=== PATIENT | female | born 1980 | race Caucasian/White ===

== ENCOUNTER 2018-10-30 12:39 | Outpatient (REF) | payer MEDICAID, SELFPAY ==
[2018-10-30 19:21] LABS: Abs Immature Grans 0.03 k/cumm (0.0-0.09); Absolute Basophil Count 0.03 k/cumm (0.0-0.2); Absolute Eosinophil Count 0.32 k/cumm (0.0-0.7); Absolute Lymphocyte Count 3.16 k/cumm (1.2-3.4); Absolute Monocyte Count 0.58 k/cumm (0.11-0.7); Basophils % 0.3; Eosinophils % 2.9; HCT 39.3 % (36.0-46.0); HGB 13.7 g/dL (12.0-15.5); Immature Grans % 0.3; Lymphocytes % 28.3; Mean Corp. HGB Concentration 34.9 g/dL (32.0-36.0); Mean Corpuscular Hemoglobin 30.9 pg (27.0-33.0); Mean Corpuscular Volume 88.5 fL (80-95); Mean Platelet Volume 9.2 fL (8.0-11.0); Monocytes % 5.2; Platelet Count 295 x1000/uL (130-400); RBC 4.44 m/cumm (4.00-5.20); RBC Distribution Width 13.6 % (11.7-14.6); White Blood Cell Count 11.15 k/cumm (4.4-10.8)
[2018-10-30 19:31] LABS: Absolute Neutrophil Count 7.02 k/cumm (1.2-6.7)
[2018-10-30 19:38] LABS: ALT 18 U/L (12-78); AST 18 U/L (15-37); Albumin 3.7 g/dL (3.4-5.0); Alkaline Phosphatase 119 U/L (46-116); Anion Gap 8.1 mmol/L (3-11); BUN 10 mg/dL (7-18); Bilirubin, Total 0.3 mg/dL (0.2-1.0); CO2 24.9 mmol/L (21.0-32.0); CREATININE 0.72 mg/dL (0.55-1.02); Calcium 9.1 mg/dL (8.5-10.1); Chloride 102 mmol/L (98-107); Glucose 97 mg/dL (70-100); Potassium 4.1 mmol/L (3.5-5.1); Sodium 135 mmol/L (136-145); TSH (W/Ref FT4) 1.01 uIU/mL (0.358-3.74); Total Protein 7.1 g/dL (6.4-8.2)
== END 2018-10-30 12:59 ==
LOC: NCHCN 12:39
PROVIDERS: PCP Specialist/Technologist Athletic Trainer; Visit Provider Nurse Practitioner Family
DX: F41.8 Other specified anxiety disorders (principal); Z00.00 Encounter for general adult medical examination without abnormal findings
CPT/HCPCS: 80053; 84443; 85025

== ENCOUNTER 2019-02-13 09:12 | Day surgery (SDC) | payer MEDICAID, SELFPAY ==
[2019-02-13 09:39] VITALS: BP 120/86; PULSE 86; RESP 18; TEMP 36.7; O2SAT 96
[2019-02-13] MEDS: Lactated Ringers 1,000 ML 80 ML IV (10:15)
--- NOTE | 2019-02-13 10:53 | PDOC.DSDIS_ITS ---
Documented by User: Vivienne Mcdaniels 02/13/19 10:54 Discharge Plan Disposition Patient Disposition: HOME Condition: Good Discharge Details Reason For Visit: Right carpal tunnel syndrome Attending Provider: Fermin Kilgore Primary Care Provider: Darius Rooney Home Meds and New Rx's Prescriptions: New acetaminophen 500 mg tablet 500 mg PO Q6H PRN (Reason: pain) Qty: 60 RF: 1 ibuprofen 600 mg tablet 600 mg PO TID PRN (Reason: pain) Qty: 60 RF: 1 Continued nicotine (polacrilex) 4 mg gum 4 mg BC Q2H RF: 0 naproxen 500 mg tablet 500 mg PO BID PRNRF: 0 sertraline 100 mg tablet 100 mg PO DAILY RF: 0 buprenorphine-naloxone [Suboxone] 1 EACH film 6 mg Sublingual DAILY RF: 0 diphenhydramine HCl [Benadryl] 25 mg Capsule 25 mg PO Q4H PRNRF: 0 diphenhydramine HCl [Benadryl] 25 mg Capsule 25 mg PO Q4H PRNRF: 0 Discharge Instructions Stand Alone Forms: Jame Madrigal Tunnel Release, DSU Post op Instructions, Roger Lopez (DSU) Referrals: Fermin Kilgore MD [ [facility] STAFF PHYSICIAN] - Activity:: Activity as Tolerated Remove Dressings/Wound Care:: 72 hours Shower/Bathe:: Cover Diet:: As Tolerated Discharge Orders Discharge Orders: Discharge Order (Routine); Ordered 02/13/19 Ordered By: Vivienne Mcdaniels Discharge Data Discharge Date/Time-TO BE ENTERED AT DEPARTURE: 02/13/19 12:41 DS: Diagnosis Discharge Diagnosis (1) Right carpal tunnel syndrome: Status: Chronic Documented by User: Fermin Kilgore MD 02/14/19 06:53 Discharge Plan Disposition Patient Disposition: HOME Condition: Good Discharge Details Reason For Visit: Right carpal tunnel syndrome Attending Provider: Fermin Kilgore Primary Care Provider: Darius Rooney Home Meds and New Rx's Prescriptions: New acetaminophen 500 mg tablet 500 mg PO Q6H PRN (Reason: pain) Qty: 60 RF: 1 ibuprofen 600 mg tablet 600 mg PO TID PRN (Reason: pain) Qty: 60 RF: 1 Continued nicotine (polacrilex) 4 mg gum 4 mg BC Q2H RF: 0 naproxen 500 mg tablet 500 mg PO BID PRNRF: 0 sertraline 100 mg tablet 100 mg PO DAILY RF: 0 buprenorphine-naloxone [Suboxone] 1 EACH film 6 mg Sublingual DAILY RF: 0 diphenhydramine HCl [Benadryl] 25 mg Capsule 25 mg PO Q4H PRNRF: 0 diphenhydramine HCl [Benadryl] 25 mg Capsule 25 mg PO Q4H PRNRF: 0 Discharge Instructions Stand Alone Forms: Jame Madrigal Tunnel Release, DSU Post op Instructions, Roger Lopez (DSU) Referrals: Fermin Kilgore MD [ [facility] STAFF PHYSICIAN] - Activity:: Activity as Tolerated Remove Dressings/Wound Care:: 72 hours Shower/Bathe:: Cover Diet:: As Tolerated Discharge Orders Discharge Orders: Discharge Order (Routine); Ordered 02/13/19 Ordered By: Vivienne Mcdaniels Discharge Data Discharge Date/Time-TO BE ENTERED AT DEPARTURE: 02/13/19 12:41
[2019-02-13] MEDS: ceFAZolin 2 GM/50 ML BAG IVPB (10:55)
[2019-02-13] MEDS: Lidocaine 1% Pres-Free 5 ML VIAL (11:16)
[2019-02-13] MEDS: Sodium Bicarbonate 50 MEQ/50 ML VIAL (11:16)
[2019-02-13 11:53] VITALS: BP 117/85; PULSE 75; RESP 16; TEMP 35.5; O2SAT 99
[2019-02-13] MEDS: Acetaminophen 325 MG TAB 650 MG PO (11:56)
--- NOTE | 2019-02-14 06:48 | ROE_ITS ---
Date of service: 02/13/19 Time of Service: 13:48 Operative Note DATE OF PROCEDURE: 02/13/19 PRE-OP DIAGNOSIS: Right Carpal Tunnel Syndrome POST-OP DIAGNOSIS: same PROCEDURE: Right Endoscopic Carpal Tunnel Release SURGEON: Fermin Kilgore ANESTHESIA: GETAdwoa ESTIMATED BLOOD LOSS: 0 PATHOLOGY: none sent TOURNIQUET TIME: 9 COMPLICATIONS: None Patient was transported to: same day Patient's condition: stable Indications: I have seen Brii in clinic for symptoms of carpal tunnel syndrome. The numbness, tingling, and pain limited function. Clinical exam findings confirmed the diagnosis of carpal tunnel syndrome. Nonoperative measures such as bracing, time, activity modifications had been tried but disability and pain persisted. I discussed carpal tunnel release with the patient. I reviewed the risks of the procedure to include, but not limited to, bleeding, infection, pain, stiffness, incomplete release, damage to nerves or vessels, persistent numbness, recurrence. Despite these risks, the patient elected to proceed. Findings: There was tightened carpal tunnel. There is also what appeared to be a very notable palmaris brevis muscle which had to be elevated separately. The carpal tunnel was dilated and released successfully with the endoscopic with increased space within the tunnel. The antebrachial fascia was released proximally freeing the median nerve at the wrist. Procedure Description: Brii was greeted in the preoperative holding area where the correct side was identified and marked. The consent was reviewed with the patient and signed. The history and physical was updated. All questions were answered. She was taken back to the operating room. The patient was placed into the supine position on the operating room table with the right arm on an arm board. A nonsterile tourniquet was placed high onto the arm. All bony prominences were well padded. Prophylactic antibiotics in the form of cefazolin were administered. The right arm was then prepped with Chloraprep and draped in a standard fashion with stockinette and extremity drape. A timeout to confirm correct identity, side and site, procedure, allergies, anesthesia, and medical concerns was performed. The surgical site was marked in the volar wrist creases in line with the radial border of the fourth ray. This area was anesthetized with approximately 6cc of 1% Lidocaine. The limb was then exsanguinated with an Esmarch. The skin was incised with a 15 blade, approximately 1cm. The skin only was cut and the deeper tissue was dissected bluntly with a tenotomy scissor, avoiding passing nerve and venous structures. The fascia was penetrated and opened bluntly. There was some notable muscle in this area. This was likely palmaris brevis. It was elevated off of the deeper layer and retracted separately. Then, a two- prong skin hook was placed under this proximal fascial edge. A series of hamate finders were used to identify and dilate the carpal tunnel. Synovial elevator was used to free synovial attachments to the underside of the transverse carpal ligament. My thumb was kept in the palm to teto the distal extent of the carpal tunnel and correctly position the hand. The Microaire endoscope was inserted without difficulty and without resistance. Excellent visualization showed horizontally running fibers of the transverse carpal ligament (TCL). The distal extent of the TCL was visualized and the end of the scope palpated with the thumb. The blade was elevated and withdrawn from distal to proximal. The TCL was split into two flaps. The endoscope was reinserted to confirm complete release and any remnant ligament was incised. The scope was withdrawn and the proximal aspect of the carpal tunnel was grossly inspected and appeared release with the median nerve visible. The antebrachial fascia at the level of the wrist was then freed from the overlying skin and then the underlying median nerve with blunt dissection. This was transected longitudinally for about 3cm proximal to the wrist incision. The wound was then irrigated with easy flow of irrigant distally and proximally. The incision was closed with a single 4-0 Nylon suture. The wound was dressed with Xeroform, Gauze, Kerlix and James. The tourniquet was deflated with the initial dressing and held with some pressure. Blood flow returned easily to all digits with capillary refill less than 2 seconds. The patient tolerated the procedure well and was returned to the Same Day Surgery area in a stable condition suffering no known complication.
== END 2019-02-13 12:41 | disposition home or self-care (01) ==
PROVIDERS: PCP Nurse Practitioner Family; Visit Provider Student in an Organized Health Care Education/Training Program
PROC: 01N54ZZ Release Median Nerve, Percutaneous Endoscopic Approach (ICD-10-PCS; CPT 29848; principal; 2019-02-13 10:15)
DX: G56.01 Carpal tunnel syndrome, right upper limb (principal)
CPT/HCPCS: 29848; 81025; J0690; L3650

== ENCOUNTER 2019-07-02 15:57 | Outpatient (REF) | payer MEDICAID, SELFPAY ==
[2019-07-02 18:55] LABS: ALT 22 U/L (14-59); AST 18 U/L (15-37); Albumin 3.7 g/dL (3.4-5.0); Alkaline Phosphatase 119 U/L (46-116); Anion Gap 6.1 mmol/L (3-11); BUN 13 mg/dL (7-18); Bilirubin, Total 0.2 mg/dL (0.2-1.0); CO2 27.9 mmol/L (21.0-32.0); CREATININE 0.76 mg/dL (0.55-1.02); Calcium 8.1 mg/dL (8.5-10.1); Chloride 102 mmol/L (98-107); Glucose 113 mg/dL (70-100); Lipase 100 U/L (73-393); Sodium 136 mmol/L (136-145); TSH (W/Ref FT4) 1.05 uIU/mL (0.36-3.74); Total Protein 6.8 g/dL (6.4-8.2)
[2019-07-02 19:00] LABS: Hemoglobin A1C 5.9 % (4.5-6.2)
[2019-07-04 09:42] LABS: FSH 8.9 mIU/mL (See Note); LH 9.1 mIU/mL (See Note)
[2019-07-04 11:19] LABS: HBs Antibody, Quant 69.1 mIU/mL; Hepatitis B Surface Ab Positive (See Note)
[2019-07-04 11:22] LABS: Hepatitis B Surface Ag Negative (Negative)
[2019-07-04 11:36] LABS: Hepatitis C Ab w Rflx HCV PCR Negative (Negative)
[2019-07-04 12:20] LABS: Hep B Core Antibody Negative (Negative)
[2019-07-04 15:22] LABS: IgA 211 mg/dL (85-499); Interpretation (See Note); Tissue Transglutaminase IgA <1.2 U/mL (<4.0)
== END 2019-07-02 16:17 ==
LOC: NCHCN 15:57
PROVIDERS: PCP Nurse Practitioner Family; Visit Provider Family Medicine
DX: R11.0 Nausea (principal); N95.1 Menopausal and female climacteric states; R53.83 Other fatigue; Z11.59 Encounter for screening for other viral diseases; Z01.84 Encounter for antibody response examination
CPT/HCPCS: 80053; 82784; 83516; 83690; 86704; 86706; 86803; 87340; 83001; 83002; 83036; 84443

== ENCOUNTER 2019-07-05 02:14 | Outpatient (CLI) | payer MEDICAID, SELFPAY ==
--- NOTE | 2019-07-05 08:30 | DI.US_ITS ---
EXAM: US ABDOMEN CLINICAL HISTORY: NAUSEA, R11.0,FATIGUE,R53.83 TECHNIQUE: Ultrasound abdomen performed using standard protocol. COMPARISON: RIGHT EXTREMITY ULTRASOUND {[id number]} from 11/28/2014 FINDINGS: LIVER: Normal. There is hepatopetal flow through the portal vein. GALLBLADDER: No evidence of cholelithiasis. No evidence of wall thickening. No pericholecystic fluid identified. There is artifact emanating from the wall of the gallbladder suggestive of adenomyomatos is. KIDNEYS: Kidneys are symmetric in size. No evidence of renal calculi. No evidence of hydronephrosis. There is a 1.6 x 1.4 x 1.5 centimeter simple left renal cyst in the midpole. No solid renal mass is present. BILIARY SYSTEM: Common bile duct measures 3.2 millimeters. No intrahepatic biliary ductal dilation. NAQVI'S SIGN: Negative. PANCREAS: Normal where visualized. SPLEEN: Not enlarged. ABDOMINAL AORTA AND IVC: Visualized portions normal caliber. ASCITES: None seen. IMPRESSION: 1. Finding sonographically suggestive of adenomyomatosis of the gallbladder. 2. 1.6 centimeter simple cyst on the left kidney.
== END 2019-07-05 02:34 ==
PROVIDERS: PCP Nurse Practitioner Family; Visit Provider Family Medicine
DX: R11.0 Nausea (principal); R53.83 Other fatigue; K82.8 Other specified diseases of gallbladder; N28.1 Cyst of kidney, acquired
CPT/HCPCS: 76700

== ENCOUNTER 2019-08-31 02:06 | Outpatient (CLI) | payer MEDICAID, SELFPAY ==
--- NOTE | 2019-08-31 09:01 | DI.NM_ITS ---
EXAM: NM HEPATOBILIARY CCK GRP CLINICAL HISTORY: nausea, R11.0. COMPARISON: No exams were available for comparison FINDINGS: 4.9 millicuries of technetium 99 M mebrofenin were administered IV. There is normal hepatic uptake. The gallbladder and small bowel are promptly visualized. 1.0 micrograms of Kinevac were administer ed via IV drip over 45 minutes. Gallbladder ejection fraction is at the lower range of normal at 43 percent. IMPRESSION: Gallbladder ejection fraction is at the lower limits of normal range.
== END 2019-08-31 02:26 ==
PROVIDERS: PCP Family Medicine; Visit Provider Surgery
DX: R11.0 Nausea (principal)
CPT/HCPCS: 78227

== ENCOUNTER 2019-10-23 14:09 | Outpatient (CLI) | payer MEDICAID, SELFPAY ==
[2019-10-23 14:56] LABS: Abs Immature Grans 0.03 k/cumm (0.0-0.09); Absolute Basophil Count 0.05 k/cumm (0.0-0.2); Absolute Eosinophil Count 0.41 k/cumm (0.0-0.7); Absolute Lymphocyte Count 4.54 k/cumm (1.2-3.4); Absolute Monocyte Count 0.51 k/cumm (0.11-0.7); Absolute Neutrophil Count 5.84 k/cumm (1.2-6.7); Basophils % 0.4; Eosinophils % 3.6; HCT 42.6 % (36.0-46.0); HGB 14.7 g/dL (12.0-15.5); Immature Grans % 0.3 %; Lymphocytes % 39.9; Mean Corp. HGB Concentration 34.5 g/dL (32.0-36.0); Mean Corpuscular Hemoglobin 30.1 pg (27.0-33.0); Mean Corpuscular Volume 87.3 fL (80-95); Mean Platelet Volume 8.4 fL (8.0-11.0); Monocytes % 4.5; Neutrophils % 51.3; Platelet Count 352 x1000/uL (130-400); RBC 4.88 m/cumm (4.00-5.20); RBC Distribution Width 13.5 % (11.7-14.6); White Blood Cell Count 11.38 k/cumm (4.4-10.8)
[2019-10-23 15:42] LABS: Albumin 3.9 g/dL (3.4-5.0); Alkaline Phosphatase 130 U/L (46-116); Anion Gap 9.9 mmol/L (3-11); BUN 10 mg/dL (7-18); Bilirubin, Direct 0.06 mg/dL (0.00-0.20); Bilirubin, Total 0.3 mg/dL (0.2-1.0); CO2 28.1 mmol/L (21.0-32.0); CREATININE 0.72 mg/dL (0.55-1.02); Chloride 101 mmol/L (98-107); Glucose 96 mg/dL (74-106); Potassium 4.3 mmol/L (3.5-5.1); Sodium 139 mmol/L (136-145); Total Protein 7.7 g/dL (6.4-8.2)
[2019-10-23 15:45] LABS: Calcium 8.6 mg/dL (8.5-10.1)
[2019-10-23 15:58] LABS: ALT 8 U/L (14-59); AST 27 U/L (15-37); GGT 35 U/L (5-55)
[2019-10-24 11:51] LABS: Hepatitis B Surface Ag Negative (Negative)
[2019-10-24 12:59] LABS: Hep A Total Ab w Rflx IgM Negative (Negative)
[2019-10-24 13:00] LABS: Hepatitis C Ab w Rflx HCV PCR Negative (Negative)
[2019-10-24 13:01] LABS: HIV-1/2 Ag & Ab Screen Negative (Negative)
== END 2019-10-23 14:29 ==
PROVIDERS: PCP Family Medicine; Visit Provider Nurse Practitioner Adult Health
DX: F11.20 Opioid dependence, uncomplicated (principal)
CPT/HCPCS: 36415; 80053; 80076; 86709; 86803; 87340; 87389; 82977; 85025

== ENCOUNTER 2020-02-01 15:08 | Outpatient (REF) | payer MEDICAID, SELFPAY ==
--- NOTE | 2020-02-01 13:30 | PAPFT_PTH ---
PATIENT: Brii Domínguez LOC: [facility]#:[id number] AGE/SX: 39/F ROOM: RE02/01/[address]: Jennifer Barrera : 1980 BED: DIS: 02/01/2020 SPEC #: [id number] RECD: 02/04/20 12:55 STATUS: ELLIOTT REQ #: [id number] NAY: 02/01/20 13:[address]: Jennifer Barrera [facility]PT: [facility] Cytology RECD BY: Pepper Lyons Tissues: 1 - CX/ENDOCX FOR PAP SMEARS Procedures: PAP THIN PREP/UVM Screening HPV DNA PROBE Comments: [id number] (CHLAMYDIA/GC)
[2020-02-05 15:42] LABS: Chlamydia Result Negative (Negative); GC Result Negative (Negative)
== END 2020-02-01 15:28 ==
LOC: NCHCN 15:08
PROVIDERS: PCP Family Medicine; Visit Provider Family Medicine
DX: Z12.4 Encounter for screening for malignant neoplasm of cervix (principal); Z11.51 Encounter for screening for human papillomavirus (HPV); Z11.3 Encounter for screening for infections with a predominantly sexual mode of transmission
CPT/HCPCS: 87491; 87591; 88142; 87624

== ENCOUNTER 2020-02-07 01:11 | Outpatient (CLI) | payer MEDICAID, SELFPAY ==
--- NOTE | 2020-02-07 | DI.US_ITS ---
EXAM: US PELVIS TRANSVAGINAL CLINICAL HISTORY: ENLARGED UTERUS, N85.2 TECHNIQUE: Ultrasound performed using standard protocol. COMPARISON: US US ABDOMEN from 07/05/2019 FINDINGS: Pelvic ultrasound was performed transabdominally and transvaginally. Please see the accompanying corinne a sheet for measurements of pelvic structure. The endometrium is about 10 millimeters in thickness. Endometrium contains a 3-4 millimeter in diameter cyst, this may represent an endometrial cyst, irby benjamin intrauterine gestational sac is not excluded on the basis of this examination, correlation with p regnancy test is suggested. Otherwise the uterus is unremarkable in appearance with normal appearing myometrium. No free fluid identified in the cul-de-sac. The ovaries have a normal follicular appearance and show normal vascular flow bilaterally. Limited scanning of the kidneys is unremarkable. IMPRESSION: Endometrial cyst, early gestational sac not excluded. Correlation with test suggested if c linically appropriate. DATA REPOSITORY:
== END 2020-02-07 01:31 ==
PROVIDERS: PCP Family Medicine; Visit Provider Family Medicine
DX: N85.2 Hypertrophy of uterus (principal); N85.8 Other specified noninflammatory disorders of uterus
CPT/HCPCS: 76830; 76856

== ENCOUNTER 2020-02-18 10:52 | Outpatient (REF) | payer MEDICAID, SELFPAY ==
[2020-02-18 18:22] LABS: HCG Qual (Serum) Negative
== END 2020-02-18 11:12 ==
LOC: NCHCN 10:52
PROVIDERS: PCP Family Medicine; Visit Provider Family Medicine
DX: R10.30 Lower abdominal pain, unspecified (principal); N85.2 Hypertrophy of uterus
CPT/HCPCS: 84703

== ENCOUNTER 2020-09-03 04:22 | Outpatient (CLI) | payer MEDICAID, SELFPAY ==
[2020-09-03 11:36] LABS: Abs Immature Grans 0.03 10^3/uL (0.0-0.06); Absolute Basophil Count 0.05 10^3/uL (0.0-0.2); Absolute Eosinophil Count 0.33 10^3/uL (0.0-0.7); Absolute Lymphocyte Count 3.44 10^3/uL (1.2-3.4); Absolute Monocyte Count 0.47 10^3/uL (0.1-0.8); Absolute Neutrophil Count 5.55 10^3/uL (1.2-6.7); Basophils % 0.5; Eosinophils % 3.3; Immature Grans % 0.3; Lymphocytes % 34.9; MCH 30.6 pg (27.0-33.0); MCV 87.3 fL (80-95); MPV 8.6 fL (8.0-11.0); Monocytes % 4.8; Neutrophils % 56.2; Nucleated RBC 0 %; Platelet Count 256 10^3/uL (130-400); RBC 4.58 10^6/uL (3.93-5.22); RDW 13.1 % (11.7-14.6); RDW-SD 41.5 fL; WBC 9.87 10^3/uL (4.4-10.8)
[2020-09-03 12:09] LABS: ALT 17 U/L (14-59); AST 12 U/L (15-37); Albumin 3.4 g/dL (3.4-5.0); Alkaline Phosphatase 115 U/L (46-116); BUN 8 mg/dL (7-18); Bilirubin, Direct 0.05 mg/dL (0.00-0.20); Bilirubin, Total 0.2 mg/dL (0.2-1.0); CREATININE 0.86 mg/dL (0.55-1.02); Calcium 8.5 mg/dL (8.5-10.1); Chloride 103 mmol/L (98-107); Glucose 118 mg/dL (74-106); Potassium 3.8 mmol/L (3.5-5.1); Sodium 137 mmol/L (136-145); Total Protein 6.6 g/dL (6.4-8.2)
[2020-09-03 12:15] LABS: GGT 29 U/L (5-55)
[2020-09-04 09:17] LABS: Hepatitis B Surface Ag Negative (Negative)
[2020-09-04 10:00] LABS: HIV-1/2 Ag & Ab Screen Negative (Negative)
[2020-09-04 10:15] LABS: Hepatitis C Ab w Rflx HCV PCR Negative (Negative)
[2020-09-04 10:26] LABS: Hep A Total Ab w Rflx IgM Negative (Negative)
== END 2020-09-03 04:42 ==
PROVIDERS: Nurse Practitioner; PCP Family Medicine
DX: F11.20 Opioid dependence, uncomplicated (principal); Z11.59 Encounter for screening for other viral diseases; Z11.4 Encounter for screening for human immunodeficiency virus [HIV]
CPT/HCPCS: 36415; 80053; 80076; 86709; 86803; 87340; 87389; 82977; 85025

== ENCOUNTER 2020-12-05 08:37 | Outpatient (CLI) | payer MEDICAID, SELFPAY ==
--- NOTE | 2020-12-05 11:30 | DI.CT_ITS ---
EXAM: CT RENAL COLIC WO CLINICAL HISTORY: HEMATURIA R31.9. TECHNIQUE: Imaging Protocol: Axial computed tomography images with coronal and sagittal reformatted images were created and reviewed. CONTRAST MATERIAL: Noncontrast COMPARISON: US US ABDOMEN from 07/05/2019 FINDINGS: ABDOMEN: Lung Bases: Normal where visualized. Liver: Normal attenuation. No measurable mass. Gallbladder and biliary tract: Phrygian cap. No radiodense calculus or biliary dilation. Pancreas: Normal density, no calcifications or inflammatory process. Spleen: Normal. Kidneys: Normal size, contour and axis. No radiodense stones or obstructive uropathy. No masses seen. No perinephric collection. Two small cysts are noted at the upper and mid left kidney. Adrenal glands: No masses seen. Abdominal Aorta: Abdominal portion non-dilated. PELVIS: Bladder: Nearly empty. Apparent circumferential wall thickening which could indicate cystitis. No f ocal mass is visible. Bowel: No obstruction or bowel wall thickening. Normal appendix. Increased quantity of stool. Peritoneal cavity: No ascites, collection or mesenteric inflammatory response. Reproductive: Unremark able. Bones: Within normal limits. IMPRESSION: No evidence of urinary tract calculi. Diffusely thickened bladder wall which could indicate cystitis . Clinical correlation is recommended. RADIATION DOSE DELIVERED: 705mGy.cm Total DLP DATA REPOSITORY: All CT scans at this facility are submitted to the National Radiology Data Registry (NRDR) Dose Index Registry (DIR) with the [employer] (ACR). RADIATION OPTIMIZATION: All CT scans at this facility use at least one of these dose optimization te chniques: automated exposure control; mA and/or kV adjustment per patient size (includes targeted exa ms where dose is matched to clinical indication); or iterative reconstruction.
== END 2020-12-05 08:57 ==
PROVIDERS: PCP Family Medicine; Visit Provider Physician Assistant Medical
DX: R31.9 Hematuria, unspecified (principal); N32.89 Other specified disorders of bladder
CPT/HCPCS: 74176

== ENCOUNTER 2020-12-05 11:24 | Outpatient (REF) | payer MEDICAID, SELFPAY ==
[2020-12-05 12:53] LABS: Abs Immature Grans 0.03 10^3/uL (0.0-0.06); Absolute Basophil Count 0.06 10^3/uL (0.0-0.2); Absolute Eosinophil Count 0.36 10^3/uL (0.0-0.7); Absolute Lymphocyte Count 4.54 10^3/uL (1.2-3.4); Basophils % 0.5; HCT 40.3 % (36.0-46.0); HGB 14.1 g/dL (11.2-15.7); Immature Grans % 0.3; Lymphocytes % 38.2; MCH 30.8 pg (27.0-33.0); MPV 8.8 fL (8.0-11.0); Monocytes % 5.1; Neutrophils % 52.9; Nucleated RBC 0 %; Platelet Count 295 10^3/uL (130-400); RBC 4.58 10^6/uL (3.93-5.22); RDW 13.2 % (11.7-14.6); RDW-SD 42.3 fL; WBC 11.88 10^3/uL (4.4-10.8)
[2020-12-05 12:55] LABS: Absolute Monocyte Count 0.61 10^3/uL (0.1-0.8); Absolute Neutrophil Count 6.28 10^3/uL (1.2-6.7)
[2020-12-05 13:11] LABS: ALT 21 U/L (14-59); AST 16 U/L (15-37); Albumin 3.8 g/dL (3.4-5.0); Alkaline Phosphatase 104 U/L (46-116); Anion Gap 8.4 mmol/L (3-11); BUN 12 mg/dL (7-18); Bilirubin, Total 0.3 mg/dL (0.2-1.0); CO2 23.6 mmol/L (21.0-32.0); CREATININE 0.8 mg/dL (0.55-1.02); Calcium 8.9 mg/dL (8.5-10.1); Chloride 102 mmol/L (98-107); Glucose 91 mg/dL (74-106); Potassium 4.4 mmol/L (3.5-5.1); Sodium 134 mmol/L (136-145); Total Protein 7.1 g/dL (6.4-8.2)
== END 2020-12-05 11:25 | disposition home or self-care (01) ==
LOC: NCHCN 11:24
PROVIDERS: PCP Family Medicine; Visit Provider Physician Assistant Medical
DX: R31.9 Hematuria, unspecified (principal)
CPT/HCPCS: 80053; 85025; 87086

== ENCOUNTER 2021-03-02 02:54 | Outpatient (CLI) | payer MEDICAID, SELFPAY ==
[2021-03-02 11:47] LABS: Source Nasal/Nares
[2021-03-02 16:50] LABS: COVID-19 PCR Negative (Negative)
== END 2021-03-02 02:55 | disposition home or self-care (01) ==
LOC: LBO 02:54
PROVIDERS: PCP Family Medicine; Visit Provider Surgery
DX: Z20.822 Contact with and (suspected) exposure to COVID-19 (principal); Z01.818 Encounter for other preprocedural examination
CPT/HCPCS: 87635

== ENCOUNTER 2021-03-03 09:18 | Outpatient (CLI) | payer MEDICAID, SELFPAY ==
[2021-03-03 11:11] LABS: ALT 16 U/L (14-59); AST 13 U/L (15-37); GGT 31 U/L (5-55)
== END 2021-03-03 09:19 | disposition home or self-care (01) ==
PROVIDERS: PCP Family Medicine; Visit Provider Physician Assistant
DX: F11.20 Opioid dependence, uncomplicated (principal)
CPT/HCPCS: 36415; 82977; 84450; 84460

== ENCOUNTER 2021-03-04 09:28 | Day surgery (SDC) | payer MEDICAID, SELFPAY ==
--- NOTE | 2021-03-04 06:39 | W.PM.ENDDOP ---
Date of service: 03/04/21 Time of Service: 11:41 Endoscopy Report DATE OF PROCEDURE: 03/04/21 PRE-OP DIAGNOSIS: Dysphagia, pain with swallowing POST-OP DIAGNOSIS: same (gastric ulcer, esophageal polyp) PROCEDURE: EGD with biopsies SURGEON: Cheri Flores ANESTHESIA TYPE: General:No Airway (ASA 2/ Clotilde Justice CRNA) ESTIMATED BLOOD LOSS: 3 PATHOLOGY: other (stomach ulcer, esophageal polyp) COMPLICATIONS: None DISPOSITION: same day INDICATIONS: Ms Domínguez is a pleasant 40-year-old female who is been having some pressure/pain as she swallows in the mid chest behind the sternum. It lasts just as long as it takes for the food to get into her stomach. She has also had intermittent hiccups which can be pretty severe. She has had chronic nausea since August. She did try a PPI for a while but that did not help. She is a smoker of 1 pack a day for 27 years. She used to drink alcohol excessively but stopped 6 years ago. She also used to do drugs but is now on Suboxone. She has not had any changes in bowel habit and no weight loss. There is no family history of esophageal, gastric or colon cancer that she is aware of. We discussed doing an upper endoscopy to look for inflammation, ulcers, Simon's. EGD under sedation Risks, benefits and complications have been reviewed. Complications include but are not limited to bleeding, pain, perforation, sore throat, aspiration, and adverse reaction to the medications. Questions were entertained and answered to their satisfaction and they wished to proceed. No guarantees were given or implied. FINDINGS: solitary lesion/ulcer in the antrum solitary polyp?/lesion in the mid esophagus PROCEDURE DESCRIPTION: After informed consent was obtained the patient was take to the procedure room and placed in a supine position. Monitors were applied and a time out was done. The patients name, date of , procedure type, allergies to medications and metal in their body was reviewed. A bite block was placed and the patient was sedated. Once sedated and comfortable the gastroscope was advanced through the oropharynx which was grossly normal into the esophagus. The proximal and mid-esophagus were normal. In the distal esophagus there was no inflammation noted. The scope was advanced into the stomach and through the pylorus into the 3rd portion of the duodenum. The duodenum was noted to be normal. The scope was retracted back into the stomach. there was no inflammation noted. There was one solitary lesion/ulcer in the antrum and this was biopsied. The scope was retroflexed. The cardia and fundus were noted to be normal. There was no hiatal hernia noted. The scope was retracted back into the esophagus and biopsies were done of the GE junction to rule out Simon's. The Z line was regular. The GE junction was at 40 cm. In the mid esophagus there was a lesion/polyp. This was biopsied. The scope was removed and the patient was woken up and taken back to [facility] in stable condition. Follow up: 2 weeks in the office
--- NOTE | 2021-03-04 06:43 | PDOC.DSDIS_ITS ---
Discharge Plan Disposition Patient Disposition: HOME Condition: Good Discharge Details Reason For Visit: EGD Attending Provider: Cheri Flores Primary Care Provider: Jennifer Barrera Home Meds and New Rx's Prescriptions: Continued sertraline 100 mg tablet 100 mg PO DAILY RF: 0 buprenorphine-naloxone [Suboxone] 1 EACH film 8 mg Sublingual DAILY RF: 0 diphenhydramine HCl [Benadryl] 25 mg Capsule 25 mg PO Q4H PRNRF: 0 acetaminophen 500 mg tablet 500 mg PO Q6H PRN (Reason: pain) Qty: 60 RF: 1 ibuprofen 600 mg tablet 600 mg PO TID PRN (Reason: pain) Qty: 60 RF: 1 inulin 2.5 gram Tablet,Chewable PO RF: 0 Discharge Instructions Additional Instructions: Findings: ? solitary ulcer in the stomach- biopsies done polyp in the esophagus no inflammation Follow up: 2 weeks in the office Please call if you develop: fevers >101.5 Nausea or Vomiting Abdominal pain that is not transient Rectal bleeding that is more then a tbsp A hard abdomen and inability to pass gas DAY SURGERY UNIT POST ENDOSCOPY INSTRUCTIONS Instructions for everyone who is given Anesthesia: For your safety, please do the following for the next 24 Hours: a. Do not drive or operate dangerous equipment b. Do not drink alcohol beverages or use any recreational drugs for the first 24 hours or while taking pain medications. The medications in your body may have a reaction that can be dangerous. c. Do not make any important decisions or sign any important papers 1. Generally there are no restrictions on your activity after a day or so has gone by, but you may feel a bit fatigued for a few days. 2. After you arrive home you may have a light meal and return to a normal diet as you can tolerate it without feeling sick to your stomach. 3. After surgery, you may feel pain or discomfort. This should be only transient, but if it persists please contact your doctor. 4. If there are any questions regarding the findings of your procedure, please feel free to contact your doctor. 6. If you are unable to contact your doctor with a problem, contact the hospital at [phone]. 7. Continue all your regular medications unless directed otherwise. I understand the above instructions and have no questions. Signature of Patient or Responsible Adult Escort Date/Time Name of Responsible Adult Escort Signature of Nurse Date/Time Referrals: Cheri Flores MD [ [facility] STAFF PHYSICIAN] - Activity:: Activity as Tolerated Diet:: As Tolerated Discharge Orders Discharge Orders: Discharge Order (Routine); Ordered 03/04/21 Ordered By: Cheri Flores
[2021-03-04 09:46] VITALS: BP 112/83; PULSE 87; RESP 16; TEMP 36.5; O2SAT 97
[2021-03-04] MEDS: Lactated Ringers 1,000 ML 80 ML IV (10:05)
--- NOTE | 2021-03-04 10:22 | ANES.PREOP_ITS ---
General Info Date of Service Date Performed: 03/04/21 Height: 5 ft 3 in Weight: 64 kg Body Mass Index (BMI): 25.0 Surgical Procedure: Operation Date: 03/04/21 10:20 Proposed Procedures Side Surgeon p Gastroscopy Cheri Flores MD Meds Allergies and Home Medications Allergies Allergy/AdvReac Type Severity Reaction Status Date / Time metronidazole [From Flagyl] Allergy Mild Unknown Unverified 03/04/21 09:54 Reaction Home Medication Medication Instructions Recorded buprenorphine-naloxone [Suboxone] 8 mg SUBLINGUAL DAILY film 01/26/17 sertraline 100 mg tablet 100 mg PO DAILY 11/07/18 acetaminophen 500 mg PO Q6H PRN #60 tab 02/13/19 diphenhydramine HCl [Benadryl] 25 mg PO Q4H PRN 02/13/19 ibuprofen 600 mg PO TID PRN #60 tab 02/13/19 inulin [Fiber Gummies] g PO 03/04/21 Current Visit Medications: Current Medications Generic Name Dose Route Start Last Admin Trade Name Isacq PRN Reason Stop Dose Admin Hyoscyamine Sulfate 0.125 mg 03/04/21 06:44 Hyoscyamine 0.125 Mg Sl/Oral/Chew SL DIRECTED PRN Ringer's Solution 1,000 mls @ 80 mls/hr 03/04/21 06:00 03/04/21 10:05 IV 04/02/21 23:59 80 mls/hr INFUSION MISBAH Administration IV Miscellaneous Supplies 1 each 03/04/21 06:00 Iv Access IV 04/02/21 23:59 DIRECTED MISBAH Ondansetron HCl 4 mg 03/04/21 06:44 Ondansetron 4 Mg/2 Ml Vial IVP Q4H PRN PRN Nausea / Vomiting Sodium Chloride 0 ml 03/04/21 06:00 Normal Saline Flush 10 Ml Syr IV 04/02/21 23:59 PRN PRN Sodium Chloride 0 ml 03/04/21 06:00 Normal Saline 10 Ml Vial IJ 04/02/21 23:59 DIRECTED PRN Sterile Water 0 ml 03/04/21 06:00 Water,Injection,Sterile 10 Ml Vial IJ 04/02/21 23:59 DIRECTED PRN PFSH Active Problems Active Problems: Problem Status Onset Code Hot flashes R23.2 Nausea R11.0 Constipation K59.00 Tobacco dependence F17.200 Edema of hand R60.0 Disorder of gallbladder K82.9 Right carpal tunnel syndrome G56.01 Left carpal tunnel syndrome G56.02 Anxiety F41.9 Depression F32.9 History of opioid abuse F11.11 Medical History Medical History Anxiety and depression Carpal tunnel syndrome on both sides Constipation Edema of hand Fatigue History of opioid abuse Enrolled in [place] Takes suboxone Hot flashes Left carpal tunnel syndrome Nausea Recurrent moderate major depressive disorder with anxiety Right carpal tunnel syndrome Sleep disorder Substance abuse Tobacco dependence Surgical History Surgical History Hx of carpal tunnel repair R side Tobacco Smoking/Tobacco Use Status: Current every day Tobacco Type: cigarettes Alcohol Alcohol Intake: former Substance Use Substance use: Current Sobriety Substance use type: does not use Vital Signs and Lab Results Vital Signs Most Recent Vital Signs in EMR: Most Recent Vital Signs Temp Pulse Resp BP Pulse Ox 36.5 C 87 16 112/83 97 03/04/21 09:46 03/04/21 09:46 03/04/21 09:46 03/04/21 09:46 03/04/21 09:46 Lab Results Blood Type / Crossmatch: 2 No Data to Display Complete Blood Count: No Data to Display Complete Metabolic Panel: No Data to Display Liver Function Panel: Alanine Aminotransferase (ALT/SGPT) 16 U/L (14-59) 03/03/21 10:15 03/03/21 Aspartate Amino Transf (AST/SGOT) 13 U/L (15-37) L 03/03/21 10:15 03/03/21 Gamma Glutamyl Transpeptidase 31 U/L (5-55) 03/03/21 10:15 03/03/21 Coagulation Panel: No Data to Display Cardiac Panel: No Data to Display Arterial Blood Gas: No Data to Display Venous Blood Gas: No Data to Display Pancreas Panel: No Data to Display Thyroid Panel: No Data to Display Infectious Disease: Coronavirus (COVID-19)(PCR) Negative (Negative) 03/02/21 08:56 03/02/21 Coronavirus 2019 Source Nasal/Nares 03/02/21 08:56 07/19/21 Blood Cultures: No Data to Display Toxicology Panel: No Data to Display Panel: No Data to Display Anesthesia Assessment and Plan Anesthesia History Personal History: No History of Anesthesia Complications Family History: No Family History of Anesthesia Complications Exercise Tolerance Exercise Tolerance: Metabolic Equivalents>4 Pertinent Negatives Pertinent Negatives: No Symptoms of GERD, No Major Cardiovascular Symptoms or Complaints and No Major Pulmonary Symptoms or Complaints Cardiac & Pulmonary Exam Cardiac Exam: Normal S1/S2 Heart Sounds Pulmonary Exam: Clear Bilateral Breath Sounds Airway Exam Known Difficult Airway: No Mallampati Class: 2 Mouth Opening: Normal (> 3cm) Thyromental Distance: Greater than 3 cm Neck Range of Motion: Full ROM Neck Circumference: Normal Teeth Condition: Normal Dentition Airway Comments: Sensitive front teeth, a couple of missing molars, none loose per patient. ASA Classification ASA Score: ASA 2 Emergency Case?: No NPO Status NPO Status: NPO Clears >2 hours, Solids >8 hours Status Status: Negative HCG Anesthesia Plan Resuscitation Status: Full Code Anesthesia Technique: General Anesthesia Airway Planned: Natural Airway Monitors Used: Standard Monitors
[2021-03-04 11:02] VITALS: BMI 25.0
--- NOTE | 2021-03-04 11:15 | STOM_PTH ---
PATIENT: Brii Domínguez LOC: [facility] U#:[id number] AGE/SX: 40/F ROOM: RE03/04/[address]: Cheri Flores MD : 1980 BED: DIS: 03/04/2021 SPEC #: [id number] RECD: 03/04/21 13:05 STATUS: ELLIOTT RESelina #: [id number] NAY: 03/04/21 11:[address]: Cheri Flores DEPT: Surgical Specimen RECD BY: Pepper Lyons ENTERED: 03/04/21 13:06 SP TYPE: STOMACH OTHR DR: Jennifer Barrera Tissues: 1 - STOMACH BIOPSY 2 - ESOPHAGUS BIOPSY 3 - ESOPHAGUS BIOPSY Procedures: GROSS AND MICRO LEVEL 4 Comments: [id number]
[2021-03-04 11:26] VITALS: BP 85/59; PULSE 87; RESP 24; TEMP 36.2; O2SAT 95
--- NOTE | 2021-03-04 11:40 | W.ANESPOSTOP ---
Postoperative Evaluation Date, Time and Location Date Performed: 03/04/21 Time Performed: 11:33 Patient Location: Day [facility] Unit Vital Signs Most Recent Imported Vital Signs: Most Recent Vital Signs Temp Pulse Resp BP Pulse Ox 36.2 C L 87 24 85/59 L 95 03/04/21 11:26 03/04/21 11:26 03/04/21 11:26 03/04/21 11:26 03/04/21 11:26 Pain Score Most Recent Pain Score: Most Recent Pain Score Pain Level 0 03/04/21 09:46 Assessment Mental Status: Awake (Alert & Oriented to Patient Baseline) Airway and Respiratory Function: Patent airway with normal (patient baseline) respiratory exam Cardiovascular Function: Hemodynamically Stable Hydration Status: Adequately Hydrated Nausea & Vomiting: No Nausea or Vomiting Pain: Pt. Denies Any Pain Peripheral Nerve Block: Patient did not receive a nerve block
[2021-03-04 11:58] VITALS: BP 102/73; PULSE 79; RESP 16; TEMP 36.2; O2SAT 97
== END 2021-03-04 12:25 | disposition home or self-care (01) ==
LOC: SUR 09:28
PROVIDERS: PCP Family Medicine; Visit Provider Surgery
PROC: 0DJ68ZZ Inspection of Stomach, Via Natural or Artificial Opening Endoscopic (ICD-10-PCS; CPT 43235; principal; 2021-03-04 10:15)
DX: K20.0 Eosinophilic esophagitis (principal); R13.10 Dysphagia, unspecified; K25.9 Gastric ulcer, unspecified as acute or chronic, without hemorrhage or perforation; K22.8 Other specified diseases of esophagus; K31.89 Other diseases of stomach and duodenum
CPT/HCPCS: 43239; 81025; 88305; J2001

== ENCOUNTER 2021-06-01 22:15 | Outpatient (REF) | payer MEDICAID, SELFPAY ==
[2021-06-03 12:18] LABS: COVID-19 RT-PCR UVMMC Result Positive (Negative)
== END 2021-06-01 22:16 | disposition home or self-care (01) ==
LOC: LBN 22:15
PROVIDERS: PCP Family Medicine; Visit Provider Physician Assistant Medical
DX: Z20.822 Contact with and (suspected) exposure to COVID-19 (principal); J06.9 Acute upper respiratory infection, unspecified
CPT/HCPCS: U0003

== ENCOUNTER 2021-10-13 03:33 | Outpatient (CLI) | payer MEDICAID, SELFPAY ==
[2021-10-13 11:23] LABS: ALT 15 U/L (14-59); AST 10 U/L (15-37); GGT 31 U/L (5-55)
== END 2021-10-13 03:34 | disposition home or self-care (01) ==
LOC: LBO 03:33
PROVIDERS: PCP Family Medicine; Visit Provider Nurse Practitioner Gerontology
DX: F11.20 Opioid dependence, uncomplicated (principal)
CPT/HCPCS: 36415; 82977; 84450; 84460

== ENCOUNTER 2021-10-13 18:46 | Outpatient (REF) | payer MEDICAID, SELFPAY ==
[2021-10-13 20:42] LABS: ALT 18 U/L (14-59); AST 13 U/L (15-37); Albumin 3.8 g/dL (3.4-5.0); Alkaline Phosphatase 112 U/L (46-116); Anion Gap 9.3 mmol/L (3-11); BUN 13 mg/dL (7-18); Bilirubin, Total 0.2 mg/dL (0.2-1.0); CO2 25.7 mmol/L (21.0-32.0); CREATININE 0.7 mg/dL (0.55-1.02); Calcium 8.7 mg/dL (8.5-10.1); Chloride 101 mmol/L (98-107); Glucose 100 mg/dL (74-106); Potassium 3.6 mmol/L (3.5-5.1); Sodium 136 mmol/L (136-145); TSH 1.08 uIU/mL (0.36-3.74); Total Protein 7.3 g/dL (6.4-8.2)
[2021-10-13 20:43] LABS: HCT 39.1 % (36.0-46.0); MCHC 33.2 % (32.0-36.0); MCV 90.3 fL (80-95); MPV 8.7 fL (8.0-11.0); Platelet Count 308 10^3/uL (130-400); RBC 4.33 10^6/uL (3.93-5.22); RDW-SD 43.1 fL; WBC 11.49 10^3/uL (4.4-10.8)
[2021-10-15 08:33] LABS: IgG 1024 mg/dL (610-1,616)
== END 2021-10-13 18:47 | disposition home or self-care (01) ==
LOC: NCHCN 18:46
PROVIDERS: PCP Family Medicine; Visit Provider Nurse Practitioner Family
DX: R53.83 Other fatigue (principal); F41.8 Other specified anxiety disorders; F11.20 Opioid dependence, uncomplicated; Z00.00 Encounter for general adult medical examination without abnormal findings; L29.8 Other pruritus
CPT/HCPCS: 80053; 82784; 85027; 84443

== ENCOUNTER 2022-05-10 20:48 | Outpatient (REF) | payer MEDICAID, SELFPAY | END 2022-05-10 20:49 | disposition home or self-care (01) | LOC: LBN 20:48 | PROVIDERS: PCP Family Medicine; Visit Provider Nurse Practitioner Family | DX: R30.9 Painful micturition, unspecified (principal) | CPT/HCPCS: 87086 ==

== ENCOUNTER → 2023-06-28 00:41 | Outpatient (CLI) | payer MEDICAID, SELFPAY ==
--- NOTE | 2023-06-28 | DI.MAMMO_ITS ---
Exam(s) MAMMO SCREENING EXAM: MAMMO SCREENING CLINICAL HISTORY: Z12.39 Screening. TECHNIQUE: Bilateral full field digital CC and MLO mammographic images were obtained with 3D tomosyn thesis and utilizing computer aided detection (CAD). COMPARISON: None. This is a baseline mammogram on this 43-year-old patient. FINDINGS: Fibroglandular tissue is moderately dense, this somewhat decreasing the sensitivity of the mammogram for finding hidden underlying lesions. There are no obvious spiculated masses nor malignant appearing microcalcification groups. There is no significant architectural distortion nor skin thickening-retraction. IMPRESSION: Dense bilateral fibroglandular tissue. No obvious radiographic evidence of malignancy. BI-RADS Category 1 - Negative Breast Density - Category C - Heterogeneously dense Breast density Category C or D implies that the patient has dense breast tissue. Dense breast tissue can make it harder to find cancer on a mammogram. Dense breast tissue is also associated with an incr eased risk of breast cancer. This information about the result of the mammogram report was provided to the patient to raise their awareness. Use this report when you speak with the patient about their risks for breast cancer, which includes their family history. At that time, you may recommend additional screening tests (Ultrasoun d or MRI) as these tests may add significant information. A negative radiographic report should not delay biopsy if a dominant or clinically suspicious mass is present. Up to ten percent of cancers are not identified on mammography. A negative report may reinforce clinical impression. Adenosis and dense breasts may obscure an underlying neoplasm. False positive reports average 6 to 10%. Patient will receive a letter notifying them of these results.
== END ==
PROVIDERS: PCP Family Medicine; Visit Provider Physician Assistant
DX: Z12.31 Encounter for screening mammogram for malignant neoplasm of breast (principal)
CPT/HCPCS: 77063; 77067

== ENCOUNTER 2023-10-11 21:55 | Outpatient (REF) | payer MEDICAID, SELFPAY | END 2023-10-11 21:56 | disposition home or self-care (01) | LOC: LBN 21:55 | PROVIDERS: PCP Family Medicine; Visit Provider Nurse Practitioner Family | DX: L02.511 Cutaneous abscess of right hand (principal); L03.011 Cellulitis of right finger | CPT/HCPCS: 87077; 87070; 87186; 87205 ==

== ENCOUNTER 2023-11-18 17:44 | Outpatient (REF) | payer MEDICAID, SELFPAY ==
[2023-11-18 19:12] LABS: Abs Immature Grans 0.03 10^3/uL (0.0-0.06); Absolute Basophil Count 0.06 10^3/uL (0.0-0.2); Absolute Eosinophil Count 0.25 10^3/uL (0.0-0.7); Absolute Lymphocyte Count 4.64 10^3/uL (1.2-3.4); Absolute Monocyte Count 0.57 10^3/uL (0.1-0.8); Absolute Neutrophil Count 6.37 10^3/uL (1.2-6.7); Basophils % 0.5; Eosinophils % 2.1; HCT 36.5 % (36.0-46.0); HGB 12.6 g/dL (11.2-15.7); Immature Grans % 0.3; Lymphocytes % 38.9; MCH 30.7 pg (27.0-33.0); MCHC 34.5 % (32.0-36.0); MCV 89 fL (80-95); MPV 8.6 fL (8.0-11.0); Monocytes % 4.8; Neutrophils % 53.4; Platelet Count 276 10^3/uL (130-400); RDW 12.7 % (11.7-14.6); WBC 11.92 10^3/uL (4.4-10.8)
[2023-11-18 19:41] LABS: ALT 20 U/L (14-59); AST 15 U/L (15-37); Albumin 3.6 g/dL (3.4-5.0); Alkaline Phosphatase 101 U/L (46-116); Anion Gap 9.4 mmol/L (3-11); BUN 12 mg/dL (7-18); Bilirubin, Total 0.2 mg/dL (0.2-1.0); CO2 26.6 mmol/L (21.0-32.0); CREATININE 0.7 mg/dL (0.55-1.02); Calcium 8.8 mg/dL (8.5-10.1); Chloride 103 mmol/L (98-107); Glucose 96 mg/dL (74-106); Potassium 3.9 mmol/L (3.5-5.1); Sodium 139 mmol/L (136-145); Total Protein 6.7 g/dL (6.4-8.2)
== END 2023-11-18 17:45 | disposition home or self-care (01) ==
LOC: NCHCN 17:44
PROVIDERS: PCP Family Medicine; Visit Provider Family Medicine
DX: L28.2 Other prurigo (principal)
CPT/HCPCS: 80053; 85025

== ENCOUNTER 2023-12-08 21:47 | Emergency (ER) | payer MEDICAID, SELFPAY ==
[2023-12-08 21:53] VITALS: BP 137/90; PULSE 94; RESP 15; TEMP 36.6; O2SAT 100
[2023-12-08] MEDS: Lidocaine 4% Cream 5 GM TUBE TP (22:18)
--- NOTE | 2023-12-08 22:22 | ED.GENADUL_ITS ---
Discharge Plan Disposition Patient Disposition: Home Condition: Improving Discharge Details Chief Complaint: RashLesion Clinical Impression: Abscess or cellulitis of scalp Primary Care Provider: Jennifer Barrera ED Provider: Vaughn Greenberg Home Meds and New Rx's Prescriptions: No Action sertraline 100 mg tablet 100 mg PO DAILY hydroxyzine HCl 25 mg tablet 25 mg PO TID PRN (Reason: itching) Qty: 20 0RF Rx Instructions: Take for itching beware of drowsiness. pantoprazole 40 mg tablet,delayed release (DR/EC) 40 mg PO DAILY Qty: 30 3RF buprenorphine-naloxone [Suboxone] 2-0.5 mg film 6 mg Sublingual DAILY tacrolimus 0.1 % ointment 1 applic TOPICAL BID Patient Comments: APPLY ONE TOPICALLY TWICE A DAY TO FACE AND EYELIDS NEEDED MAY STING ON FIRST FEW APPLICATIONS ammonium lactate 12 % lotion 1 applic TOPICAL BID Patient Comments: APPLY TO AFFECTED AREA(S) (CRUSTED SKIN) TWO TIMES A DAY diphenhydramine HCl [Benadryl] 25 mg Capsule 25 mg PO Q4H PRN acetaminophen 500 mg tablet 500 mg PO Q6H PRN (Reason: pain) Qty: 60 1RF ibuprofen 600 mg tablet 600 mg PO TID PRN (Reason: pain) Qty: 60 1RF inulin 2.5 gram Tablet,Chewable PO Hold Instructions: Pt Stopped/Never Started Discharge Instructions Instructions: Abscess (ED) Additional Instructions: Continue your current oral antibiotic therapy as previously directed. Continue to wash the wound twice a day with warm soapy water. Recover the wound with a topical antibiotic ointment such as bacitracin or Neosporin after each washing. Apply warm compresses intermittently throughout the day to the area to improve the swelling and promote healing. Follow-up with your regular primary care doctor for recheck and further management if symptoms or not resolving with this care plan. Follow-up on the skin biopsy performed by dermatology for further treatment recommendations regarding your generalized dermatitis. You can always return to the ER for any new concerns or sudden changes in your health which you feel requires emergency medical attention. Discharge Data Discharge Physician: Vaughn Greenberg [facility] General Date/Time Provider Initiated Documentation: 12/08/23 21:57 . HPI Narrative: The patient is a 43-year-old female, with a relatively longstanding history of a chronic rash, recently seen by dermatology with a biopsy, and recently seen by urgent care and started on multiple antibiotics for a lesion behind the right ear, presents to the emergency department this evening complain of increased swelling, redness, and pressure in the lesion behind the right ear. The patient was told that if the symptoms seem to be getting worse to the area became larger, she should be reevaluated in the emergency room. The patient reportedly has been on antibiotics for only 24 hours. Although she is uncertain which antibiotics she is on specifically, she thinks it is Keflex and Bactrim. The patient denies having any fevers or chills. The patient states that her daugh ter told her that there was some drainage from the area behind her ear but she cannot see it and is unsure. Related Data Home Medications Medication Instructions Recorded Confirmed sertraline 100 mg tablet 100 mg PO DAILY 11/07/18 12/08/23 acetaminophen 500 mg tablet 500 mg PO Q6H PRN pain #60 tabs 02/13/19 12/08/23 diphenhydramine HCl 25 mg capsule 25 mg PO Q4H PRN 02/13/19 12/08/23 (Benadryl) ibuprofen 600 mg tablet 600 mg PO TID PRN pain #60 tabs 02/13/19 12/08/23 inulin 2.5 gram chewable tablet g PO 03/04/21 12/03/23 buprenorphine 2 mg-naloxone 0.5 mg 6 mg sublingual DAILY 03/17/21 12/08/23 sublingual film (Suboxone) pantoprazole 40 mg tablet,delayed 40 mg PO DAILY #30 tabs 03/17/21 12/08/23 release hydroxyzine HCl 25 mg tablet 25 mg PO TID PRN itching #20 tabs 12/03/23 12/08/23 ammonium lactate 12 % lotion 1 applic topical BID 12/08/23 12/08/23 tacrolimus 0.1 % topical ointment 1 applic topical BID 12/08/23 12/08/23 Previous Rx's Medication Instructions Recorded acetaminophen 500 mg tablet 500 mg PO Q6H PRN pain #60 tabs 02/13/19 ibuprofen 600 mg tablet 600 mg PO TID PRN pain #60 tabs 02/13/19 pantoprazole 40 mg tablet,delayed 40 mg PO DAILY #30 tabs 03/17/21 release hydroxyzine HCl 25 mg tablet 25 mg PO TID PRN itching #20 tabs 12/03/23 Allergies Allergy/AdvReac Type Severity Reaction Status Date / Time metronidazole [From Flagyl] Allergy Mild Unknown Unverified 12/08/23 21:57 Reaction General Stated Complaint: RashLesion HEMA: 3 Exam Skin Other: There is a 2 x 1.5 x 1 cm area of induration and soft tissue swelling overlying the mastoid process on the right side. Bedside ultrasound reveals a necrotic po cket within the area and some debris contained within it. There is 0.5 cm linear granulation tissue overlying the center of this area which could represent a sinus tract which is sealed over. Or diffusely, the patient has copious dry skin with excoriation changes on the visualized portions of her upper extremities and chest. Course Vital Signs Vital signs: Vital Signs Temperature 36.6 C 12/08/23 21:53 Pulse 94 H 12/08/23 21:53 Respiratory Rate 15 12/08/23 21:53 Blood Pressure 137/90 12/08/23 21:53 Pulse Oximetry 100 12/08/23 21:53 Temperature 36.6 C 12/08/23 21:53 Temperature Source Tympanic 12/08/23 21:53 Pulse 94 H 12/08/23 21:53 Respiratory Rate 15 12/08/23 21:53 Respiratory Effort Normal 12/08/23 21:56 Blood Pressure 137/90 12/08/23 21:53 Blood Pressure Position Sitting 12/08/23 21:53 Pulse Oximetry 100 12/08/23 21:53 Oxygen Delivery Method Room Air 12/08/23 21:53 Oxygen Flow Rate 0 12/08/23 21:53 Pain Level 4 12/08/23 21:53 Procedures Abscess I/D Site: Scalp Side (if applicable): Right Local Anesthetic: Other Anesthetic (LMX 4%) Technique: Incised with #11 Blade Amount of fluid expressed (mL): 1 Irrigation: Yes Packing used?: None Medical Decision Making The patient underwent a stab I&D of the lesion behind her ear which produced 1 cc of bloody pustular discharge which was collected and sent for culture. The patient will continue to be taking her combination of oral antibiotics of Keflex and Bactrim as a bridge to primary care follow-up for ongoing management as needed. I will explained wound care and warm compresses to the patient prior to discharge. Quality:SDOH Health Related Social Needs: No Data to Display PFSH All Active Problems (Updated 12/08/23 @ 23:46 by Vaughn Greenberg MD) Abscess or cellulitis of scalp (Acute) Eosinophilic esophagitis (Acute ~02/2021) Esophageal reflux (Chronic ~02/2021) Mild chronic gastritis (Acute ~02/2021) Hot flashes (Acute) Nausea (Acute) Constipation (Acute) Tobacco dependence (Acute) Edema of hand (Acute) Disorder of gallbladder (Acute) Right carpal tunnel syndrome (Chronic) Left carpal tunnel syndrome (Chronic) Anxiety (Chronic) Depression (Chronic) History of opioid abuse (Chronic) Enrolled in [employer] Takes suboxone Medical History (Updated 12/08/23 @ 23:46 by Vaughn Greenberg MD) Anxiety and depression Recurrent moderate major depressive disorder with anxiety Sleep disorder Carpal tunnel syndrome on both sides Substance abuse Fatigue Surgical History (Updated 03/26/21 @ 11:42 by Arielle Cain) History of esophagogastroduodenoscopy (EGD) (~02/2021) Hx of carpal tunnel repair R side Family History Brother Legg-Perthes disease Sister Cystic fibrosis Mother Hypertension Mother Heart disease Mother Diabetes Other Cancer FHx: mental illness Social History Smoking/Tobacco Use Status: Current every day Tobacco Type: cigarettes Smoking risk assessment performed?: Yes Alcohol Intake: former Drug use: Current Sobriety Substance use type: does not use Current gender identity: female Do you feel safe at home: Yes Do you feel safe in your relationship?: Yes
[2023-12-09] VITALS: BP 126/94; PULSE 69; RESP 14; TEMP 36.9; O2SAT 98
--- NOTE | 2023-12-10 11:13 | W.ED.FU ---
Date of service: 12/08/23 Follow Up Plan: Patient recently seen in the emergency department for an infection. Culture of that wound does reveal MRSA. I reviewed the medical record and called the pharmacy to confirm the antibiotics. Patient is on Keflex, Bactrim and mupirocin topically. The Bactrim should be sufficient coverage.
== END 2023-12-09 00:03 | disposition home or self-care (01) ==
PROVIDERS: Emergency Provider Emergency Medicine Emergency Medical Services; PCP Physician Assistant
DX: L02.811 Cutaneous abscess of head [any part, except face] (principal); L03.811 Cellulitis of head [any part, except face]; B95.62 Methicillin resistant Staphylococcus aureus infection as the cause of diseases classified elsewhere
CPT/HCPCS: 10060; 87077; 87070; 87186; 87205

== ENCOUNTER 2024-01-12 17:43 | Emergency (ER) | payer MEDICAID, SELFPAY ==
[2024-01-12 17:52] VITALS: BP 176/95; PULSE 116; RESP 18; TEMP 37.1; O2SAT 100
[2024-01-12 19:03] VITALS: RESP 18
--- NOTE | 2024-01-12 19:16 | ED.GENADUL_ITS ---
Discharge Plan Disposition Patient Disposition: Home Discharge Details Clinical Impression: Hair abnormality, Abnormal appearance of skin Primary Care Provider: Haroldo Burrell ED Provider: Amada Tenorio Home Meds and New Rx's Prescriptions: Continued sertraline 100 mg tablet 100 mg PO DAILY hydroxyzine HCl 25 mg tablet 25 mg PO TID PRN (Reason: itching) Qty: 20 0RF Rx Instructions: Take for itching beware of drowsiness. pantoprazole 40 mg tablet,delayed release (DR/EC) 40 mg PO DAILY Qty: 30 3RF buprenorphine-naloxone [Suboxone] 2-0.5 mg film 8 mg Sublingual DAILY tacrolimus 0.1 % ointment 1 applic TOPICAL BID Patient Comments: APPLY ONE TOPICALLY TWICE A DAY TO FACE AND EYELIDS NEEDED MAY STING ON FIRST FEW APPLICATIONS modafinil 200 mg tablet 200 mg PO DAILY Patient Comments: TAKE ONE TABLET BY MOUTH EVERY MORNING diphenhydramine HCl [Benadryl] 25 mg Capsule 25 mg PO Q4H PRN acetaminophen 500 mg tablet 500 mg PO Q6H PRN (Reason: pain) Qty: 60 1RF ibuprofen 600 mg tablet 600 mg PO TID PRN (Reason: pain) Qty: 60 1RF Discharge Instructions Additional Instructions: Your labs today were all reassuring. I recommend that you follow-up with LEONARDO Parks for further evaluation and management of your skin and hair changes. I recommend that you use gentle, unscented soaps and shampoo. Be sure not to pick at your skin or pull at your hair. Referrals: Haroldo Burrell [Primary Care Provider] - [facility] General Date/Time Provider Initiated Documentation: 01/12/24 17:56 . HPI Narrative: Brii is a 43-year-old female with history of anxiety and opioid dependence currently on Suboxone who presents to the emergency department for evaluation of concerning skin and hair changes. She reports that since July of this year she feels like her hair has been acting abnormally, and that it moves independently if she has been pulled out. She also reports she has noticed her skin color looks different and it feels slimy after getting out of the shower, soft in a way that is unusual for her. She reports that her hair on her head has been falling out in greater quantities, with new regrowth of a fine blond hair on her body and scalp. She has also had a widespread rash over her arms, face, and now legs. These are excoriated and have been evaluated by dermatology, unknown etiology. She says they were initially concerned about scabies or fungal infection, the treatment for these has not alleviated the symptoms. She says that nothing has changed significantly recently, but came to the emergency department because she is getting concerned about people asking her about it. She has had this extensively worked up by her PCP and dermatology, says that she called her PCP this week and he is going to try to get her in for an appointment soon. She denies recent fever/chills, pa lpitations, nausea/vomiting, new abdominal pains, change in bowel or bladder function, change in menstrual cycle from baseline. Related Data Home Medications Medication Instructions Recorded Confirmed sertraline 100 mg tablet 100 mg PO DAILY 11/07/18 01/12/24 acetaminophen 500 mg tablet 500 mg PO Q6H PRN pain #60 tabs 02/13/19 01/12/24 diphenhydramine HCl 25 mg capsule 25 mg PO Q4H PRN 02/13/19 01/12/24 (Benadryl) ibuprofen 600 mg tablet 600 mg PO TID PRN pain #60 tabs 02/13/19 01/12/24 buprenorphine 2 mg-naloxone 0.5 mg 8 mg sublingual DAILY 03/17/21 01/12/24 sublingual film (Suboxone) pantoprazole 40 mg tablet,delayed 40 mg PO DAILY #30 tabs 03/17/21 01/12/24 release hydroxyzine HCl 25 mg tablet 25 mg PO TID PRN itching #20 tabs 12/03/23 01/12/24 tacrolimus 0.1 % topical ointment 1 applic topical BID 12/08/23 01/12/24 modafinil 200 mg tablet 200 mg PO DAILY 01/12/24 01/12/24 Previous Rx's Medication Instructions Recorded acetaminophen 500 mg tablet 500 mg PO Q6H PRN pain #60 tabs 02/13/19 ibuprofen 600 mg tablet 600 mg PO TID PRN pain #60 tabs 02/13/19 pantoprazole 40 mg tablet,delayed 40 mg PO DAILY #30 tabs 03/17/21 release hydroxyzine HCl 25 mg tablet 25 mg PO TID PRN itching #20 tabs 12/03/23 Allergies Allergy/AdvReac Type Severity Reaction Status Date / Time metronidazole [From Flagyl] Allergy Mild Unknown Unverified 01/12/24 17:55 Reaction General Stated Complaint: GenMedical HEMA: 4 Review of Systems Narrative: see HPI Exam Const General: cooperative, healthy appearing, comfortable and anxious Nutritional Appearance: average body habitus Resp Effort & Inspection: normal respiratory effort and able to speak in complete sentences Auscultation: clear to auscultation bilaterally Cardio Rate: tachycardic Rhythm: regular rhythm GI Inspection: normal to inspection Palpation: soft, not firm, not rigid and nontender Skin Lesions: other (scattered excoriated lesions noted to bilateral upper extremities) Hair: general thinning (towards front hairline) Course Vital Signs Vital signs: Vital Signs Temperature 37.1 C 01/12/24 17:52 Pulse 116 H 01/12/24 17:52 Respiratory Rate 18 01/12/24 17:52 Blood Pressure 176/95 H 01/12/24 17:52 Pulse Oximetry 100 01/12/24 17:52 Temperature 37.1 C 01/12/24 17:52 Pulse 116 H 01/12/24 17:52 Respiratory Rate 18 01/12/24 19:03 Respiratory Effort Normal 01/12/24 19:03 Blood Pressure 176/95 H 01/12/24 17:52 Pulse Oximetry 100 01/12/24 17:52 Oxygen Delivery Method Room Air 01/12/24 17:52 Oxygen Flow Rate 0 01/12/24 17:52 Medical Decision Making Brii is a 43-year-old female with history of anxiety and opioid dependence currently on Suboxone who presents to the emergency department for evaluation of concerning skin and hair changes. She reports that since July of this year she feels like her hair has been acting abnormally, and that it moves independently if she has been pulled out. She also reports she has noticed her skin color looks different and it feels slimy after getting out of the shower, soft in a way that is unusual for her. She reports that her hair on her head has been falling out in greater quantities, with new regrowth of a fine blond hair on her body and scalp. She has also had a widespread rash over her arms, face, and now legs. These are excoriated and have been evaluated by dermatology, unknown etiology. She says they were initially concerned about scabies or fungal infection, the treatment for these has not alleviated the symptoms. She says that nothing has changed significantly recently, but came to the emergency department because she is getting concerned about people asking her about it. She has had this extensively worked up by her PCP and dermatology, says that she called her PCP this week and he is going to try to get her in for an appointment soon. She denies recent fever/chills, palpi tations, nausea/vomiting, new abdominal pains, change in bowel or bladder function, change in menstrual cycle from baseline. Physical exam very reassuring. Patient is alert and interactive, appears anxious while she is discussing her medical concerns. Multiple excoriated lesions noted on arms. No obvious jaundice or scleral icterus. Hair is fine, thin towards the hairline. Normal heart sounds, mild tachycardia noted. Easy work of breathing, lung sounds clear bilaterally. Abdomen is soft, nondistended, nontender to palpation. DDx includes but is not limited to: thyroid dysfunction, malnutrition, liver disease, vitamin deficiency, autoimmune disease, hormonal changes due to perimenopause, stress/anxiety. No concern for bacterial superinfection of skin wounds at this time. I independently interpreted the following tests: CBC, CMP, TSH all reassuring. Unclear etiology of skin and hair changes, no red flags indicate need for emergent diagnostic imaging or other lab work at this time. Recommend follow-up with PCP for further evaluation/management. Patient is agreeable with plan of care. Quality:SDOH Health Related Social Needs: No Data to Display PFSH All Active Problems (Updated 01/12/24 @ 20:49 by Amada Giordano) Abnormal appearance of skin (Acute) Hair abnormality (Acute) Eosinophilic esophagitis (Acute ~02/2021) Esophageal reflux (Chronic ~02/2021) Mild chronic gastritis (Acute ~02/2021) Hot flashes (Acute) Nausea (Acute) Constipation (Acute) Tobacco dependence (Acute) Edema of hand (Acute) Disorder of gallbladder (Acute) Right carpal tunnel syndrome (Chronic) Left carpal tunnel syndrome (Chronic) Anxiety (Chronic) Depression (Chronic) History of opioid abuse (Chronic) Enrolled in [employer] Takes suboxone Medical History (Updated 01/12/24 @ 20:49 by Amada Giordano) Anxiety and depression Recurrent moderate major depressive disorder with anxiety Sleep disorder Carpal tunnel syndrome on both sides Substance abuse Fatigue Surgical History (Updated 03/26/21 @ 11:42 by Arielle Cain) History of esophagogastroduodenoscopy (EGD) (~02/2021) Hx of carpal tunnel repair R side Family History Brother Legg-Perthes disease Sister Cystic fibrosis Mother Hypertension Mother Heart disease Mother Diabetes Other Cancer FHx: mental illness Social History Smoking/Tobacco Use Status: Current every day Tobacco Type: cigarettes Smoking risk assessment performed?: Yes Alcohol Intake: former Drug use: Current Sobriety Substance use type: does not use Current gender identity: female Do you feel safe at home: Yes Do you feel safe in your relationship?: Yes
[2024-01-12 20:10] LABS: HCT 38.5 % (36.0-46.0); HGB 13.5 g/dL (11.2-15.7); MCH 30.8 pg (27.0-33.0); MCHC 35.1 % (32.0-36.0); MCV 88 fL (80-95); MPV 8.3 fL (8.0-11.0); Platelet Count 277 10^3/uL (130-400); RBC 4.39 10^6/uL (3.93-5.22); RDW 12.6 % (11.7-14.6); RDW-SD 40.7 fL; WBC 10.33 10^3/uL (4.4-10.8)
[2024-01-12 20:30] LABS: ALT 20 U/L (14-59); AST 10 U/L (15-37); Albumin 3.8 g/dL (3.4-5.0); Alkaline Phosphatase 103 U/L (46-116); Anion Gap 9.3 mmol/L (3-11); BUN 10 mg/dL (7-18); Bilirubin, Total 0.3 mg/dL (0.2-1.0); CO2 26.7 mmol/L (21.0-32.0); CREATININE 0.8 mg/dL (0.55-1.02); Calcium 8.8 mg/dL (8.5-10.1); Chloride 102 mmol/L (98-107); Estimated GFR 93.12 (mL/min/1.73m2); Glucose 105 mg/dL (74-106); Potassium 3.4 mmol/L (3.5-5.1); Sodium 138 mmol/L (136-145); TSH (W/Ref FT4) 1.67 uIU/mL (0.36-3.74); Total Protein 7.2 g/dL (6.4-8.2)
--- NOTE | 2024-01-13 00:18 | NUR.NOTE ---
Pt placed on care management referral list for hair skin changes to be seen by PCP 1-2 WEEKS .
== END 2024-01-12 21:27 | disposition home or self-care (01) ==
PROVIDERS: Emergency Provider Nurse Practitioner Family; PCP Physician Assistant
DX: L98.9 Disorder of the skin and subcutaneous tissue, unspecified (principal); F41.9 Anxiety disorder, unspecified; F11.20 Opioid dependence, uncomplicated; L67.9 Hair color and hair shaft abnormality, unspecified; S40.812A Abrasion of left upper arm, initial encounter; S40.811A Abrasion of right upper arm, initial encounter; S00.81XA Abrasion of other part of head, initial encounter; S80.812A Abrasion, left lower leg, initial encounter; S80.811A Abrasion, right lower leg, initial encounter; X58.XXXA Exposure to other specified factors, initial encounter; F17.210 Nicotine dependence, cigarettes, uncomplicated
CPT/HCPCS: 80053; 85027; 99283; 84443

== ENCOUNTER 2024-06-03 11:01 | Emergency (ER) | payer MEDICAID, SELFPAY ==
--- OUTSIDE RECORDS SUMMARY | 2024-06-03 11:06 | XMS_ITS | Continuity of Care Document ---
Author Organization [facility] Address [address] [place] [id number] Care Team Providers Care Semi Automatic Sewing Machine Operator Name Role Phone VANDANA FARLEY RPA Primary Care Physician [phone] Encounter [facility] NBR [id number] Date(s): 02/04/24 - 02/04/[address] [id number] Encounter Diagnosis Chronic folliculitis(Discharge Diagnosis) - 02/04/24 Discharge Disposition: Home or Self Care Attending Physician: Sanford Purcell MD Admitting Physician: Sanford Purcell MD Allergies, Adverse Reactions, Alerts No Known Allergies Assessment and Plan Extracted from: Title:ED Provider Note Author:Long Jeff Date:02/04/24 1.??Chronic folliculitis??L7 3.9 Orders: Urine Culture, Urine, Stat collect, ST - Stat, 02/04/24 21:50:00 EDT, Once, Nurse collect, Collected, 02/04/24 21:50:00 EDT, Print Label, [id number] Patient does not appear to have cellulitis,??she is on doxycycline chronically.?? I suggest that she??try??dilute??bleach bath??(1 capful of bleach to bathtub??once a week, that she stop using oil of the leg, use Cetaphil or an antibacterial soap daily.?? We did check her urine because she had some??concern about that;??UA is equivocal, she has significant squames??a few white cells, trace??leuk.?? Okay for discharge with follow-up on urine culture, PMD regarding her chronic skin complaints. Diagnostic Tests Pending * Urine Culture 02/04/24 Medications busPIRone 0 Refill(s) Start Date: 02/04/24 Status: Ordered Clobetasol (Eqv-Temovate) 0.05% topical cream 0 Refill(s) Start Date: 09/08/23 Status: Ordered doxycycline 0 Refill(s) Start Date: 02/04/24 Status: Ordered Dupixent Pre-filled Pen 0 Refill(s) Start Date: 02/04/24 Status: Ordered modafinil 0 Refill(s) Start Date: 02/04/24 Status: Ordered permethrin 5% topical cream 0 Refill(s) Start Date: 09/08/23 Status: Ordered predniSONE 20 mg oral tablet 0 Refill(s) Start Date: 09/08/23 Status: Ordered sertraline 100 mg oral tablet 0 Refill(s) Start Date: 02/04/24 Status: Ordered Suboxone 8 mg-2 mg sublingual film 0 Refill(s) Start Date: 09/08/23 Status: Ordered triamcinolone 0.1% topical lotion 0 Refill(s) Start Date: 09/08/23 Status: Ordered Vraylar 0 Refill(s) Start Date: 02/04/24 Status: Ordered Mental Status 02/04/24 Eye Opening Response Mamie Spontaneous ly Best Verbal Response Mamie Oriented Best Motor Response [place] Obeys comman ds [place] Coma Score 15 Problem List Condition Confirmation Course Effective Dates Status Health St atus Informant Scabies Confirmed Active Results Laboratory List Name Date Test Urine Qual 02/04/24 Urinalysis Microscopic 02/04/24 Urinalysis with Micro if Indicated and C ulture if Indicated 02/04/24 Most recent to oldest [Reference Range]: 1 UA Color [Yellow] Yellow (02/04/24 9:50 PM) UA WBC [0-3] 4-6 *ABN* (02/04/24 9:50 PM) UA Urobilinogen [0.2] 0.2 (02/04/24 9:50 PM) UA Bili [Negative] Negative (02/04/24 9:50 PM) UA Ketones [Negative] Negative (02/04/24 9:50 PM) UA RBC [0-3] 0-3 (02/04/24 9:50 PM) UA Leuk Est [Negative] Negative (02/04/24 9:50 PM) UA Nitrite [Negative] Negative (02/04/24 9:50 PM) UA Glucose [Negative] Negative (02/04/24 9:50 PM) UA Bacteria [None Seen] 1+ *ABN* (02/04/24 9:50 PM) UA Protein [Negative] Negative (02/04/24 9:50 PM) UA Blood [Negative] Moderate *ABN* (02/04/24 9:50 PM) UA Spec Grav [1.001-1.030] 1.015 (02/04/24 9:50 PM) UA Squam Epithelial [0-3] 0-3 (02/04/24 9:50 PM) UA pH [5.00-9.00] 6.00 (02/04/24 9:50 PM) UA Appear [Clear] Clear (02/04/24 9:50 PM) UA [place] Yeast [None Seen] 0-3 *ABN* (02/04/24 9:50 PM) UA Culture Ind?. [No] Yes (02/04/24 9:50 PM) Urine Srce Clean Catch (02/04/24 9:50 PM) U hCG Ql [Negative] Negative (02/04/24 9:50 PM) Vital Signs Most recent to oldest [Reference Range]: 1 2 Temperature Temporal Artery [36-38 Deg C ] 36.6 Deg C (02/04/24 9:18 PM) Peripheral Pulse Rate [60-100 bpm] 100 b pm (02/04/24 9:35 PM) 111 bpm *HI* (02/04/24 9:18 PM) Respiratory Rate [12-24 br/min] 19 br/mi n (02/04/24 9:18 PM) Blood Pressure [90-140/60-90 mmHg] 170/1 08mmHg *HI* (02/04/24 9:18 PM) Mean Arterial Pressure, Cuff [65-140 mmH g] 129 mmHg (02/04/24 9:18 PM) Weight 64 kg (02/04/24 9:18 PM) Weight Dosing 64.000 kg (02/04/24 9:18 PM) Height 159 cm (02/04/24 9:18 PM) Body Mass Index 25.32 kg/m2 (02/04/24 9:18 PM) Social History Social History Type Response Tobacco Current everyday tob acco user Tobacco Use:. 20 per day. Sex Physician Emergency department Note * Sanford Purcell MD: PERFORM Event Display: ED Note Physician Authored Date: [id number] LYN GR :1980 Age:43 years Sex:Female Visit Date:02/04/2024 Primary Care Physician: VANDANA FARLEY RPA Basic Information Time Seen: Sanford Purcell MD / 02/04/2024 20:40 Chief Complaint Pt arrives with a variety of complaints. Chiefly, pt states she has scabs on arms and legs that appear frequently, open and get worse. Persistant for 7 months. Pt states she has urinary urgency and her urine has crystals. History Of Present Illness: 43-year-old with history of polysubstance abuse??presents with??months and months of chronic skin irritation,??scabs; she states she does not pick at her own skin but then??in detail??describes how she does.?? Primary care provider has her on a 1 month course of Doxy which she has taken for approximately 2 weeks.?? Patient also has multiple other concerns including her hair is shifting?by which she means??it moves??spontaneously; she also describes having blond hairs coming where they were not before,??having her??hairs curled around and reinserted into her skin.?? Patient??has used??oil of Olay forever;??she has never tried??an antibacterial soap,??nor Cetaphil. ??She has previously been on??Atarax??which did not help. Review of Systems: Review of Systems: Constitutional: [No fevers] Eye: [No acute visual complaints, no eye discharge] ENT: [No ear pain, nasal congestion, sore throat] Respiratory: [No shortness of breath, no cough] Cardiovascular: [No Chest pain] Gastrointestinal: [Mild chronic abdominal discomforts] Genitourinary: [No dysuria; no hematuria] Musculoskeletal: [No acute back pain, neck pain, joint pain,] Integumentary: [Chronic skin source??on limbs, not on mid back,??minimal on the face Neurologic: [No focal complaints.??No LOC] ?? Physical Exam: General: [Alert, well nourished, no acute distress].?Afebrile Eye: [PERRL, EOMI, normal conjunctiva]. HENT: [Normocephalic, normal hearing, moist oral mucosa, no scleral icterus, no nasal discharge].?No lesions seen about scalp but patient feels like her hairs are shifting Neck: [Ranging neck, normal inspection].?No adenopathy Lungs: [Clear, non-labored respiration, no tachypnea].?? Heart: [Normal rate, regular rhythm, no murmurs]. Abdomen: [Soft, non-tender, non-distended].?? Musculoskeletal: [Normal range of motion and strength, no tenderness or swelling]. Skin:??100s of small scabs, apparently about follicles,??some with slight erythema at the bases,??no vesicles,??no evident abscesses, no areas of cellulitis. Neurologic: [Awake, alert and oriented X4, normal tone, moving all extremities with good strength].[Ambulation intact]. Psychiatric: [Cooperative, appropriate mood and affect]. Physical Exam Vitals & Measurements T:??36.6?C ??(Temporal Artery)?? HR:??100??(Peripheral)?? RR:??19?? BP:??170/108?? SpO2:??100%?? HT:??159??cm?? WT:??64??kg?? BMI:??25.32?? Pain Score:??5?? O2 Therapy:??Room air?? Procedure No Qualifying Data Assessment/Plan 1.??Chronic folliculitis??L73.9 Orders: Urine Culture, Urine, Stat collect, ST - Stat, 02/04/24 21:50:00 EDT, Once, Nurse collect, Collected, 02/04/24 21:50:00 EDT, Print Label, [id number] Patient does not appear to have cellulitis,??she is on doxycycline chronically.?? I suggest that she??try??dilute??bleach bath??(1 capful of bleach to bathtub??once a week, that she stop using oil ofthe leg, use Cetaphil or an antibacterial soap daily.?? We did check her urine because she had some??concern about that;??UA is equivocal, she has significant squames??a few white cells, trace??leuk.?? Okay for discharge with follow-up on urine culture, PMD regarding her chronic skin complaints. Medication Reconciliation Unchanged buprenorphine-naloxone (Suboxone 8 mg-2 mg sublingual film) ?? busPIRone ?? cariprazine (Vraylar) ?? clobetasol topical (Clobetasol (Eqv-Temovate) 0.05% topical cream) ?? doxycycline ?? dupilumab (Dupixent Pre-filled Pen) ?? modafinil ?? permethrin topical (permethrin 5% topical cream) ?? predniSONE (predniSONE 20 mg oral tablet) ?? sertraline (sertraline 100 mg oral tablet) ?? triamcinolone topical (triamcinolone 0.1% topical lotion) Problem List/Past Medical History Ongoing Scabies Tobacco user Historical No qualifying data Allergies No Known Allergies Social History Alcohol Past Electronic Cigarette/Vaping Electronic Cigarette Use: Use, within last 90 days. Type: Nicotine infused. Substance Use Past, Heroin, Methamphetamines- Comments: suboxone Tobacco Current everyday tobacco user Tobacco Use:. 20 per day. Lab Results Testing?? LATEST RESULTS?? U hCG Ql?? 02/04/24 21:50?? Negative? UA Macroscopic?? LATEST RESULTS?? Urine Srce?? 02/04/24 21:50?? Clean Catch?? UA Color?? 02/04/24 21:50?? Yellow?? UA Appear?? 02/04/24 21:50?? Clear?? UA Glucose?? 02/04/24 21:50?? Negative?? UA Bili?? 02/04/24 21:50?? Negative?? UA Ketones?? 02/04/24 21:50?? Negative?? UA Spec Grav?? 02/04/24 21:50?? 1.015?? UA Blood?? 02/04/24 21:50?? Moderate Abnormal?? UA pH?? 02/04/24 21:50?? 6.00?? UA Protein?? 02/04/24 21:50?? Negative?? UA Urobilinogen?? 02/04/24 21:50?? 0.2?? UA Nitrite?? 02/04/24 21:50?? Negative?? UA Leuk Est?? 02/04/24 21:50?? Negative?? UA Culture Ind?.?? 02/04/24 21:50?? Yes? UA Microscopic?? LATEST RESULTS?? UA WBC?? 02/04/24 21:50?? 4-6 Abnormal?? UA RBC?? 02/04/24 21:50?? 0-3?? UA Squam Epithelial?? 02/04/24 21:50?? 0-3?? UA [place] Yeast?? 02/04/24 21:50?? 0-3 Abnormal?? UA Bacteria?? 02/04/24 21:50?? 1+ Abnormal? Electronically Signed on 02/04/2024 23:05 EDT Sanford Purcell MD Emergency department Discharge instructions * Sanford Purcell MD: PERFORM Event Display: ED Discharge Information Authored Date: [id number] LYN GR :1980 Age:43 years Sex:Female Visit Date:02/04/2024 Primary Care Physician: VANDANA FARLEY RPA Discharge Instructions We would like to thank you for allowing us to assist you with your healthcare needs. The following includes patient education materials and information regarding your injury/illness. Diagnosis from Today's Visit Chronic folliculitis Discharge Vitals Temperature??(Temporal Artery) 97.9 ??F (36.6 ??C) Heart Rate??(Peripheral) 100 Respiratory Rate?? 19 Blood Pressure?? 170/108?? SpO2?? 100% Height?? 62.60 in (159 cm) Weight?? 141.12 lb (64 kg) BMI?? 25.32 Allergies No Known Allergies What to Do Next Instructions from Your Care Team Continue course of doxycycline as directed by your primary care provider.?? I recommend you try different??soaps??to see if??you decrease??the skin breaks and scabs on your skin.?? I would first try??Cetaphil??(a hypoallergenic soap).?? If you want to use a moisturizer use Lubriderm.?? Stop using oil of Olay.?? I am unsure if you have a urinary tract infection; you had a few white cells in your urine but doxycycline (the medication you have been on for 2 weeks), covers most??urine infections.??We sent a urine culture and will??call you should the??urine culture suggest an infection that is not covered with??antibiotic you are already taking.?? Follow-up with your??primary care provider regarding your chronic??skin problems, hair problems??etc.?? Return to emergency if you develop high fevers,??signs of an abscess, or anything else acutely worsens. You were treated today on an emergency basis; it may be irizarry to contact your primary care provider to notify them of your visit today. You may have been referred to your regular doctor or a specialist, please follow up as instructed. If your condition worsens or you can't get in to see the doctor, contact the Emergency Department. Medications What When Instructions Next Dose Unchanged buprenorphine-naloxone (Suboxone 8 mg-2 mg sublingual film) Unchanged busPIRone Unchanged cariprazine (Vraylar) Unchanged clobetasol topical (Clobetasol (Eqv-Temovate) 0.05% topical cream) Unchanged doxycycline Unchanged dupilumab (Dupixent Pre-filled Pen) Unchanged modafinil Unchanged permethrin topical (permethrin 5% topical cream) Unchanged predniSONE (predniSONE 20 mg oral tablet) Unchanged sertraline (sertraline 100 mg oral tablet) Unchanged triamcinolone topical (triamcinolone 0.1% topical lotion) Tests Performed Lab Test Name Test Result Date/Time U hCG Ql Negative 02/04/2024 21:50 EDT Urine Srce Clean Catch 02/04/2024 21:50 EDT UA Color YELLOW. 02/04/2024 21:50 EDT UA Appear CLEAR. 02/04/2024 21:50 EDT UA Glucose NEGATIVE 02/04/2024 21:50 EDT UA Bili NEGATIVE 02/04/2024 21:50 EDT UA Ketones NEGATIVE 02/04/2024 21:50 EDT UA Spec Grav 1.015 02/04/2024 21:50 EDT UA Blood MODERATE Clinitek 02/04/2024 21:50 EDT UA pH 6.00 02/04/2024 21:50 EDT UA Protein NEGATIVE 02/04/2024 21:50 EDT UA Urobilinogen 0.2 02/04/2024 21:50 EDT UA Nitrite NEGATIVE 02/04/2024 21:50 EDT UA Leuk Est NEGATIVE 02/04/2024 21:50 EDT UA Culture Ind?. Yes 02/04/2024 21:50 EDT UA WBC 4-6 02/04/2024 21:50 EDT UA RBC 0-3 02/04/2024 21:50 EDT UA Squam Epithelial 0-3 02/04/2024 21:50 EDT UA [place] Yeast 0-3 02/04/2024 21:50 EDT UA Bacteria 1+ 02/04/2024 21:50 EDT Patient/Digital Media Intern Signature Patient Name:LYN GR I have received this information and my questions have been answered. Patient/Digital Media Intern Name: Patient/Digital Media Intern Signature: Relationship to Patient: Witness Name/Signature: Date: Electronically Signed on: 02/04/2024 22:13 EDTSigned by:VIOLETA Patient Care team information Care Team Personnel Name: VANDANA FARLEY RPA Position: No Access Member Role: Primary Care Physician Address: Address: [address] [place] [address]- Care Team Related Persons Name: NAHUM GR
--- OUTSIDE RECORDS SUMMARY | 2024-06-03 11:07 | XMS_ITS | Clinical Summary ---
Author Organization [facility] Address [address] [place] [address] Care Team Providers Care Puller Through Name Role Phone Haroldo Burrell Primary Care Provider [phone] Allergies Active Allergy Reactions Criticality Noted Date Comments Metronidazole Rash Low 03/04/2021 Medications Medication Sig Dispensed Refills Start Date End Date Status sertraline (ZOLOFT) 100 mg Tablet TAKE ONE TABLET BY MOUTH EVERY DAY 01/15/2021 Active Suboxone 8-[address] ONE FILM UNDER THE TONGUE EVERY MORNING FOR 14 DAYS 02/18/2021 Active pantoprazole EC (Protonix) 40 mg Tablet, Delayed Release (E.C.) 40 mg daily. 04/01/2021 Active diphenhydrAMINE (Benadryl) 25 mg Capsule Take by mouth. 02/13/2019 Active pantoprazole EC (Protonix) 40 mg Tablet, Delayed Release (E.C.) Take 1 tablet by mouth 2 times daily. 180 tablet 3 04/28/2021 Active Additional Information Patient not taking.Reported on 03/11/2022 naloxegoL (Movantik) 12.5 mg Tablet Take 12.5 mg by mouth daily. 90 tablet 1 04/28/2021 Active Additional Information Patient not taking.Reported on 03/11/2022 cetirizine (ZyrTEC) 10 mg Tablet Take 10 mg by mouth daily. 10/17/2021 Active hydrOXYzine (Atarax) 25 mg Tablet Take 25 mg by mouth as needed. 10/16/2021 Active modafiniL (PROVIGIL) 200 mg Tablet Take 200 mg by mouth every morning. 02/16/2022 Active triamcinolone (KENALOG) 0.1 % Lotion APPLY TO SKIN DIRECTED TWO TIMES A DAY NEEDED 10/19/2021 Active terbinafine (LamISIL) 250 mg Tablet Take 250 mg by mouth daily. 12/22/2021 Active dexlansoprazole (DEXILANT) 30 mg Cap, Delayed Rel., Multiphasic Take by mouth. 03/13/2021 Active triamcinolone (NASACORT or NASACORT OTC) 55 mcg Aerosol, SprayIndications:En vironmental and seasonal allergies 2 sprays by Nasal route daily. 1 each 12 03/11/2022 Active fexofenadine (JEFFERY) 180 mg TabletIndications:E nvironmental and seasonal allergies Take 1 tablet by mouth daily. 90 tablet 3 03/11/2022 Active Active Problems No known active problems Family History Medical History Relation Comments Allergic Rhinitis Daughter 1 Asthma Daughter 2 Relation Status Comments Daughter 1 Alive Daughter 2 Alive Social History Tobacco Use Types Packs/Day Years Used Date Smoking Tobacco: Every Day Cigarettes Smokeless Tobacco: Never Sex and Gender Information Value Date Recorded Sex Assigned at Not on file Gender Identity Not on file Sexual Orientation Not on file Last Filed Vital Signs Vital Sign Reading Time Taken Comments Blood Pressure 122/80 03/11/2022 1:57 PM EDT Pulse 91 03/11/2022 1:57 PM EDT Temperature - - Respiratory Rate - - Oxygen Saturation 100% 03/11/2022 1:57 PM EDT Inhaled Oxygen Concentration - - Weight 62 kg (136 lb 11.2 oz) 03/11/2022 1:57 PM EDT Height - - Body Mass Index - - Plan of Treatment Health Maintenance Due Date Last Done Comments CT Colonography 1979 Colonoscopy 1979 Colorectal Cancer Screening 1980 FIT DNA 1980 FIT 1980 Sigmoidoscopy (10 year) with FIT yearly 1980 Sigmoidoscopy 1980 Pneumococcal Vaccine: At-Risk 5-64yrs (1 of 2 - PCV) 0 1985 HIV screen 1997 Hepatitis C Screening 1997 Lipid Screening 1997 Hepatitis B vaccine (0-59 yrs) (1) 1998 Tetanus/Diphtheria/Pertussis Vaccines (1 - Tdap) 03/15 HPV test 2009 PAP Smear 2009 Breast Cancer Share Decision Needed 2019 Breast Cancer screening 2019 Covid-19 Vaccine ( season) 2024 Influenza (Flu) vaccine (1 o f 1 - Influenza standard series) 04/15/2024 Care Teams Puller Through Relationship Specialty Start Date End Date Haroldo Burrell PA [address] [place] [address] PCP - General Internal Medicine 11/01/23
--- OUTSIDE RECORDS SUMMARY | 2024-06-03 11:07 | XMS_ITS | Encounter Summary ---
Author Organization [facility] Address [address] [place] [address] Care Team Providers Care Machine Biller Name Role Phone Unknown, Provider Primary Care Provider Encounter Details Date Type Department Care Team (Latest Contact Info) Description 01/24/2024 Specialty Pharmacy [facility] [address] [place] [address] Jeffrey Carty RPH Initial Clinical Follow-up (by 6 weeks) for Dermatology, Refill Coordination Outreach for Dermatology Social History Tobacco Use Types Packs/Day Years Used Date Smoking Tobacco: Every Day Cigarettes 1 34.8 Started: 1989 Smokeless Tobacco: Never Comments:One pack daily Interpersonal Safety Answer Date Record ed Physically Hurt Never 03/16/2020 Verbally Threaten Not on file 03/16/2020 Sex and Gender Information Value Date Recorded Sex Assigned at Not on file Gender Identity Not on file Sexual Orientation Not on file documented as of this encounter Progress Notes * Yas Nicole - 01/24/2024 1416 EDT Specialty Pharmacy Documentation Medication: Dupixent Clinic: [facility] Reason for Encounter: outreach Notes: rts 01/27 Follow up date: 01/29 Follow up reason: refill documented in this encounter Plan of Treatment Not on file documented as of this encounter Visit Diagnoses Not on filedocumented in this encounter Care Teams Machine Biller Relationship Specialty Start Date End Date Unknown, Provider, PCP - General 06/24/15 documented as of this encounter
--- OUTSIDE RECORDS SUMMARY | 2024-06-03 11:07 | XMS_ITS | Encounter Summary ---
Author Organization [facility] Address [address] [place] [address] Care Team Providers Care Raised Printer Name Role Phone Unknown, Provider Primary Care Provider Encounter Details Date Type Department Care Team (Late st Contact Info) Description 10/23/2019 Lab Requisition [facility] Pathology & Laboratory Medicine - [facility] [address] [place] [address] Unknown, Provider, Social History Tobacco Use Types Packs/Day Years Used Date Smoking Tobacco: Never Assessed Sex and Gender Information Value Date Recorded Sex Assigned at Not on file Gender Identity Not on file Sexual Orientation Not on file documented as of this encounter Plan of Treatment Not on file documented as of this encounter Procedures Procedure Name Priority Date/Time Associated Diagnosis Comments HOLD SST Today 10/23/2019 14:35 EDT HEPATITIS C AB W REFLEX TO HCV RNA BY PCR Today 10/23/2019 14:35 EDT HEPATITIS A TOTAL ANTIBODY W REFLEX Today 10/23/2019 14:35 EDT HEPATITIS B SURFACE ANTIGEN Today 10/23/2019 14:35 EDT documented in this encounter Results * HOLD SST (10/23/2019 14:35 EDT) Hold Hold 10/23/2019 22:15 EDT [facility] Blood VENOUS BLOOD / Unknown 10/23/2019 14:35 EDT 10/23/2019 21:06 EDT Provider Unknown LAB INFO SERVICE AND SUPPORT & PHONE RESULT Performing Organization Address [facility] Co de Phone Number [facility] [address] [place] [address] * HEPATITIS B SURFACE ANTIGEN (10/23/2019 14:35 EDT) Hep B Surface Ag Negative Negative 10/24/2019 11:22 EDT [facility] Blood VENOUS BLOOD / Unknown 10/23/2019 14:35 EDT 10/23/2019 21:06 EDT Provider Unknown CHEMISTRY & BLOOD GA S ORDERABLES Performing Organization Address [facility] Co de Phone Number [facility] [address] [place] [address] * HEPATITIS C AB W REFLEX TO HCV RNA BY PCR (10/23/2019 14:35 EDT) Hep C Antibody Negative Negative 10/24/2019 12:13 EDT [facility] Blood VENOUS BLOOD / Unknown 10/23/2019 14:35 EDT 10/23/2019 21:06 EDT Provider Unknown CHEMISTRY & BLOOD GA S ORDERABLES Performing Organization Address [facility] Co de Phone Number [facility] [address] [place] [address] * HEPATITIS A TOTAL ANTIBODY W REFLEX (10/23/2019 14:35 EDT) Hepatitis A Antibody, Total Negative Negative 10/24/2019 12:13 EDT [facility] Blood VENOUS BLOOD / Unknown 10/23/2019 14:35 EDT 10/23/2019 21:06 EDT Narrative [facility] - 10/24/2019 12:13 EDT The result of this assay can be falsely elevated (Positive) due to the consumption of Biotin. Provider Unknown CHEMISTRY & BLOOD GA S ORDERABLES [facility] [address] [place] [address] documented in this encounter Visit Diagnoses Not on filedocumented in this encounter Additional Health Concerns Infection Onset Date Last Indicated Resolved Time COVID-19 06/01/2021 06/01/2021 06/21/2021 22:1 5 EST documented as of this encounter Care Teams Raised Printer Relationship Specialty Start Date End Date Unknown, Provider, PCP - General 06/24/15 documented as of this encounter
--- OUTSIDE RECORDS SUMMARY | 2024-06-03 11:07 | XMS_ITS | Encounter Summary ---
Author Organization [facility] Address [address] [place] [address] Care Team Providers Care Lath Hand Name Role Phone Unknown, Provider Primary Care Provider [phone] Reason for Visit * Reason Onset Date Comments Results 03/26/2024 Provider Referred 03/26/2024 Encounter Details Date Type Department Care Team (Late st Contact Info) Description 03/26/2024 Telephone [facility] Infectious Disease [address] [place] [id number] Adelaida Rose RN [address] [place] [address] [id number] Results; Provider Referred Social History Tobacco Use Types Packs/Day Years [...] on file documented as of this encounter Miscellaneous Notes * Telephone Encounter - Adelaida Rose RN - 03/26/2024 1052 EDT This is a Nuerology referral and brain MRI for her increased sensory complaints, headaches, and vision changes. Patient also had large amount of blood in urine and needs further workup. ----- Message from Sandy Agee MD sent at 03/26/2024 9:01 EDT ----- Can we let the patient know that we'll put in a referral and order the MRI? documented in this encounter Plan of Treatment Not on file documented as of this encounter Visit Diagnoses Not on filedocumented in this encounter Care Teams Lath Hand Relationship Specialty Start Date End Date Unknown, Provider, PCP - General 06/24/15 documented as of this encounter
--- OUTSIDE RECORDS SUMMARY | 2024-06-03 11:07 | XMS_ITS | Encounter Summary ---
Author Organization [facility] Address [address] [place] [address] Care Team Providers Care Hydraulic Hammer Operator Name Role Phone Unknown, Provider Primary Care Provider Encounter Details Date Type Department Care Team (Late st Contact Info) Description 07/03/2019 Lab Requisition [facility] - [address] [address] Unknown, Provider, Encounter for other general examination Social History Tobacco Use Types Packs/Day Years Used Date Smoking Tobacco: Never Assessed Sex and Gender Information Value Date Recorded Sex Assigned at Not on file Gender Identity Not on file Sexual Orientation Not on file documented as of this encounter Plan of Treatment Not on file documented as of this encounter Procedures Procedure Name Priority Date/Time Associated Diagnosis Comments HOLD SST Today 07/02/2019 15:30 EST Encounter for other general examination HOLD SST Today 07/02/2019 15:30 EST Encounter for other general examination HOLD SST Today 07/02/2019 15:30 EST Encounter for other general examination HEPATITIS C AB W REFLEX TO HCV RNA BY PCR Today 07/02/2019 15:30 EST HEPATITIS B CORE ANTIBODY (TOTAL) Today 07/02/2019 15:30 EST HEPATITIS B SURFACE ANTIBODY Today 07/02/2019 15:30 EST HEPATITIS B SURFACE ANTIGEN Today 07/02/2019 15:30 EST documented in this encounter Results * HOLD SST (07/02/2019 15:30 EST) Hold Hold 07/03/2019 17:01 EST [facility] Blood VENOUS BLOOD / Unknown 07/02/2019 15:30 EST 07/03/2019 15:58 EST Provider Unknown MD LAB INFO SERVICE AND SUPPORT & PHONE RESULT Performing Organization Address City/[facility]/ZIP Co de Phone Number [facility] [address] [place] [address] * HOLD SST (07/02/2019 15:30 EST) Hold Hold 07/03/2019 17:01 EST [facility] Blood VENOUS BLOOD / Unknown 07/02/2019 15:30 EST 07/03/2019 15:58 EST Provider Unknown MD LAB INFO SERVICE AND SUPPORT & PHONE RESULT Performing Organization Address [facility] [[email or web address]] Co de Phone Number [facility] [address] [place] [address] * HOLD SST (07/02/2019 15:30 EST) Hold Hold 07/03/2019 17:01 EST [facility] Blood VENOUS BLOOD / Unknown 07/02/2019 15:30 EST 07/03/2019 15:58 EST Provider Unknown MD LAB INFO SERVICE AND SUPPORT & PHONE RESULT Performing Organization Address [facility]/ZIP Co de Phone Number [facility] [address] [place] [address] * HEPATITIS B SURFACE ANTIBODY (07/02/2019 15:30 EST) Hep B Surface Ab, Qualitative Positive See Note 07/04/2019 11:15 EST [facility] Comment: Reference Range for Hep B Surface Ab, Qual: Unvaccinated: ??Negative Vaccinated: ??Positive Hep B Surface Ab, Quantitative 69.1 mIU/mL 07/04/2019 11:15 EST [facility] Comment: Reference Range for Hep B Surface Ab, Quant: Positive: >= 10.0 mIU/mL Negative: ??< 10.0 mIU/mL Patient is presumed to be immune to infection with Hepatitis B Virus. Blood VENOUS BLOOD / Unknown 07/02/2019 15:30 EST 07/03/2019 15:58 EST Provider Unknown CHEMISTRY & BLOOD GA S ORDERABLES Performing Organization Address [facility] [[email or web address]] Co de Phone Number [facility] [address] [place] [address] * HEPATITIS B CORE ANTIBODY (TOTAL) (07/02/2019 15:30 EST) Hepatitis B Core Ab, Total Negative Negative 07/04/2019 12:07 EST [facility] Blood VENOUS BLOOD / Unknown 07/02/2019 15:30 EST 07/03/2019 15:58 EST Provider Unknown CHEMISTRY & BLOOD GA S ORDERABLES Performing Organization Address [facility] de Phone Number [facility] [address] [place] [address] * HEPATITIS B SURFACE ANTIGEN (07/02/2019 15:30 EST) Hep B Surface Ag Negative Negative 07/04/2019 11:18 EST [facility] Blood VENOUS BLOOD / Unknown 07/02/2019 15:30 EST 07/03/2019 15:55 EST Provider Unknown CHEMISTRY & BLOOD GA S ORDERABLES Performing Organization Address [facility] [[email or web address]] Co de Phone Number [facility] [address] [place] [address] * HEPATITIS C AB W REFLEX TO HCV RNA BY PCR (07/02/2019 15:30 EST) Hep C Antibody Negative Negative 07/04/2019 11:32 EST [facility] Blood VENOUS BLOOD / Unknown 07/02/2019 15:30 EST 07/03/2019 15:55 EST Provider Unknown CHEMISTRY & BLOOD GA S ORDERABLES [facility] [address] [place] [address] documented in this encounter Visit Diagnoses Diagnosis Encounter for other general examination documented in this encounter Additional Health Concerns Infection Onset Date Last Indicated Resolved Time COVID-19 06/01/2021 06/01/2021 06/21/2021 22:1 5 EST documented as of this encounter Care Teams Hydraulic Hammer Operator Relationship Specialty Start Date End Date Unknown, Provider, PCP - General 06/24/15 documented as of this encounter
--- OUTSIDE RECORDS SUMMARY | 2024-06-03 11:07 | XMS_ITS | Encounter Summary ---
Author Organization [facility] Address [address] [place] [address] Care Team Providers Care Golf Course Starter Name Role Phone Unknown, Provider Primary Care Provider [phone] Encounter Details Date Type Department Care Team (Late st Contact Info) Description 10/14/2021 Lab Requisition [facility] - [facility] [address] [place] [address] Outr Resulting Lab, Provider Social History Tobacco Use Types Packs/Day Years Used Date Smoking Tobacco: Never Assessed Interpersonal Safety Answer Date Record ed Physically Hurt Never 03/16/2020 Verbally Threaten Not on file 03/16/2020 Sex and Gender Information Value Date Recorded Sex Assigned at Not on file Gender Identity Not on file Sexual Orientation Not on file documented as of this encounter Plan of Treatment Not on file documented as of this encounter Procedures Procedure Name Priority Date/Time Associated Diagnosis Comments IGG Routine 10/13/2021 16:45 EST documented in this encounter Results * IGG (10/13/2021 16:45 EST) IgG 1,024 610-1,616 mg/dL 10/15/2021 8:29 EST [facility] Blood VENOUS BLOOD / Unknown 10/13/2021 16:45 EST 10/14/2021 16:44 EST Provider Outr Resulting Lab CHEMISTRY & BLOOD GAS ORDERABLES [facility] [address] [place] [address] documented in this encounter Visit Diagnoses Not on filedocumented in this encounter Care Teams Golf Course Starter Relationship Specialty Start Date End Date Unknown, Provider, PCP - General 06/24/15 documented as of this encounter
--- OUTSIDE RECORDS SUMMARY | 2024-06-03 11:07 | XMS_ITS | Encounter Summary ---
Author Organization [facility] Address [address] [place] [address] Care Team Providers Care Dean Of Student Services Name Role Phone Unknown, Provider Primary Care Provider [phone] Reason for Visit * Reason Onset Date Comments Prior Auth, Medication 12/08/2023 Dupixent Encounter Details Date Type Department Care Team (Late st Contact Info) Description 12/08/2023 Telephone [facility] Dermatology [address] [id number] Andrew Sánchez MD [address] [facility], [address] [place] [phone] Prior Auth, Medication (Dupixent) Social History Tobacco Use Types Packs/Day Years [...] as of this encounter Progress Notes * Jeffrey Carty RPH - 12/08/2023 1223 EDT Specialty Pharmacy Consultation: [facility] Dermatology Clinic Medication Management: Prospective Medication Review Brii Domínguez (1980) Medication/Strength/Form: Dupixent 300 mg pens Dosing: inject 600 mg subcutaneous once on day 1, then 300 mg every 14 days thereafter Diagnosis: eczema (ICD10: L30.9) Provider: Andrew Sánchez MD Allergies Allergen Reactions Flagyl (As Hcl) Other - See Comments Environmental allergies Labs: None required for this therapy Immunizations: Annual flu vaccine Interactions/Therapy Overlap/Patient Evaluation: Attempted betamethasone, clobetasol and triamcinolone ointment Currently using tacrolimus, started 11/29/2023 Biosimilar/Generic Substitution: N/A This past medical history was reviewed in anticipation of a new therapy for Brii. Any interventions that are required before therapy initiation will be communicated to the patient. Jeffrey Carty, PharmD Ambulatory Pharmacist Clinician 12/08/2023 12:25 documented in this encounter Miscellaneous Notes * Telephone Encounter - Breanne Shah - 12/08/2023 1124 EDT Prior Authorization Submission Process - Routine New Medication: Dupixent [place] Insurance [place] Date [place] Request Received: 12/01/2023 [place] Submission Date: pending Faxed: [phone] Notes: Submitted by: Breanne Burch Phone: [phone] [facility] Downtime Documentation Medication Name: Dupixent Primary Payer:[place] Secondary Payer: Payer Affected: Primary Payer Eligibility Verification Date Completion: 12/08/2023 Eligibility Verification Result: Eligible PDL/Formulary Review Completed on: 12/08/2023 PDL/Formulary Review Result: Referral Entered:Yes documented in this encounter Plan of Treatment Not on file documented as of this encounter Visit Diagnoses Not on filedocumented in this encounter Care Teams Dean Of Student Services Relationship Specialty Start Date End Date Unknown, Provider, PCP - General 06/24/15 documented as of this encounter
--- OUTSIDE RECORDS SUMMARY | 2024-06-03 11:07 | XMS_ITS | Encounter Summary ---
Author Organization [facility] Address [address] [facility] [place] [address] Care Team Providers Care Certified Flight Instructor Name Role Phone Unknown Primary Care Provider Unavailabl e Reason for Referral * Consultation (Urgent) - Closed Specialty Diagnoses / Procedures Referred By Mt t Referred To Contact Dermatology Diagnoses Scabies CONCERN FOR CRUSTED SCABIES W/ RECURRENCE Sarah Esteves, DRUG REGULATORY AFFAIRS SPECIALIST [address] [place] [address] [facility] Dermatology [address] [place] [address] Referral ID Status Reason Start Date Expiration Date V isits Requested Visits Authorized [id number] Closed Consult, Test & Treat PCP Updated and/or Approved 10/18/2023 04/18/2024 6 6 Encounter Details Date Type Department Care Team (Late st Contact Info) Description 10/24/2023 Transcribe Orders eDH Incoming Referrals [phone] Sarah Esteves, DRUG REGULATORY AFFAIRS SPECIALIST [address] [place], [place] [phone] Scabies Social History Tobacco Use Types Packs/Day Years Used Date Smoking Tobacco: Every Day Cigarettes Smokeless Tobacco: Never Sex and Gender Information Value Date Recorded Sex Assigned at Not on file Gender Identity Not on file Sexual Orientation Not on file documented as of this encounter Plan of Treatment Scheduled Referrals Name Type Priority Associated Diagnoses Order Schedule Referral to Dermatology Outpatient Referral Urgent Scabies Ordered: 10/24/2023 documented as of this encounter Visit Diagnoses Diagnosis Scabies documented in this encounter Care Teams Certified Flight Instructor Relationship Specialty Start Date End Date Unknown None PCP - General 10/24/23 10/31/23 documented as of this encounter
--- OUTSIDE RECORDS SUMMARY | 2024-06-03 11:07 | XMS_ITS | Encounter Summary ---
Author Organization [facility] Address [address] [place] [address] Care Team Providers Care Slasher Name Role Phone Unknown, Provider Primary Care Provider Encounter Details Date Type Department Care Team (Latest Contact Info) Description 05/09/2024 Specialty Pharmacy [facility] [address] [place] [address] Jeffrey Carty RPH Started Clinical Follow-up (2x annually) for Dermatology, Started Refill Coordination Outreach for Dermatology Social History [...] on filedocumented in this encounter Care Teams Slasher Relationship Specialty Start Date End Date Unknown, Provider, PCP - General 06/24/15 documented as of this encounter
--- OUTSIDE RECORDS SUMMARY | 2024-06-03 11:07 | XMS_ITS | Encounter Summary ---
Author Organization [facility] Address [address] [place] [address] Care Team Providers Care Set Builder Name Role Phone Unknown, Provider Primary Care Provider [phone] Reason for Referral * Consult (Routine/Next Available) - Authorization Not Required Specialty Diagnoses / Procedures Referred By Mt amador Referred To Contact Pharmacy Diagnoses Prurigo nodularis Andrew Sánchez MD [address] [place] [address], [facility] [address] [place] [address] [facility] [address] [place] [id number] Referral ID Status Reason Start Date Expiration Date Visits Requested Visits Authorized [id number] Authorization Not Required Specialty Services Required 4 1 1 Question Answer PA Type: New Medication to be Prior Authorized: dupilumab for patient with prurigo nodularis and dermal hypersensitivity; also has history of eosinophilic esophagitis; has failed topical steroids Comments The purpose of this request is to inform precertification staff that the requested service needs to be reviewed for prior-authorization. Encounter Details Date Type Department Care Team ([facility] Contact Info) Description 12/01/2023 Orders Only [facility] Dermatology 5th Floor [facility] [address] [place] [address] Andrew Sánchez MD [address] [facility], [facility], [address] [place] [phone] Prurigo nodularis (Primary Dx) Social History Tobacco Use Types Packs/Day Years [...] as of this encounter Progress Notes * Andrew Sánchez MD - 12/01/2023 1052 EDT Called and relayed results to patient which were consistent with a dermal hypersensitivity reactionand prurigo nodularis. Recommend that she have her house evaluated by an supervisor dimension warehouse just to rule out pest infestation. Given persistent of symptoms despite topicals, recommend starting dupilumab for dermal hypersensitivity and prurigo nodularis (patient also has a history of eosinophilic esophagitis). Prior auth submitted. Please schedule follow up with me in 4 months. Thanks, Andrew Sánchez MD documented in this encounter Plan of Treatment Scheduled Referrals Name Type Priority Associated Diagnoses Order Schedule AMB CONS/FOLLOW UP SPECIALTY PHARMACY Outpatient Referral Routine/Next Available Prurigo nodularis Expected: 12/08/2023 (Approximate), Expires: 11/30/2024 documented as of this encounter Visit Diagnoses Diagnosis Prurigo nodularis- Primary Lichenification and lichen simplex chronicus documented in this encounter Care Teams Set Builder Relationship Specialty Start Date End Date Unknown, Provider, PCP - General 06/24/15 documented as of this encounter
--- OUTSIDE RECORDS SUMMARY | 2024-06-03 11:07 | XMS_ITS | Encounter Summary ---
[facility] [place] [address] Care Team Providers Care Commercial Leasing Manager Name Role Phone Haroldo Burrell Primary Care Provider [phone] Reason for Visit * Consultation (Routine) - Closed Specialty Diagnoses / Procedures Referred By Contac t Referred To Contact Allergy Diagnoses NEW DX EOSINOPHILIC ESOPHAGITIS Sebastián Flores MD [address] [place] [address] [facility] [address] [place] [id number] Referral ID Status Reason Start Date Expiration Date V isits Requested Visits Authorized [id number] Closed Consult, [facility] PCP Updated and/or Approved 03/16/2021 07/16/2023 6 6 Encounter Details Date Type Department Care Team (Latest Contact Info) Description 03/11/2022 1:30 PM EDT [place] [address] Monica Lindsey MD [facility] [place] [address] Environmental and seasonal allergies Social History Tobacco Use Types Packs/Day Years Used Date Smoking Tobacco: Every Day Cigarettes Smokeless Tobacco: Never Sex and Gender Information Value Date Recorded Sex Assigned at Not on file Gender Identity Not on file Sexual Orientation Not on file documented as of this encounter Last Filed Vital Signs Vital Sign Reading Time Taken Comments Blood Pressure 122/80 03/11/2022 1:57 PM EDT Pulse 91 03/11/2022 1:57 PM EDT Temperature - - Respiratory Rate - - Oxygen Saturation 100% 03/11/2022 1:57 PM EDT Inhaled Oxygen Concentration - - Weight 62 kg (136 lb 11.2 oz) 03/11/2022 1:57 PM EDT Height - - Body Mass Index - - documented in this encounter Patient Instructions * Patient Instructions* Monica Lindsey MD - 03/11/2022 1:30 PM EDT Start Nasacort/triamincolone 2 sprays per nostril daily Change cetirizine to fexofenadine Skin test positive to dust mites, cat, dog, tree/grass/weed pollens ALLERGY SEASONS & AVOIDANCE: Dust mites: Year-round, especially Fall 1. Dust mite encasings, pillow and mattress (Conexus-IT) 2. Wash bedding (linens, not dust mite cases) in hot water (no hotter than 120 F) 3. Humidity control, 30-50% 4. Minimize carpet and stuffed animal exposure Animals: Year-round 1. Minimize animal allergen exposure 2. Removal or -- regular baths/wiping of animal once per week -- exclusion from the bedroom -- HEPA filter in bedroom and living area -- Consider allergen pillow and mattress casings. Pollens: Grass: Late Spring to Summer; Trees: Early Spring; Weeds: Mid Summer; Ragweed: Late Summer: [place] Mold: Late Summer to Fall 1. Nightly hair washing during pollen seasons 2. Keep windows closed, consider window a/c unit with filter (clean/maintain well, avoid/monitor for/prevent mold contamination) 3. Do not place fans in windows 4. Do not dry clothes outside. documented in this encounter Progress Notes * Adriana Gama RN - 03/11/2022 1:30 PM EDT Patient in clinic for skin testing. Prior to skin test assessment lungs clear to ausculation, HR WNL, no rash, hives noted. Patient / patient's family denies use of antihistamine in the last week. Patient states they are feeling good, breathing good. * Monica Lindsey MD - 03/11/2022 1:30 PM EDT Images from the original note were not included. [facility] Section of Allergy and Clinical Immunology Date of Service: 03/11/22 Primary Care Provider: LEONARDO Parks Patient Age: 41 y.o. 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 She has been taking pantaprazole 40 mg twice a day. She has found hydroxyzine sedating. She is itchy all the time. She showed me a picture taken March 04 on palms bumps and redness. She reports dysphagia to solids and globus sensation for approximately. Food bolus will eventually go down. She reports hiccups and sneezing fits. Tries to avoid fragrance. If wash dogs, I knoew skin is bad after that, itchy, touching own dog, irritated. Dog sometimes sleep in bed. Daughter has cats, but she doesn't spend much time there. Outpatient Medications Marked as Taking for the 03/11/22 encounter (Office Visit) with Monica Lindsey MD Medication Sig Dispense Refill ??? triamcinolone (KENALOG) 0.1 % Lotion APPLY TO SKIN DIRECTED TWO TIMES A DAY NEEDED ??? terbinafine (LamISIL) 250 mg Tablet Take 250 mg by mouth daily. ??? dexlansoprazole (DEXILANT) 30 mg Cap, Delayed Rel., Multiphasic Take by mouth. ??? Suboxone 8-[address] ONE FILM UNDER THE TONGUE EVERY MORNING FOR 14 DAYS Allergies Allergen Reactions ??? Metronidazole Rash Family hIstory: oldest daughter with environmental allergies Youngest daughter has asthma Social History Tobacco Use ??? Smoking status: Current Every Day Smoker Types: Cigarettes ??? Smokeless tobacco: Never Used Vaping Use ??? Vaping Use: Never used Status: Single. Review of Systems: General: denies any fever, fatigue, chills, unintentional weight gain, night sweats. Eyes: denies any itchy, red eyes. Denies any ocular discharge, blurriness, dryness. Ears: denies any pain, pressure, fullness, pruritus, tinnitus Nose: denies nasal congestion, post nasal drip, sneezing, snoring. Denies a history of nasal polyps, loss of smell Mouth/throat: denies loss of taste, mouth sores, bad breath, itchy mouth, itchy throat, +difficultyswallowing. GI: +reflux, food regurgitation, nausea/vomiting, diarrhea, abdominal pain, constipation. Respiratory: denies any cough, wheezing, +shortness of breath, trouble with exercise, snoring, hemoptysis. Cardiovascular: denies any chest pain, arrhythmia. : denies any difficulty with urination, dysuria, hematuria, kidney stones. Skin: +eczema, hives and angioedema MSK: denies any muscle aches, joint pains, bone pain. Neurologic: +headaches, +numbness, weakness, stroke or LOS. Psychiatric: +anxiety +depression. Endocrine: Denies any heat or cold intolerance, excessive thirst or urination. Hematologic: denies easy bruising Environmental History: Pets in the home: dogs (2). Climate Control: forced hot air heat She rents Bedroom has carpet Objective: BP 122/80 Pulse 91 Wt 62 kg (136 lb 11.2 oz) SpO2 100% PHQ-9 QUESTIONNAIRE SCORE ONLY (AMB) 04/28/2021 PHQ - 9 Score (Patient) 9 (Mild Depression) Wt Readings from Last 3 Encounters: 03/11/22 62 kg (136 lb 11.2 oz) 01/20/22 63.1 kg (139 lb 1.6 oz) Gen: awake, alert, no acute distress Head: normocephalic, atraumatic EYES: Conjunctiva not injected or icteric. No discharge. No eyelid edema. ENT: left serous effusions, no lesions, erythema, or drainage. Normal external ear canals. Nasal passages show normal mucosa, edematous turbinates bilaterally, no lesions. OP mucosa well hydrated, clear without erythema. No lesions or exudates. No visible OP edema. NECK: supple, symmetric, no masses, trachea midline LYMPH: no submandibular, cervical, or supraclavicular LAD CVS: RRR LUNGS: CTAB, no wheezing or crackles, breathing unlabored ABD: non-distended, bowel sounds present SKIN: no rashes, normal color, no mottling EXTREMITIES: warm and well-perfused, normal bulk, symmetric ROM. NEURO: EOMI, no dysarthria PSYCH: normal grooming, appropriate mood and affect, normal volume/quantity/tone of speech, normal thought process and content Review of Medical Records: I reviewed [facility] and [facility] records 03/04/2021 A. STOMACH, ANTRUM, ULCER, BIOPSY: - Gastric antral mucosa with reactive (chemical) gastropathy ?? B. GASTROESOPHAGEAL JUNCTION, BIOPSY: - Esophagitis with eosinophils (maximum eosinophil count >50 / high power field) - Squamocolumnar junctional mucosa negative for intestinal metaplasia. Negative for dysplasia. ?? C. ESOPHAGUS, POLYP, BIOPSY: - Squamous mucosa with mild reactive changes - Deeper sections have been examined Skin prick testing: After informed consent was obtained, the patient had skin testing to aeroallergens, starting with prick testing. There was a positive wheal and flare reaction with a 6 mm wheal and a 35 mm flare to the histamine positive control and no response to the diluent negative control, indicating this is a good and interpretable test. Skin test positive to cat, dog, tree pollen (ncluding magdy, sycamore), grass pollen, weed pollen (including mugwort, ragweed) Skin test negative to molds, dust mites, cockroach, mouse and mixed feathers. Please see scanned document for full details on sizes of wheals and flares if not indicated above. 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 For eosinophilic esophagitis, she is currently taking pantoprazole 40 mg twice daily. As she continues to have dysphagia symptoms, I agree with Cierra Harrington's recommendation for increasing PPI andrepeat upper endoscopy. For environmental allergies, we reviewed allergen avoidance, keeping pets out of the bedroom and using a HEPA filter in the bedroom, showering and washing the hair before bed, keeping windows closed,and avoiding drying laundry outdoors during pollen seasons. I recommend Nasacort 2 sprays per nostril daily, script sent. She may also continue to use fexofenadine, she has been buying OTC, script sent. All questions were answered, and patient expressed understanding of the plan. Thank you for the opportunity to participate in the care of your patient. Ongoing follow-up with the patient's primary care physician is recommended and encouraged. If I can provide any further assistance, please do not hesitate to contact me. Next visit (studies planned): follow-up visit in 6 months Monica Torres MD Sueding Machine Operator, Allergy and Clinical Immunology [place] [phone] [email or web address] documented in this encounter Plan of Treatment Not on file documented as of this encounter Procedures Procedure Name Priority Date/Time Associated Diagnosis Comments ALLERGY SCAN 03/11/2022 12:00 AM EDT documented in this encounter Results * SCAN DOC: ALLERGY (03/11/2022 12:00 AM EDT) Narrative 03/11/2022 12:00 AM EDT Ordered by an unspecified provider. Scanning Provider MEDIA MGR SCAN EXT O RDR/RSLT documented in this encounter Visit Diagnoses Diagnosis Environmental and seasonal allergies documented in this encounter Care Teams Commercial Leasing Manager Relationship Specialty Start Date End Date Haroldo Burrell PA [address] [place] [address] PCP - General Internal Medicine 01/20/22 10/23/23 documented as of this encounter
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
--- OUTSIDE RECORDS SUMMARY | 2024-06-03 11:07 | XMS_ITS | Encounter Summary ---
Author Organization [facility] Address [address] [place] [address] Care Team Providers Care Phosphoric Acid Supervisor Name Role Phone Unknown, Provider Primary Care Provider [phone] Encounter Details Date Type Department Care Team (Late st Contact Info) Description 03/27/2024 Orders Only [facility] [address] [place] [address] CouMary dent Social History Tobacco Use Types Packs/Day Years [...] on filedocumented in this encounter Care Teams Phosphoric Acid Supervisor Relationship Specialty Start Date End Date Unknown, Provider, PCP - General 06/24/15 documented as of this encounter
--- OUTSIDE RECORDS SUMMARY | 2024-06-03 11:07 | XMS_ITS | Encounter Summary ---
Author Organization [facility] Address [address] [place] [address] Care Team Providers Care Forge Utility Worker Name Role Phone Unknown, Provider Primary Care Provider [phone] Reason for Visit * Reason Comments New Patient Visit Patient states that skin issues began in JulyDiagnosed with scabies and then crusted scabies Feels like skin is crawling, constantly wiping away Has used ivermectinSpread to other people and petsAffected people also here in waiting room if neededPatient states that it is hard to see, tiny lint-likeHas caused MRSA, taken doxycycline * Consult (Routine) - Authorization Not Required Specialty Diagnoses / Procedures Referred By [facility] Referred To Contact Dermatology Diagnoses Dermatitis, unspecified Haroldo Burrell, [facility] [address] [address] [facility] Dermatology [address] [place] [id number] Referral ID Status Reason Start Date Expiration Date Visits Requested Visits Authorized [id number] Authorization Not Required 1 1 Encounter Details Date Type Department Care Team (Late st Contact Info) Description 11/29/2023 9:00 EDT Office Visit [facility] Dermatology 5th Floor [address] [id number] Andrew Sánchze MD [address] [facility], [address] [place] [id number] Rash (Primary Dx); Facial eczema; Eczema of eyelid, unspecified laterality; Sensation of skin crawling Social History Tobacco Use Types Packs/Day Years [...] on file documented as of this encounter Patient Instructions * Patient Instructions* Nivia Haque MD - 11/29/2023 9:00 EDT WOUND CARE INSTRUCTIONS FOR SHAVE/PUNCH SKIN BIOPSY The DRESSING/BAND-AID should remain in place for 24 hours. You may shower or bathe after 24 hours; remove the bandage and replace it after the shower. Continue to keep the biopsy site covered with Vaseline and a Band-Aid/bandage for 1 week after the biopsy and change daily. WOUND CARE: Wash hands with soap and water before changing the dressing. Clean the wound daily with mild soap and water. You may gently loosen any crusts with a cotton swab. The wound may be slightly tender and may bleed a small amount. A small amount of discharge is normal. Apply a thin layer of sterile petroleum jelly over the wound. Cover the wound with a Telfa (non-stick) dressing or bandage. It is important to keep the wound covered. Change the dressing daily and when it becomes wet. Do not clean your open wound with hydrogen peroxide or apply an antibiotic ointment unless prescribed by your provider. Using these can be more harmful and damaging to the healing skin. Many people are allergic to the topical antibiotics over the counter and this results in a rash occurring around the biopsy site. DISCOMFORT: Expect some discomfort. Tylenol, taken as directed by the photo intern, will help relieve pain. If Tylenol does not provide sufficient relief, you may also take Ibuprofen alternating every four hours with the Tylenol. If the pain is severe and not relieved by the above measures, please c all the office. BLEEDING: You may notice some blood on the edges of the dressing the first day and this is normal. If the bleeding soaks through the dressing, remove the dressing, and apply firm, steady pressure with a moist clean wash cloth for twenty minutes. If the bleeding stops, redress the wound, if not, call our office at . ACTIVITY: You may resume normal activity in 1 day unless instructed otherwise. LEG BIOPSIES: If your biopsy was on the leg, expect the healing process to take weeks-months. You will need to keep it covered for at least 2 weeks. It is normal and expected that leg wounds/biopsies take what seems like forever to heal. Healing can also take longer in patients who have swollen legs or peripheral vascular disease. Make sure the biopsy site is the last area you wash in the shower (or re wash it when you get out) to ensure that bacteria from your body does not run into your wound and result inan infection. If you had stitches placed (usually after having a punch biopsy) you will need to have these removed by our nursing staff, in 7 days, unless otherwise instructed. CONTACT THE OFFICE or IF YOU EXPERIENCE: increased redness warmth to touch increased pain drainage with a foul odor rapid swelling of the wound fever or chills To our patients in dermatology: The recently passed Cures Act requires that all lab and biopsy results are available to you online when they are processed (the same time they are released to your provider). If you choose to look at your results in The car easily beat prior to our office contacting you, that is your right and choice. Our office policy is to have your provider or the provider???s assistant grocery contact you with your results and any treatment plan, in a timely manner. In some cases, biopsy and/or lab results can be upsetting, and we prefer to give you the results ourselves once we have reviewed them and have formulated a plan. If you opt to read your results online before we are able to contact you, please do not call the office or send a The car easily beat message asking to discuss them. Providers are seeing patients during the day and cannot answer calls during clinic time or off hours/weekends. Unless it is an emergency, the research environmental engineer provider will not review biopsy and/ or lab results. Thank you for entrusting us with your care. [facility]- Dermatology documented in this encounter Ordered Prescriptions Prescription Sig Dispensed Refills Start Date End Da te TACRolimus (PROTOPIC) 0.1 % ointmentIndications:Facia l eczema,Eczema of eyelid, unspecified laterality Apply topically to rash on face and eyelids twice daily as needed. May sting on first few applications. 100 g 5 11/29/2023 documented in this encounter Progress Notes * Nivia Haque MD - 11/29/2023 0900 EDT Dermatology Outpatient Visit Note Chief Complaint Patient presents with New Patient Visit Patient states that skin issues began in July Diagnosed with scabies and then crusted scabies Feels like skin is crawling, constantly wiping away Has used ivermectin Spread to other people and pets Affected people also here in waiting room if needed Patient states that it is hard to see, tiny lint-like Has caused MRSA, taken doxycycline Dermatologic History: No specialty comments available. SUBJECTIVE: Brii Domínguez is a 43 y.o. female who presents for rash. Has been feeling things moving under the skin with itching since July. Also reports crust build up mainly since July. 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 8 week old grandson and older grandsons also reportedly have rashes. People who visit her home also end up having rashes. Her dogs are also dealing with rashes, treated for scabies, which has not been helping.Has not had her home evaluated by an table inspector. Has used triamcinolone, hydroxyzine, which have not helped a lot. Symptoms worse at night. Also having lots of itching on the face which is newer. Uses an Olay Body wash as face wash. Denies any changes in medications, has been on suboxone for 8-9 years. Denies any cocaine, alcohol, stimulant use. Notes lint like substance in between toes, but reports it is not lint. Also reports pulling black things off her skin. She magnifies the substance with a [employer] shaheen. Is very bothered by the issue. Feels that something is wrong and is frustrated that she does not have a diagnosis yet. OBJECTIVE: A focused exam of the face, arms, trunk, feet, back was performed. - excoriated scaly papules on the forearms, lesion on the right forearm was biopsied today - one excoriated papule on left forehead and left upper back - eyelids and face with erythematous xerotic patches - remnants of black sock lint and debris on interdigital web spaces ASSESSMENT & PLAN: Rash Sensation of skin crawling Since July, sensation of crawling >itching under the skin with eroded and excoriated papuleson arms which has not responded to management of scabies, topical steroids, topical doxepin. Discussed that there is no evidence of scabies today. We offered a biopsy to ddx between prurigo nodularis, vs eczema, vs contact dermatitis, vs drug hypersensitivity vs other. We would be able to see if there is an infectious process as well. - ddx and need for tissue diagnosis discussed - may consider dupilumab if prurigo nodularis - discussed that there are oral medications that patient has not tried and can help with itching aswell as sensation of crawling (gabapentin, pimozide etc) - DERMATOLOGY SURGICAL PATHOLOGY Facial eczema Eczema of eyelid, unspecified laterality - advised to avoid betamethasone, clobetasol and triamcinolone on face as those can lead to atrophy - start TACRolimus (PROTOPIC) 0.1 % ointment; Apply topically to rash on face and eyelids twice daily as needed. May sting on first few applications. Dispense: 100 g; Refill: 5 - recommend using a bland emollient and face wash such as Cerave or Cetaphil PROCEDURE: PUNCH BIOPSY PATIENT: Brii Domínguez : MRN: [id number] SURGEON: Nivia Haque MD; Andrew Sánchez MD Informed consent was obtained in writing. PROCEDURE: Punch biopsy INDICATION: Diagnostic biopsy PREP: Alcohol ANESTHESIA: 1% lidocaine with epinephrine 1:100,000 local infiltration PERFORMED BY: The resident performed the procedure. Specimen Procedure: punch biopsy 4 mm, 4.0 prolene Location: right forearm Description: excoriated papules on arms ddx parasitic infestation vs drug hypersensitivity vs prurigo nodularis The lesions were prepped and anesthetized with local anesthesia. The specimens were removed with a 4.0 mm punch trephine. Hemostasis was achieved with pressure. The wounds were closed with 4.0 Prolene (polypropylene) suture. A sterile dressing was applied over petrolatum ointment. Wound care instructions were provided. The specimens were submitted to pathology for histological evaluation. Patientwas advised to have sutures removed in 10 days at primary care visit per her preference. FOLLOW UP: Return if symptoms worsen or fail to improve, for pending bx results. Nivia Haque MD Attestation Statement: I saw and examined the patient with the resident/fellow. I agree with the findings and plan of care documented in the resident's/fellow's note. I was present during the oneil andcritical portions of the procedure and agree with the resident's/fellow note. Andrew Sánchez MD 11/29/2023 12:32 documented in this encounter Miscellaneous Notes * Result Encounter Note - Andrew Sánchez MD - 11/29/2023 0900 EDT Called and relayed results to patient which were consistent with a dermal hypersensitivity reactionand prurigo nodularis. Recommend that she have her house evaluated by an table inspector just to rule out pest infestation. Given [...] Procedure Name Priority Date/Time Associated Diagnosis Comments DERMATOLOGY SURGICAL PATHOLOGY Routine 11/29/2023 9:54 EDT Rash documented in this encounter Results * DERMATOLOGY SURGICAL PATHOLOGY (11/29/2023 9:54 EDT) Note to Patient The following pathology results have been interpreted by your pathologist and may be available to you before your health provider has had the opportunity to review them. Please allow time for your provider to receive these results and explore management options, if applicable. 11/30/2023 18:29 [facility] Final Diagnosis A. SKIN OF FOREARM, RIGHT, PUNCH BIOPSY: - Superficial and deep perivascular and interstitial dermatitis with eosinophils. See microscopic and comment. 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 A drug-related eruption or an arthropod assault reaction would be diagnostic considerations. Despite multiple levels, scabies organisms are not identified. 11/30/2023 18:29 [facility] Attestation By the signature below, the attending physician certifies that they have 1) personally conducted a gross and/or microscopic examination of the described specimen(s), and/or personally interpreted the results of laboratory testing of the described specimen(s), and 2) personally rendered or confirmed the above diagnosis. 11/30/2023 18:29 [facility] at 1829 Microscopic Description Sections consist of a punch biopsy of skin. There is parakeratosis and serum crust overlying an epidermis which shows irregular hyperplasia. Within the dermis is mild fibrosis and mixed with superficial and deep perivascular and interstitial mixed inflammation which includes lymphomononuclear cells and eosinophils. Multiple levels have been reviewed. 11/30/2023 18:29 [facility] Clinical History Excoriated papules on arms; DDx parasitic infestation vs drug hypersensitivity vs prurigo nodularis; clinical diagnosis code: R21 11/30/2023 18:29 [facility] Gross Description A. Received in formalin labelled with proper patient identification (initials S, S) and right forearm is a 0.3 cm whitten circular skin excised to a depth of 0.5 cm which is inked and entirely submitted in A1. LEONARDO HESTER(ASCP) 11/29/2023 13:34 11/30/2023 18:29 [facility] Performing Lab [facility] 11/30/2023 18:29 [facility] Scanned Images 11/30/2023 18:[address] [facility] Tissue SPECIMEN FROM SKIN / Unknown Collection, Other / Unknown 11/29/2023 9:54 EDT 11/29/2023 11:35 EDT Andrew Sánchez MD PATHOLOGY OR DERABLES [facility] [address] [place] [address] documented in this encounter Visit Diagnoses Diagnosis Rash- Primary Rash and other nonspecific skin eruption Facial eczema Contact dermatitis and other eczema, due to unspecified cause Eczema of eyelid, unspecified laterality Sensation of skin crawling documented in this encounter Historical Medications * This list may reflect changes made after this encounter. Medication Sig Dispensed Refills Start Date End Date triamcinolone (KENALOG) 0.025 % cream Apply topically 2 times daily. Patient unsure of dosage pantoprazole (PROTONIX) 20 mg tablet Take 2 Tablets by mouth daily. Unsure of dosage buprenorphine-naloxone (SUBOXONE) 2-0.5 mg tablet, sublingual Place 1 Tablet under the tongue daily. Patient unsure of dosage 03/08/2024 busPIRone (BUSPAR) 5 mg tablet Take 1 Tablet by mouth 2 times daily. Patient unsure dosage 03/08/2024 sertraline (ZOLOFT) 25 mg tablet Take 1 Tablet by mouth daily. Unsure dosage 03/08/2024 added in this encounter Care Teams Forge Utility Worker Relationship Specialty Start Date End Date Unknown, Provider, PCP - General 06/24/15 documented as of this encounter
--- OUTSIDE RECORDS SUMMARY | 2024-06-03 11:07 | XMS_ITS | Encounter Summary ---
Author Organization [facility] Address [address] [place] [address] Care Team Providers Care Convertible Top Installer Name Role Phone Unknown, Provider Primary Care Provider [phone] Reason for Visit * Reason Onset Date Comments Results 04/04/2024 O&P not run Encounter Details Date Type Department Care Team (Late st Contact Info) Description 04/04/2024 Telephone [facility] Infectious Disease [address] [place] [address], [place], [place] [id number] Adelaida Rose, RN [address] [place] [phone] Results (O&P not run) Social History Tobacco Use Types Packs/Day Years [...] Miscellaneous Notes * Telephone Encounter - Adelaida Rose, RN - 04/10/2024 7513 EDT Patient notified about O&P sample and 03/26/24 TE about blood in urine, test, Neurology referral, and head MRI. Patient did not receive my Egoscue message even though it was marked Lastread by Brii Domínguez at 19:49 on 03/26/2024. . Gave patient numbers to IT for mychart support and Neurology to follow up on referral. O&P orders x3 and test faxed to [facility]. Patient notified we will call when we receive results. Patient agreed with plan. * Telephone Encounter - Adelaida Rose RN - 04/06/2024 1455 EDT Discussed with Ray at lab. He recommends patient come in and citrus picker the green ecofix vial and a sterile cup so she can transfer the stool immediately after collecting the sample, then drop it off at the lab. * Telephone Encounter - Fernando Patrick - 04/04/2024 1628 EDT Ray from [facility] lab call back, stated that Adelaida was requesting handling/packaging instructions. Ray relayed that the sample needs to be in a green eco fix container and there is a 30 minute transfer window. * Telephone Encounter - Adelaida Rose RN - 04/04/2024 1059 EDT Received fax from [facility]- O&P was not performed due to stool sample not transferred or delivered to lab in time. Called [facility] lab and left message. Would like details on stool handling/packaging instructions. documented in this encounter Plan of Treatment Scheduled Orders Name Type Priority Associated Diagnoses Orde r Schedule QUANT BETA HCG, Lab Routine Hematuria, unspecified type Expected: 04/10/2024 (Approximate), Expires: 04/10/2025 documented as of this encounter Visit Diagnoses Diagnosis Hematuria, unspecified type- Primary documented in this encounter Care Teams Convertible Top Installer Relationship Specialty Start Date End Date Unknown, Provider, PCP - General 06/24/15 documented as of this encounter
--- OUTSIDE RECORDS SUMMARY | 2024-06-03 11:07 | XMS_ITS | Encounter Summary ---
Author Organization [facility] Address [address] [place] [address] Care Team Providers Care Fur Nailer Name Role Phone Unknown, Provider Primary Care Provider Encounter Details Date Type Department Care Team (Late st Contact Info) Description 10/23/2019 Lab Requisition [facility] Pathology & Laboratory Medicine - [address] [address] Unknown, Provider, Social History Tobacco Use Types Packs/Day Years Used Date Smoking Tobacco: Never Assessed Sex and Gender Information Value Date Recorded Sex Assigned at Not on file Gender Identity Not on file Sexual Orientation Not on file documented as of this encounter Plan of Treatment Not on file documented as of this encounter Procedures Procedure Name Priority Date/Time Associated Diagnosis Comments HIV 1/2 ANTIGEN AND ANTIBODY, 4TH GENERATION Routine 10/23/2019 14:35 EDT documented in this encounter Results * HIV 1/2 ANTIGEN AND ANTIBODY, 4TH GENERATION (10/23/2019 14:35 EDT) HIV 1 and 2 Antibody/p24 Antigen, 4th Generation Negative Negative 10/24/2019 12:14 EDT [facility] Comment: If acute HIV-1 infection is suspected in a high risk ??patient, submit plasma specimen for HIV-1 RNA quantitation test. Fourth Generation assay performed on the Siemens Zhui Xinaur. Blood VENOUS BLOOD / Unknown 10/23/2019 14:35 EDT 10/23/2019 21:18 EDT Provider Unknown IMMUNOLOGY AND SEROL EDU ORDERABLES [facility] [address] [place] [address] documented in this encounter Visit Diagnoses Not on filedocumented in this encounter Additional Health Concerns Infection Onset Date Last Indicated Resolved Time COVID-19 06/01/2021 06/01/2021 06/21/2021 22:1 5 EST documented as of this encounter Care Teams Fur Nailer Relationship Specialty Start Date End Date Unknown, Provider, PCP - General 06/24/15 documented as of this encounter
--- OUTSIDE RECORDS SUMMARY | 2024-06-03 11:07 | XMS_ITS | Encounter Summary ---
Author Organization [facility] Address [address] [place] [address] Care Team Providers Care Last Picker Name Role Phone Unknown, Provider Primary Care Provider [phone] Encounter Details Date Type Department Care Team (Late st Contact Info) Description 09/03/2020 Lab Requisition [facility] Pathology & Laboratory Medicine - [facility] [address] [place] [address] Outr Resulting Lab, Provider Social History Tobacco [...] 1/2 ANTIGEN AND ANTIBODY, 4TH GENERATION Routine 09/03/2020 11:22 EST documented in this encounter Results * HIV 1/2 ANTIGEN AND ANTIBODY, 4TH GENERATION (09/03/2020 11:22 EST) HIV 1 and 2 Antibody/p24 Antigen, 4th Generation Negative Negative 09/04/2020 9:[address] [facility] Comment: If acute HIV-1 infection is suspected in a high risk ??patient, submit plasma specimen for HIV-1 RNA quantitation test. Fourth Generation assay performed on the Siemens Centaur. Blood VENOUS BLOOD / Unknown 09/03/2020 11:22 EST 09/03/2020 16:34 EST Provider Outr Resulting Lab IMMUNOLOGY A ND SEROLOGY ORDERABLES Performing Organization Address City/State/[facility] Co de Phone Number [facility] [address] [place] [address] documented in this encounter Visit Diagnoses Not on filedocumented in this encounter Additional Health Concerns Infection Onset Date Last Indicated Resolved Time COVID-19 06/01/2021 06/01/2021 06/21/2021 22:1 5 EST documented as of this encounter Care Teams Last Picker Relationship Specialty Start Date End Date Unknown, Provider, PCP - General 06/24/15 documented as of this encounter
--- OUTSIDE RECORDS SUMMARY | 2024-06-03 11:07 | XMS_ITS | Clinical Summary ---
Author Organization [facility] Address [address] [place] [address] Care Team Providers Care Plating Technician Name Role Phone Unknown, Provider Primary Care Provider Allergies Active Allergy Reactions Criticality Noted Date Comments Doxycycline Nausea And Vomiting 03/08/2024 Flagyl (As Hcl) 11/29/2023 Other - See Comments 11/29/2023 Environmental allergies Medications Medication Sig Dispensed Refills Start Date End Date Status pantoprazole (PROTONIX) 20 mg tablet Take 2 Tablets by mouth daily. Unsure of dosage Active triamcinolone (KENALOG) 0.025 % cream Apply topically 2 times daily. Patient unsure of dosage Active TACRolimus (PROTOPIC) 0.1 % ointmentIndications: Facial eczema,Eczema of eyelid, unspecified laterality Apply topically to rash on face and eyelids twice daily as needed. May sting on first few applications. 100 g 5 11/29/2023 Active Additional Information Patient not taking.Reported on 03/08/2024 dupilumab (DUPIXENT PEN) 300 mg/2 mL pen injector pen injectorIndications: Dermatitis Inject 4 mL into the skin Once for 1 dose. Then inject 300mg SC every 14 days starting day 15. 8 mL 01/18/2024 Active dupilumab (DUPIXENT PEN) 300 mg/2 mL pen injector pen injectorIndications: Dermatitis Inject 2 mL into the skin every 14 days. 12 mL 1 01/18/2024 Active SUBOXONE 8-[address] ONE FILM UNDER THE TONGUE EVERY DAY AT NOON Active busPIRone (BUSPAR) 7.5 mg tablet Take 1 Tablet by mouth 2 times daily. 08/11/2023 Active sertraline (ZOLOFT) 100 mg tablet Take 1 Tablet by mouth daily. 02/04/2024 Active oxybutynin (DITROPAN-XL) 5 mg CR tablet take one tablet by mouth every day in the morning 02/08/2024 Active modafiniL (PROVIGIL) 200 mg tablet take one tablet by mouth every morning 02/16/2024 Active VRAYLAR 1.5 mg capsule Take 1 Capsule by mouth daily. 01/27/2024 Active LORazepam (ATIVAN) 2 mg tablet One tablet by mouth 30 minutes prior to procedure 1 Tablet 05/07/2024 Active Active Problems Problem Noted Date Diagnosed Date Dermatitis 01/18/2024 Encounters Date Type Department Care Team Description 05/09/2024 Specialty Pharmacy [facility] [address] [place], [place] [id number] Jeffrey Carty RPH Started Clinical Follow-up (2x annually) for Dermatology, Started Refill Coordination Outreach for Dermatology 05/07/2024 18:53 EDT - 05/07/2024 23:59 EDT Hospital Encounter [facility] MRI [address] [place] [address] Migraine without status migrainosus, not intractable, unspecified migraine type; Neuropathy Discharge Disposition: Home or Self Care 05/07/2024 Telephone [facility] Pulmonology [address] [phone] Nita Johnson RN Medication Management 04/11/2024 Specialty Pharmacy [facility] [address] [place], [place] [id number] Jeffrey Carty RPH Refill Coordination Outreach for Dermatology 04/04/2024 Telephone [facility] Infectious Disease [address] [place] [address] Adelaida Rose RN Results (O&P not run) 03/27/2024 Orders Only [facility] MRI [address] [place] [address] Mary Gupta 03/26/2024 Telephone [facility] Infectious Disease [address] [place] [address] Adelaida Rose RN Results; Provider Referred 03/26/2024 Orders Only [facility] Infectious Disease [address] [place] [address] Sandy Agee MD Migraine without status migrainosus, not intractable, unspecified migraine type (Primary Dx); Neuropathy 03/22/2024 11:00 EDT Office Visit [facility] Infectious Disease [address] [place], [place] [phone] Sandy Agee MD Skin lesions (Primary Dx); Urinary incontinence, unspecified type; Hair loss; Neuropathy; Migraine without status migrainosus, not intractable, unspecified migraine type; Abdominal cramping 03/13/2024 Specialty Pharmacy [facility] [address] [place] [id number] Jeffrey Carty [facility] Refill Coordination Outreach for Dermatology 03/08/2024 14:00 EDT Initial consult [facility] Infectious Disease [address], [place] [phone] Sandy Agee MD Skin lesions (Primary Dx); Urinary incontinence, unspecified type; Hair loss from Last 3 Months Social History Tobacco Use Types Packs/Day Years Used Date Smoking Tobacco: Every Day Cigarettes 1 34.8 Started: 1989 Smokeless Tobacco: Never Tobacco Cessation:Ready to Q uit: Not Asked; Counseling Given: Not Answered Comments:One pack daily Interpersonal Safety Answer Date Record ed Physically Hurt Never 03/16/2020 Verbally Threaten Not on file 03/16/2020 Sex and Gender Information Value Date Recorded Sex Assigned at Not on file Gender Identity Not on file Sexual Orientation Not on file Obstetrics History Last Filed Vital Signs Vital Sign Reading Time Taken Comments Blood Pressure 118/84 03/22/2024 1108 EDT Pulse 86 03/22/2024 1108 EDT Temperature 36.5 ??C (97.7 ??F) 03/22/2024 1108 EDT Respiratory Rate - - Oxygen Saturation 99% 03/22/2024 1108 EDT Inhaled Oxygen Concentration - - Weight 61.5 kg (135 lb 9.6 oz) 03/22/2024 1108 E DT Height - - Body Mass Index - - Plan of Treatment Health Maintenance Due Date Last Done Comments COVID-19 Vaccine (#1) 1984 Pneumococcal Immunization (1 of 2 - PCV) 1985 Hepatitis B Vaccine (1 of 3 - 19+ 3-dose series) 1998 Hepatitis C Screen Completed 03/08/2024, 0 09/03/2020, 10/23/2019, Additional history exists Procedures Procedure Name Priority Date/Time Associated Diagnosis Comments MR HEAD W WO CONTRAST Routine 05/07/2024 19:54 EDT Migraine without status migrainosus, not intractable, unspecified migraine type Neuropathy URINE CHEMICAL (DIP) & SEDIMENT (MICRO) WITH REFLEX TO CULTURE Routine 03/22/2024 12:19 EDT Urinary incontinence, unspecified type HEPATITIS C AB W REFLEX TO HCV RNA BY PCR Routine 03/08/2024 14:59 EDT Skin lesions HIV 1/2 ANTIGEN AND ANTIBODY, 4TH GENERATION Routine 03/08/2024 14:59 EDT Skin lesions SYPHILIS RPR SCREEN W/REFLEX Routine 03/08/2024 14:59 EDT Skin lesions COMPREHENSIVE METABOLIC PANEL (CMP) Routine 03/08/2024 14:59 EDT Skin lesions COMPLETE BLOOD COUNT AND DIFFERENTIAL Routine 03/08/2024 14:59 EDT Skin lesions from Last 3 Months Results * MR HEAD W WO CONTRAST (05/07/2024 19:54 EDT) Anatomical Region Laterality Modality Head Magnetic Resonan ce 05/07/2024 19:2 3 EDT Impressions 05/07/2024 23:11 EDT No acute intracranial findings. THIS DOCUMENT HAS BEEN ELECTRONICALLY SIGNED BY ASHOK GRAHAM MD FOR ANY QUESTIONS OR CONCERNS REGARDING THIS REPORT PLEASE CALL [facility] AT [phone] Narrative 05/07/2024 23:11 EDT PROCEDURE INFORMATION: Exam: MR Head Without and With Contrast Exam date and time: 05/07/2024 7:23 PM Age: 44 years old Clinical indication: Migraine, unspecified, not intractable, without status migrainosus; Polyneuropathy, unspecified; Change in migraine pattern, new neuropathy symptoms TECHNIQUE: Imaging protocol: Magnetic resonance imaging of the head without and with contrast. Contrast material: DOTAREM; Contrast volume: 10 ml; Contrast route: INTRAVENOUS (IV); ?? COMPARISON: No relevant prior studies available. FINDINGS: Brain: No intracranial hemorrhage or extra-axial fluid collection. No evidence of mass effect or midline shift. No restricted diffusion to suggest acute infarct. No abnormal intracranial enhancement. Cerebral ventricles: Ventricles, cisterns, and sulci are normal. Bones: Unremarkable. Paranasal sinuses: Normal as visualized. No acute sinusitis. Mastoid air cells: No mastoid effusion. Orbital cavities: Unremarkable. Soft tissues: Unremarkable. Procedure Note Ashok Graham MD - 05/07/2024 PROCEDURE INFORMATION: Exam: MR Head Without and With Contrast Exam date and time: 05/07/2024 7:23 PM Age: 44 years old Clinical indication: Migraine, unspecified, not intractable, without status migrainosus; Polyneuropathy, unspecified; Change in migraine pattern, new neuropathy symptoms TECHNIQUE: Imaging protocol: Magnetic resonance imaging of the head without and with contrast. Contrast material: DOTAREM; Contrast volume: 10 ml; Contrast route: INTRAVENOUS (IV); COMPARISON: No relevant prior studies available. FINDINGS: Brain: No intracranial hemorrhage or extra-axial fluid collection. No evidence of mass effect or midline shift. No restricted diffusion to suggest acute infarct. No abnormal intracranial enhancement. Cerebral ventricles: Ventricles, cisterns, and sulci are normal. Bones: Unremarkable. Paranasal sinuses: Normal as visualized. No acute sinusitis. Mastoid air cells: No mastoid effusion. Orbital cavities: Unremarkable. Soft tissues: Unremarkable. IMPRESSION No acute intracranial findings. THIS DOCUMENT HAS BEEN ELECTRONICALLY SIGNED BY ASHOK GRAHAM MD FOR ANY QUESTIONS OR CONCERNS REGARDING THIS REPORT PLEASE CALL [facility] [phone] Sandy Agee MD IMG MRI ORDERABLES * (ABNORMAL) UA CHEMICAL & SEDIMENT + REFLEX TO CULTURE (03/22/2024 12:19 ED) Color UA Yellow Colorless, Yellow 03/22/2024 16:53 [facility] Clarity UA Clear Clear 03/22/2024 16:53 [facility] Glucose UA Negative Negative mg/dL 03/22/2024 16:53 [facility] Bilirubin UA Negative Negative 03/22/2024 16:53 [facility] Ketones UA Negative Negative 03/22/2024 16:53 [facility] Specific [place], Urine 1.015 1.001 - 1.030 03/22/2024 16:53 [facility] Blood UA 3+(A) Negative 03/22/2024 16:53 [facility] Nitrite UA Negative Negative 03/22/2024 16:53 [facility] Leukocyte Esterase UA Negative Negative 03/22/2024 16:53 [facility] Protein UA Negative Negative mg/dL 03/22/2024 16:53 [facility] pH, UA 6.0 <8.5 03/22/2024 16:53 [facility] Urine RBC Count, Manual 11 - 50(A) 0 - 2 Cells/HPF 03/22/2024 16:53 [facility] Urine WBC Count 0 - 3 0 - 3 Cells/HPF 03/22/2024 16:53 [facility] Urine Squamous Count, Manual Few(A) None Seen Cells/HPF 03/22/2024 16:53 [facility] Urine Hyaline Cast Count, Manual <=10 <=10 Casts/LPF 03/22/2024 16:53 [facility] Urine Bacteria Count, Manual Few(A) None Seen Bacteria/HP F 03/22/2024 16:53 [facility] Urobilinogen UA 1.0 0.2-1.0 mg/dL mg/dL 03/22/2024 16:53 EDT [facility] Urine URINE SPECIMEN OBTAINED BY CLEAN CATCH PROCEDURE / Unknown Urine Collect / Unknown 03/22/2024 12:19 EDT 03/22/2024 12:19 EDT Narrative [facility] - 03/22/2024 16:53 EDT Urine Sediment Analysis results are unreliable on urines that are unrefrigerated for >2 hrs or refrigerated >8 hrs. NOTE: Reflex to Urine Culture test is not indicated based on Urine Sediment Analysis results. Sandy Agee MD URINALYSIS ORDERABLE S Performing Organization Address [facility]/ZIP Co de Phone Number [facility] [address] [place] [address] * SYPHILIS RPR SCREEN W/REFLEX (03/08/2024 14:59 EDT) Rapid Plasma Reagin Screen (RPR) Nonreactive Nonreactive 2024 5:44 EDT [facility] Blood VENOUS BLOOD / Unknown Venipuncture / Unknown 03/08/2024 14:59 EDT 03/08/2024 14:59 EDT Sandy Agee MD IMMUNOLOGY AND SEROL OGY ORDERABLES Performing Organization Address [facility] Co de Phone Number [facility] [address] [place] [address] * HEPATITIS C AB W REFLEX TO HCV RNA BY PCR (03/08/2024 14:59 EDT) Hep C Antibody Negative Negative 03/08/2024 18:24 EDT [facility] Blood VENOUS BLOOD / Unknown Venipuncture / Unknown 03/08/2024 14:59 EDT 03/08/2024 14:59 EDT Sandy Agee MD CHEMISTRY & BLOOD GA S ORDERABLES Performing Organization Address [facility]/ZIP Co de Phone Number [facility] [address] [place] [address] * (ABNORMAL) COMPLETE BLOOD COUNT AND DIFFERENTIAL (03/08/2024 14:59 EDT) WBC 9.99 4.00 - 12.40 K/cmm 03/08/2024 17:20 [facility] RBC 4.43 3.86 - 5.04 M/cmm 03/08/2024 17:20 [facility] Hemoglobin 13.5 11.6 - 15.2 g/dL 03/08/2024 17:20 [facility] HCT 38.6 34.9 - 44.4 % 03/08/2024 17:20 [facility] MCV 87 81 - 98 fL 03/08/2024 17:20 [facility] MCH 30.5 26.7 - 33.3 pg 03/08/2024 17:20 [facility] MCHC 35.0 32.1 - 35.9 g/dL 03/08/2024 17:20 [facility] RDW-CV 12.7 <14.7 % 03/08/2024 17:20 [facility] RDW-SD 40.4 <50.4 fl 03/08/2024 17:20 [facility] PLT 288 141 - 377 K/cmm 03/08/2024 17:20 [facility] MPV 8.7(L) 9.5 - 12.7 fL 03/08/2024 17:20 [facility] % Neutrophils 49.0 % 03/08/2024 17:20 [facility] % Lymphocytes 43.8 % 03/08/2024 17:20 [facility] % Monocytes 4.8 % 03/08/2024 17:20 [facility] % Eosinophils 1.8 % 03/08/2024 17:20 [facility] % Basophils 0.5 % 03/08/2024 17:20 [facility] % Immature Grans 0.1 <0.9 % 03/08/20 17:20 [facility] Absolute Neutrophils 4.89 2.20 - 8.85 K/cmm 03/08/2024 17:20 [facility] Absolute Lymphocytes 4.38(H) 1.09 - 3.30 K/cmm 03/08/2024 17:20 [facility] Absolute Monocytes 0.48 0.10 - 0.80 K/cmm 03/08/2024 17:20 [facility] Absolute Eosinophils 0.18 0.03 - 0.61 K/cmm 03/08/2024 17:20 [facility] ABS Basophils 0.05 0.01 - 0.11 K/cmm 03/08/2024 17:20 [facility] Absolute Immature Grans 0.01 0.00 - 0.06 K/cmm 03/08/2024 17:20 [facility] Type of Differential: Auto 03/08/2024 17:20 [facility] Blood VENOUS BLOOD / Unknown Venipuncture / Unknown 03/08/2024 14:59 EDT 03/08/2024 14:59 EDT Sandy Agee MD PACKAGES & DNA PROBE ORDERABLES [facility] [address] [place] [address] * HIV 1/2 ANTIGEN AND ANTIBODY, 4TH GENERATION (03/08/2024 14:59 EDT) HIV 1 and 2 Antibody/p24 Antigen, 4th Generation Negative Negative 03/08/2024 18:16 [facility] Comment:If acute HIV-1 infec tion is suspected in a high risk patient, submit plasma specimen for HIV-1 RNA quantitation test. Blood VENOUS BLOOD / Unknown Venipuncture / Unknown 03/08/2024 14:59 EDT 03/08/2024 14:59 EDT Sandy Agee MD IMMUNOLOGY AND OLIVIA SORENSEN ORDERABLES [facility] [address] [place] [address] * (ABNORMAL) COMPREHENSIVE METABOLIC PANEL (CMP) (03/08/2024 14:59 EDT) Sodium 135(L) 136 - 145 mmol/L 03/08/2024 17:36 [facility] Potassium 4.4 3.5 - 5.0 mmol/L 03/08/2024 17:36 [facility] Chloride 102 96 - 110 mmol/L 03/08/2024 17:36 [facility] CO2 Total 26 22 - 32 mmol/L 03/08/2024 17:36 [facility] Glucose 95 70 - 99 mg/dl 03/08/2024 17:36 [facility] BUN 12 10 - 26 mg/dL 03/08/2024 17:36 [facility] Creatinine 0.69 0.52 - 1.04 mg/dL 03/08/2024 17:36 [facility] eGFR 110 >60 mL/min/1.7 3m2 03/08/2024 17:36 [facility] Total Protein 7.2 6.3 - 8.2 g/dL 03/08/2024 17:36 [facility] Albumin 4.2 3.4 - 4.9 g/dL 03/08/2024 17:36 [facility] Alkaline Phosphatase 97 38 - 126 U/L 03/08/2024 17:36 [facility] AST 20 15 - 46 U/L 03/08/2024 17:36 [facility] ALT 11 <35 U/L 03/08/2024 17:36 [facility] Bilirubin, Total 0.5 <1.4 mg/dL 03/08/20 17:36 [facility] Calcium 9.3 8.5 - 10.5 mg/dL 03/08/2024 17:36 EDT [facility] Albumin/Globulin Ratio 1.4 1.0 - 2.5 03/08/2024 17:36 EDT [facility] Anion Gap 7 5 - 14 mmol/L 03/08/2024 17:36 EDT [facility] Blood VENOUS BLOOD / Unknown Venipuncture / Unknown 03/08/2024 14:59 EDT 03/08/2024 14:59 EDT Sandy Agee MD CHEMISTRY & BLOOD GA S ORDERABLES [facility] [address] [place] [address] from Last 3 Months Care Teams Plating Technician Relationship Specialty Start Date End Date Unknown, Provider, PCP - General 06/24/15
--- OUTSIDE RECORDS SUMMARY | 2024-06-03 11:07 | XMS_ITS | Encounter Summary ---
Author Organization [facility] Address [address] [place] [address] Care Team Providers Care Spring Fitter Helper Name Role Phone Unknown, Provider Primary Care Provider Encounter Details Date Type Department Care Team (Late st Contact Info) Description 03/04/2021 Lab Requisition [facility] Pathology & Laboratory Medicine - [facility] [address] [place] [address] Sebastián Flores MD [address] [place] [address] [address] [place], [place] [id number] Encounter for other general examination Social History [...] Procedure Name Priority Date/Time Associated Diagnosis Comments SURGICAL PATHOLOGY Today 03/04/2021 11 :15 EDT Encounter for other general examination documented in this encounter Results * SURGICAL PATHOLOGY (03/04/2021 11:15 EDT) Note to Patient The following pathology results have been interpreted by your pathologist and may be available to you before your health provider has had the opportunity to review them. Please allow time for your provider to receive these results and explore management options, if applicable. 03/09/2021 9:27 [facility] Final Diagnosis A. STOMACH, ANTRUM, ULCER, BIOPSY: - Gastric antral mucosa with reactive (chemical) gastropathy B. GASTROESOPHAGEAL JUNCTION, BIOPSY: - Esophagitis with eosinophils (maximum eosinophil count >50 / high power field) - Squamocolumnar junctional mucosa negative for intestinal metaplasia. Negative for dysplasia. C. ESOPHAGUS, POLYP, BIOPSY: - Squamous mucosa with mild reactive changes - Deeper sections have been examined 03/09/2021 9:27 [facility] Attestation There was significant resident/fellow involvement in the diagnostic evaluation of this case. By the signature below, the attending physician certifies that they have personally conducted a gross and/or microscopic examination of the described specimens and rendered or confirmed the above diagnosis. 03/09/2021 9:27 [facility] at 0927 Clinical History Dysphagia 03/09/2021 9:27 [facility] Gross Description A. Received in formalin labelled with proper patient identification (initials S, S) and 1. Antrum ulcer Bx is a single whitten tissue fragment (0.3 x 0.2 x 0.2 cm). Entirely submitted in A1. B. Received in formalin labelled with proper patient identification (initials S, S) and 2. GE jx bxs are two whitten tissue fragments (0.3 x 0.2 x 0.1 cm and 0.4 x 0.2 x 0.1 cm). Entirely submitted in B1. C. Received in formalin labelled with proper patient identification (initials S, S) and 3. Esophageal polyp are three white-german tissue fragments (0.1 x 0.1 x 0.1 cm to 0.3 x 0.2 x 0.1 cm). Entirely submitted in C1. LEONARDO SILVERMAN(ASCP) 03/05/2021 11:22 03/09/2021 9:27 [facility] /Jey w: Jessica Ryan DO 03/09/2021 9:27 [facility] Performing Lab [facility] 9:27 EDT [facility] Scanned Images 03/09/2021 9:27 EDT [facility] Tissue ENTIRE ESOPHAGUS / Unknown 03/04/2021 11:15 EDT 03/04/2021 17:45 EDT Tissue specimen (specimen) ESOPHAGEAL STRUCTURE / Unknown 03/04/2021 11:15 EDT 03/04/2021 17:45 EDT Tissue specimen (specimen) ESOPHAGEAL STRUCTURE / Unknown 03/04/2021 11:15 EDT 03/04/2021 17:45 EDT Sebastián Flores MD PATHOLOGY ORDERA [place] [facility] [address] [place] [address] documented in this encounter Visit Diagnoses Diagnosis Encounter for other general examination documented in this encounter Additional Health Concerns Infection Onset Date Last Indicated Resolved Time COVID-19 06/01/2021 06/01/2021 06/21/2021 22:1 5 EST documented as of this encounter Care Teams Spring Fitter Helper Relationship Specialty Start Date End Date Unknown, Provider, PCP - General 06/24/15 documented as of this encounter
--- OUTSIDE RECORDS SUMMARY | 2024-06-03 11:07 | XMS_ITS | Encounter Summary ---
Author Organization [facility] Address [address] [place] [address] Care Team Providers Care Image Assembler Name Role Phone Unknown, Provider Primary Care Provider Encounter Details Date Type Department Care Team (Latest Contact Info) Description 04/11/2024 Specialty Pharmacy [facility] [address] [place] [address] Jeffrey Carty Kiersten Refill Coordination Outreach for Dermatology Social History [...] on filedocumented in this encounter Care Teams Image Assembler Relationship Specialty Start Date End Date Unknown, Provider, PCP - General 06/24/15 documented as of this encounter
--- OUTSIDE RECORDS SUMMARY | 2024-06-03 11:07 | XMS_ITS | Encounter Summary ---
Author Organization [facility] Address [address] [place] [address] Care Team Providers Care Drupal Web Developer Name Role Phone Unknown, Provider Primary Care Provider Encounter Details Date Type Department Care Team (Latest Contact Info) Description 02/04/2020 Lab Requisition [facility] Pathology & Laboratory Medicine - [facility] [address] [place] [address] Jennifer Barrera MD [address] [place] [id number] Encounter for general adult medical examination without abnormal findings; Encounter for screening for malignant neoplasm of cervix; Encounter for screening for human papillomavirus (HPV) Social History Tobacco Use Types Packs/Day Years Used Date Smoking Tobacco: Never Assessed Sex and Gender Information Value Date Recorded Sex Assigned at Not on file Gender Identity Not on file Sexual Orientation Not on file documented as of this encounter Plan of Treatment Not on file documented as of this encounter Procedures Procedure Name Priority Date/Time Associated Diagnosis Comments PAP TEST Today 02/01/2020 13:30 EDT Encounter for general adult medical examination without abnormal findings Encounter for screening for malignant neoplasm of cervix Encounter for screening for human papillomavirus (HPV) CHLAMYDIA/N. GONORRHOEAE AMPLIFIED NUCLEIC ACID, THINPREP Today 02/01/2020 13:30 EDT HPV DNA DETECTION WITH GENOTYPING, PCR Today 02/01/2020 13:30 EDT Encounter for general adult medical examination without abnormal findings Encounter for screening for malignant neoplasm of cervix Encounter for screening for human papillomavirus (HPV) documented in this encounter Results * HUMAN PAPILLOMAVIRUS (HPV) DETECTION-HIGH RISK TYPES (02/01/2020 13:30 EDT) HPV other High Risk types, PCR Negative Negative 02/15/2020 13:05 EDT [facility] Comment:No E6 or E7 mRNA is detected from HPV types 16,18,31,33,35,39,45,51,52,56,58,59,66, and 68 by test fixture designer mediated amplification. Papanicolaou smear specimen (specimen) CERVIX UTERI STRUCTURE / Unknown 02/01/2020 13:30 EDT 02/13/2020 13:26 EDT Jennifer Barrera MD MICROBIOLOGY - GENER AL ORDERABLES Performing Organization Address City/State/[facility] Co de Phone Number [facility] [address] [place] [phone] * PAP TEST (02/01/2020 13:30 EDT) Specimens A. Cervix and/or Endocervix , ThinPrep Imaging System with Manual Evaluation 02/15/2020 13:05 T [facility] Specimen Adequacy Satisfactory for Evaluation - transformation zone component present Scant squamous epithelial component 02/15/2020 13:05 T [facility] General Categorization Negative for intraepithelial lesion or malignancy 02/15/2020 13:05 T [facility] Attestation . 02/15/2020 13:05 [facility] at 1305 Clinical History NONE 02/15/20 13:05 T [facility] HPV The result for the Human Papillomavirus (HPV) Detection-High Risk Types is Negative. No E6 or E7 mRNA is detected from HPV types 16,18,31,33,35,39 ,45,51,52,56,58,5 9,66, and 68 by test fixture designer mediated amplification.Julia ting was performed on specimen [id number] and was resulted on 02/15/2020 1303 EDT by CLARA, LAB INSTRUMENT RESULTS IN 02/15/2020 13:05 EDT [facility] Scanned Images 02/15/2020 13:05 EDT [facility] Papanicolaou smear specimen (specimen) CERVIX UTERI STRUCTURE / Unknown 02/01/2020 13:30 EDT 02/05/2020 8:51 EDT Jennifer Barrera MD PATHOLOGY ORDERABLES Performing Organization Address City/[facility]/ZIP Co de Phone Number [facility] [address] [place] [address] * CHLAMYDIA/N. GONORRHOEAE AMPLIFIED RNA, THINPREP (02/01/2020 13:30 EDT) Neisseria gonorrhoeae Result Negative Negative 02/05/2020 15:38 EDT [facility] Chlamydia trachomatis Result Negative Negative 02/05/2020 15:38 EDT [facility] Papanicolaou smear specimen (specimen) CERVIX UTERI STRUCTURE / Unknown 02/01/2020 13:30 EDT 02/05/2020 7:43 EDT Jennifer Barrera MD MICROBIOLOGY - GENER AL ORDERABLES Performing Organization Address City/[facility]/ZIP Co de Phone Number [facility] [address] [place] [address] documented in this encounter Visit Diagnoses Diagnosis Encounter for general adult medical examination without abnormal findings Unspecified general medical examination Encounter for screening for malignant neoplasm of cervix Screening for malignant neoplasm of the cervix Encounter for screening for human papillomavirus (HPV) Special screening examination for human papillomavirus (HPV) documented in this encounter Additional Health Concerns Infection Onset Date Last Indicated Resolved Time COVID-19 06/01/2021 06/01/2021 06/21/2021 22:1 5 EST documented as of this encounter Care Teams Drupal Web Developer Relationship Specialty Start Date End Date Unknown, Provider, PCP - General 06/24/15 documented as of this encounter
--- OUTSIDE RECORDS SUMMARY | 2024-06-03 11:07 | XMS_ITS | Encounter Summary ---
Author Organization [facility] Address [facility] [address] [place] [id number] Care Team Providers Care Clasp Machine Operator Name Role Phone Haroldo Burrell Primary Care Provider [phone] Reason for Referral * Consultation (Elective) - Closed Specialty Diagnoses / Procedures Referred By Contac t Referred To Contact Dermatology Diagnoses Multiple excoriations Deborah Kaur MD [facility] [address] [place] [address] Fermin Munoz MD [facility] [place] [address] Referral ID Status Reason Start Date Expiration Date V isits Requested Visits Authorized [id number] Closed Consult, Test & Treat 11/08/2023 11/07/2024 1 1 Encounter Details Date Type Department Care Team (Late st Contact Info) Description 11/08/2023 Orders Only Dermatology at [facility] [address] [place] [address] Deborah Kaur MD [facility] [address] [place] [address] Multiple excoriations Social History Tobacco Use Types Packs/Day Years Used Date Smoking Tobacco: Every Day Cigarettes Smokeless Tobacco: Never Sex and Gender Information Value Date Recorded Sex Assigned at Not on file Gender Identity Not on file Sexual Orientation Not on file documented as of this encounter Plan of Treatment Scheduled Referrals Name Type Priority Associated Diagnoses Orde r Schedule Referral to Specialty Dermatology Outpatient Referral Routine Multiple excoriations Ordered: 11/08/2023 documented as of this encounter Visit Diagnoses Diagnosis Multiple excoriations Other and unspecified superficial injury of other, multiple, and unspecified sites, without mention of infection documented in this encounter Care Teams Clasp Machine Operator Relationship Specialty Start Date End Date Haroldo Burrell PA [address] [facility] [address] [place] [address] PCP - General Internal Medicine 11/01/23 documented as of this encounter
--- OUTSIDE RECORDS SUMMARY | 2024-06-03 11:07 | XMS_ITS | Encounter Summary ---
Author Organization [facility] Address [facility] [place] [address] Care Team Providers Care Toilet Attendant Name Role Phone Haroldo Burrell Primary Care Provider [phone] Reason for Visit * Consultation (Urgent) - Closed Specialty Diagnoses / Procedures Referred By Contac t Referred To Contact Dermatology Diagnoses Scabies CONCERN FOR CRUSTED SCABIES W/ RECURRENCE Sarah Esteves, DOG TRACK KENNEL MANAGER [address] [place] [address] [facility] [address] [place] [address] Referral ID Status Reason Start Date Expiration Date V isits Requested Visits Authorized [id number] Closed Consult, Test & Treat PCP Updated and/or Approved 10/18/2023 04/18/2024 6 6 Encounter Details Date Type Department Care Team (Late st Contact Info) Description 11/01/2023 9:00 AM EDT Office Visit Dermatology at [facility] [address] [place] [phone] Deborah Kaur MD [facility] [address] [place] [address] Excoriation Social History Tobacco Use Types Packs/Day Years Used Date Smoking Tobacco: Every Day Cigarettes Smokeless Tobacco: Never Sex and Gender Information Value Date Recorded Sex Assigned at Not on file Gender Identity Not on file Sexual Orientation Not on file documented as of this encounter Progress Notes * Deborah Kaur MD - 11/01/2023 9:00 AM EDT Images from the original note were not included. DEPARTMENT OF DERMATOLOGY Medical Dermatology Clinic Note Provider: Debroah Kaur MD Patient's preferred name Brii Preferred contact method for results []Phone [x]myD-H []Letter Detailed phone message OK? Y Are there any other people with whom we may discuss your care? 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 Patient is referred to the clinic at the request of Sarah Esteves for rash. PCP referred for crusted scabies recurrence. Patient reports that this all started in July. Onset on 09/16/23. Has tried multiple treatments of permethrin and oral ivermectin. Has also reportedly tried hydroxyzine, topical doxepin, and prednisone. She states that this issue has not resolved and that her kids and grandkids also have similar appearing rashes. She states that she keeps passing this rash back and forth with her children and grandkids and is worried about a community outbreak. She states that they have never been treated for scabies, but she is currently treating her dog for scabies. Reports that she can wipe off the mites that are all over her skin, including her eyes, eyelashes, and inside her mouth. She has photos of scaly skin on her shoulders, different mites that she has rubbed off, and other pictures of suspected scabies on her phone. She reports that it is not currently itchy, but there are times that she just wants to scratch her skin off. 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 Review of Systems: General: Feeling well. Skin: No other skin concerns. Medications: Reviewed in eD-H Allergies: Reviewed in eD-H Skin Examination: Waist-up skin examination: Patient was asked to disrobe to the level of their comfort. Patient elected to remain clothed below the waist. Examination of the scalp, hair, face, ears, neck, back, chest, abdomen, and upper extremities was normal with the exception of the findings below. Assessment/Plan #. Excoriations - Eroded papules and healed scars from scratching on the upper extremities > face > back > lower extremities. Not present in the fingerwebs, toewebs, genitals. No crusted areas noted. (Figure 1) - Started in 07/2023. - Prior treatments (per pt report): multiple courses of permethrin, oral ivermectin, prednisone, topical triamcinolone, hydroxyzine, topical doxepin, amongst many other treatments that pt cannot recall. - Scraping with mineral oil 11/01/23 - negative for scabies. - We discussed that this is not crusted scabies as we would expect to see mites on the scraping with crusted scabies. We discussed that this is not scabies, given that she has had multiple treatmentsfor scabies and the distribution is inconsistent. - She was tested for celiac disease in 2019 which was negative. - We focused on addressing her itch today, as this is her biggest concern. Plan: - Start OTC: N-acetylcysteine 600mg - Take 1 pill daily for 2 weeks. If tolerated, can increase to 2 pills daily for 2 weeks. - Start Rx: triamcinolone 0.1% cream - Apply twice daily to affected areas on the trunk and extremities for 2 weeks, stop for 1 week, then repeat as needed. - Start Rx: hydrocortisone 2.5% cream - Apply twice daily to the affected areas on the face for 2 weeks, stop for 1 week, then repeat as needed. - Recommended dilute vinegar sprays (1 part vinegar, 6 parts water) three times a week. - Recommended OTC: Amlactin daily to twice daily - Recommended that she follows up with Dr. Wade, who see patients with this more frequently and could provide more support for her. Figure 1 Photo(s) taken and charted with patient's verbal consent. Other: OTC skin products discussed RTC: refer to Dr. Wade [x]Note routed to marketing secretary []Recall placed in scheduling system []Appointment scheduled at checkout Scribe attestation: Jose Enrique Janet XiaoVanessa has performed the documentation for this encounter in the presence of and acting as a scribe for Deborah Kaur MD. I performed the above scribed service and agree with the accuracy of the documentation in this encounter. Reviewed and signed by: Deborah Kaur MD Dermatology [facility] Patient seen and evaluated with staff floral merchandiser: Gray Sharma MD Department of Dermatology [facility] * Gray Sharma MD - 11/01/2023 9:00 AM EDT I directly supervised Deborah Kaur MD in the care of this Dermatology patient in person. I saw and evaluated this patient with Deborah Kaur MD. Deborah Kaur MD presented the history and physical exam details to me, then we saw the patient together, and I confirmed these findings. I agree with details as written. My physical examination confirms Deborah Kaur MD's findings. The assessment and plan were formulated in discussion with me at the time of visit, and I agree with them as documented. GRAY SHARMA MD Staff Internet Developer Department of Dermatology [facility] documented in this encounter Plan of Treatment Scheduled Referrals Name Type Priority Associated Diagnoses Order Schedule Referral to Dermatology Outpatient Referral Urgent Scabies Ordered: 10/24/2023 documented as of this encounter Visit Diagnoses Diagnosis Excoriation Other and unspecified superficial injury of other, multiple, and unspecified sites, without mention of infection documented in this encounter Care Teams Toilet Attendant Relationship Specialty Start Date End Date Haroldo Burrell PA [address] [place] [address] PCP - General Internal Medicine 11/01/23 documented as of this encounter
--- OUTSIDE RECORDS SUMMARY | 2024-06-03 11:07 | XMS_ITS ---
Author Organization [facility] Address [address] [place] [address] Care Team Providers Care Referral Rn Name Role Phone Unknown, Provider Primary Care Provider Dermatology Status:Enrolled (Active) Start date:01/18/2024 Enrollment date:01/18/2024 Enrollment reason:Referred by provider Current support & services provided:Clinical Management, Refill Management, Benefits and PA Management Linked medications:dupilumab (Active) Linked problems:Dermatitis (Active) Continued Care and Services Coordination
--- OUTSIDE RECORDS SUMMARY | 2024-06-03 11:07 | XMS_ITS | Encounter Summary ---
Author Organization [facility] Address [address] [place] [address] Care Team Providers Care Radar Mechanic Name Role Phone Unknown, Provider Primary Care Provider [phone] Reason for Referral * Radiology Services (Routine/Next Available) - Authorization Not Required Specialty Diagnoses / Procedures Referred By Contac t Referred To Contact Radiology Diagnoses Migraine without status migrainosus, not intractable, unspecified migraine type Neuropathy Procedures MR HEAD W WO Sandy Pacheco MD [address] [facility], [address] [place] [address] [facility] Referral ID Status Reason Start Date Expiration Date Visits Requested Visits Authorized [id number] Authorization Not Required 03/26/2024 1 1 Reason for Visit * Radiology Services (Routine/Next Available) - Authorization Not Required Specialty Diagnoses / Procedures Referred By Contac t Referred To Contact Radiology Diagnoses Migraine without status migrainosus, not intractable, unspecified migraine type Neuropathy Procedures MR HEAD W WO Sandy Pacheco MD [address], [address] [place] [address] [facility] Referral ID Status Reason Start Date Expiration Date Visits Requested Visits Authorized [id number] Authorization Not Required 03/26/2024 1 1 Encounter Details Date Type Department Care Team (Latest Contact Info) Description 05/07/2024 18:53 EDT - 05/07/2024 23:59 EDT Hospital Encounter [facility] [address] [place] [address] Migraine without status migrainosus, not intractable, unspecified migraine type; Neuropathy Discharge Disposition: Home or Self Care Social History Tobacco Use Types Packs/Day Years [...] on file documented as of this encounter Medications at Time of Discharge Medication Sig Dispensed Refills Start Date End Date busPIRone (BUSPAR) 7.5 mg tablet Take 1 Tablet by mouth 2 times daily. 08/11/2023 dupilumab (DUPIXENT PEN) 300 mg/2 mL pen injector pen injectorIndications:Derm atitis Inject 4 mL into the skin Once for 1 dose. Then inject 300mg SC every 14 days starting day 15. 8 mL 01/18/2024 dupilumab (DUPIXENT PEN) 300 mg/2 mL pen injector pen injectorIndications:Derm atitis Inject 2 mL into the skin every 14 days. 12 mL 1 01/18/2024 LORazepam (ATIVAN) 2 mg tablet One tablet by mouth 30 minutes prior to procedure 1 Tablet 05/07/2024 modafiniL (PROVIGIL) 200 mg tablet take one tablet by mouth every morning 02/16/2024 oxybutynin (DITROPAN-XL) 5 mg CR tablet take one tablet by mouth every day in the morning 02/08/2024 pantoprazole (PROTONIX) 20 mg tablet Take 2 Tablets by mouth daily. Unsure of dosage sertraline (ZOLOFT) 100 mg tablet Take 1 Tablet by mouth daily. 02/04/2024 SUBOXONE 8-[address] ONE FILM UNDER THE TONGUE EVERY DAY AT NOON TACRolimus (PROTOPIC) 0.1 % ointmentIndications:Faci al eczema,Eczema of eyelid, unspecified laterality Apply topically to rash on face and eyelids twice daily as needed. May sting on first few applications. 100 g 5 11/29/2023 triamcinolone (KENALOG) 0.025 % cream Apply topically 2 times daily. Patient unsure of dosage VRAYLAR 1.5 mg capsule Take 1 Capsule by mouth daily. 01/27/2024 documented as of this encounter Discharge Disposition Disposition Code Departure Means Destination Home or Self Care documented in this encounter Miscellaneous Notes * Result Encounter Note - Sandy Agee MD - 05/07/2024 1930 EDT Brain MRI negative. She was also supposed to have a urine test so we could do a CT urogram. And stool O+P's done. Can we check on those please? documented in this encounter Plan of Treatment Not on file documented as of this encounter Procedures Procedure Name Priority Date/Time Associated Diagnosis Comments MR HEAD W WO CONTRAST Routine 05/07/2024 19:54 EDT Migraine without status migrainosus, not intractable, unspecified migraine type Neuropathy documented in this encounter Results * MR HEAD W WO CONTRAST (05/07/2024 19:54 EDT) Anatomical Region Laterality Modality Head Magnetic Resonan ce 05/07/2024 19:2 3 EDT Impressions 05/07/2024 23:11 EDT No acute intracranial findings. THIS DOCUMENT HAS BEEN ELECTRONICALLY SIGNED BY ASHOK GRAHAM MD FOR ANY QUESTIONS OR CONCERNS REGARDING THIS REPORT PLEASE CALL [facility] AT [phone] Narrative 05/07/2024 23:11 EDT PROCEDURE INFORMATION: Exam: [...] CONCERNS REGARDING THIS REPORT PLEASE CALL [facility] [phone] Sandy Agee MD IMG MRI ORDERABLES documented in this encounter Visit Diagnoses Diagnosis Migraine without status migrainosus, not intractable, unspecified migraine type Neuropathy Mononeuritis of unspecified site documented in this encounter Administered Medications Inactive Administered Medications - up to 3 most recent administrations Medication Order MAR Action Action Date Dose Rate Site gadoterate meglumine solution 1-30 mL 1-30 mL, intravenous, Once in imaging, 1 dose, Starting on Tue05/07/24 at 1942, Until Tue05/07/24 at 195, Routine, Imaging Protocol Orders Given 05/07/2024 19:55 EDT 10 mL documented in this encounter Orders Medications Ordered That Graham ht Not Have Been Administered Count Last Ordered Date First Ordered Date gadoterate meglumine solution 1-30 mL 1 documented in this encounter Care Teams Radar Mechanic Relationship Specialty Start Date End Date Unknown, Provider, PCP - General 06/24/15 documented as of this encounter
--- OUTSIDE RECORDS SUMMARY | 2024-06-03 11:07 | XMS_ITS | Encounter Summary ---
Author Organization [facility] [address] Care Team Providers Care Security Project Manager Name Role Phone Haroldo Brurell Primary Care Provider [phone] Encounter Details Date Type Department Care Team (Latest Contact Info) Description 11/01/2023 Travel Social History Tobacco Use Types Packs/Day Years [...] on filedocumented in this encounter Care Teams Security Project Manager Relationship Specialty Start Date End Date Haroldo Burrell PA [address] [place] [address] PCP - General Internal Medicine 11/01/23 documented as of this encounter
--- OUTSIDE RECORDS SUMMARY | 2024-06-03 11:07 | XMS_ITS | Encounter Summary ---
Author Organization [facility] Address [address] [place] [address] Care Team Providers Care Inside Solar Sales Consultant Name Role Phone Unknown, Provider Primary Care Provider [phone] Reason for Visit * Reason Onset Date Comments Prior Auth, Medication 01/18/2024 NS dupilu mab 300mg pen LD and Encounter Details Date Type Department Care Team (Late st Contact Info) Description 01/18/2024 Telephone [facility] Dermatology [address] [address] Andrew Sánchez MD [address] [place] [address], [address] 5 [place] [id number] Prior Auth, Medication (NS dupilumab 300mg pen LD and ) Social History Tobacco Use Types Packs/Day Years [...] on file documented as of this encounter Ordered Prescriptions Prescription Sig Dispensed Refills Start Date End Da te dupilumab (DUPIXENT PEN) 300 mg/2 mL pen injector pen injectorIndications:Dermat itis Inject 2 mL into the skin every 14 days. 12 mL 1 01/18/2024 dupilumab (DUPIXENT PEN) 300 mg/2 mL pen injector pen injectorIndications:Dermat itis Inject 4 mL into the skin Once for 1 dose. Then inject 300mg SC every 14 days starting day 15. 8 mL 01/18/2024 documented in this encounter Progress Notes * Jeffrey Carty RPH - 01/18/2024 1447 EDT Specialty Pharmacy Consultation: [facility] Dermatology Clinic Medication Management: Prospective Medication Review Brii Domínguez (1980) [address] [facility] [address] [facility] [address] Medication/Strength/Form: Dupixent 300 mg pens Dosing: inject 600 mg subcutaneous once on day 1, then 300 mg every 14 days thereafter Diagnosis: eczema (ICD10: L20.84) Provider: Andrew Sánchez MD Allergies Allergen Reactions Flagyl (As Hcl) Other - See Comments Environmental allergies Labs: None required Immunizations: Annual flu vaccine Interactions/Therapy Overlap/Patient Evaluation: Attempted tacrolimus, triamcinolone and clobetasol ointment Biosimilar/Generic Substitution: N/A This past medical history was reviewed in anticipation of a new therapy for Brii. Any interventions that are required before therapy initiation will be communicated to the patient. Jeffrey Carty, PharmD Ambulatory Pharmacist Clinician 01/18/2024 14:48 documented in this encounter Miscellaneous Notes * Telephone Encounter - Eliza Espinzoa - 03/05/2024 1617 EDT Prior Authorization Approval Medication: dupilumab 300mg pen DIEUDONNE and Insurance Name:[facility] Insurance Type: [place] Medicaid Approval Dates: 03/05/2024-07/19/2024 Authorization Number: [id number] Required Pharmacy: No requirement [facility] able to fill?: YES Route to [facility] (if applicable): No Additional Info/Other Notes: Pt is enrolled in our Sprx. Prior Authorization Submission Process - Routine New Medication:dupilumab 300mg pen DIEUDONNE and Insurance: [facility] Insurance Type: [place] Medicaid Date PA Request Received: PA Submission Date: 03/05/2024 Faxed: Notes: faxed chart notes and PA form to [facility] on 03/05/2024 @ [phone]. Submitted by: MONI Phone: [phone] * Telephone Encounter - Eliza Espinoza - 01/18/2024 142 EDT Change Healthcare Downtime Documentation Medication Name: Dupixent Primary Payer: [facility] Secondary Payer: N/A Payer Affected: Primary Payer Eligibility Verification Date Completion: 01/18/2024 Eligibility Verification Result: Covered PDL/Formulary Review Completed on: PDL/Formulary Review Result: Referral Entered:Yes * Telephone Encounter - Eliza Espinoza - 01/18/2024 142 EDT Images from the original note were not included. * Telephone Encounter - Eliza Espinoza - 01/18/2024 142 EDT Images from the original note were not included. documented in this encounter Plan of Treatment Not on file documented as of this encounter Visit Diagnoses Diagnosis Dermatitis- Primary Contact dermatitis and other eczema, due to unspecified cause documented in this encounter Care Teams Inside Solar Sales Consultant Relationship Specialty Start Date End Date Unknown, Provider, PCP - General 06/24/15 documented as of this encounter
--- OUTSIDE RECORDS SUMMARY | 2024-06-03 11:07 | XMS_ITS | Encounter Summary ---
Author Organization [facility] Address [address] [place] [address] Care Team Providers Care Tying In Machine Operator Name Role Phone Unknown, Provider Primary Care Provider Encounter Details Date Type Department Care Team (Latest Contact Info) Description 03/13/2024 Specialty Pharmacy [facility]ty [facility]acy [address] [place] [address] Jeffrey Carty [facility] Refill Coordination Outreach for Dermatology Social History [...] as of this encounter Progress Notes * Anastasiia Pina - 03/13/2024 1557 EDT 03/16/2024 - 3 calls, no response, pushing outreach 1 week (initialsCD) documented in this encounter Plan of Treatment Not on file documented as of this encounter Visit Diagnoses Not on filedocumented in this encounter Care Teams Tying In Machine Operator Relationship Specialty Start Date End Date Unknown, Provider, PCP - General 06/24/15 documented as of this encounter
--- OUTSIDE RECORDS SUMMARY | 2024-06-03 11:07 | XMS_ITS | Referral Summary ---
Author Organization [facility] Address [address] [place] [address] Care Team Providers Care Outsole Caser Name Role Phone Unknown, Provider Primary Care Provider [phone] Encounters Date Type Department Care Team Description 05/09/2024 Specialty Pharmacy [facility] Specialty Pharmacy [address] [place] [address] Jeffrey Carty RPH Started Clinical Follow-up (2x annually) for Dermatology, Started Refill Coordination Outreach for Dermatology 05/07/2024 Telephone [facility] Pulmonology [address] [place] [address] Nita Johnson RN Medication Management 05/07/2024 18:53 EDT - 05/07/2024 23:59 EDT Hospital Encounter [facility] MRI [address] [place] [address] Migraine without status migrainosus, not intractable, unspecified migraine type; Neuropathy Discharge Disposition: Home or Self Care 04/11/2024 Specialty Pharmacy [facility] Specialty Pharmacy [address] [place] [address] Jeffrey Carty RPH Refill Coordination Outreach for Dermatology 04/04/2024 Telephone [facility] Infectious Disease [address] [place] [address] Adelaida Rose, LINA Results (O&P not run) 03/27/2024 Orders Only [facility] MRI [address] [place] [address] Mary Gupta 03/26/2024 Telephone [facility] Infectious Disease [address] [place] [address] Adelaida Rose RN Results; Provider Referred 03/26/2024 Orders Only [facility] Infectious Disease [address] [place], [place] [id number] Sandy Agee MD Migraine without status migrainosus, not intractable, unspecified migraine type (Primary Dx); Neuropathy 03/22/2024 11:00 EDT Office Visit [facility] Infectious Disease [address] [place], [place] [id number] Sandy Agee MD Skin lesions (Primary Dx); Urinary incontinence, unspecified type; Hair loss; Neuropathy; Migraine without status migrainosus, not intractable, unspecified migraine type; Abdominal cramping 03/13/2024 Specialty Pharmacy [facility] Specialty Pharmacy [address] [place] [address] Jeffrey Carty [facility] Refill Coordination Outreach for Dermatology 03/08/2024 14:00 EDT Initial consult [facility] Infectious Disease [address] [place], [place] [id number] Sandy Agee MD Skin lesions (Primary Dx); Urinary incontinence, unspecified type; Hair loss from Last 3 Months Allergies Active Allergy Reactions Criticality Noted Date [...] Problem Noted Date Diagnosed Date Dermatitis 01/18/2024 Social History Tobacco Use Types Packs/Day Years [...] Mass Index - - Plan of Treatment Not on file Procedures Procedure Name Priority Date/Time Associated Diagnosis [...] REGARDING THIS REPORT PLEASE CALL [facility] AT [phone] Narrative 05/07/2024 23:11 EDT PROCEDURE INFORMATION: Exam: [...] CONCERNS REGARDING THIS REPORT PLEASE CALL [facility] [phone] Sandy Agee MD IMG MRI ORDERABLES * (ABNORMAL) UA CHEMICAL & SEDIMENT + REFLEX TO CULTURE (03/22/2024 12:19 EDT) Color UA Yellow Colorless, Yellow 03/22/2024 16:53 EDT [facility] Clarity UA Clear Clear 03/22/2024 16:53 EDT [facility] Glucose UA Negative Negative mg/dL 03/22/2024 16:53 [facility] Bilirubin UA Negative Negative 03/22/2024 16:53 [facility] Ketones UA Negative Negative 03/22/2024 16:53 [facility] Specific [place], Urine 1.015 1.001 - 1.030 03/22/2024 16:53 [facility] Blood UA 3+(A) Negative 03/22/2024 16:53 [facility] Nitrite UA Negative Negative 03/22/2024 16:53 [facility] Leukocyte Esterase UA Negative Negative 03/22/2024 16:53 [facility] Protein UA Negative Negative mg/dL 03/22/2024 16:53 [facility] pH, UA 6.0 <8.5 03/22/2024 16:53 [facility] Urine RBC Count, Manual 11 - 50(A) 0 - 2 Cells/HPF 03/22/2024 16:53 [facility] Urine WBC Count 0 - 3 0 - 3 Cells/HPF 03/22/2024 16:53 [facility] Urine Squamous Count, Manual Few(A) None Seen Cells/HPF 03/22/2024 16:53 [facility] Urine Hyaline Cast Count, Manual <=10 <=10 Casts/LPF 03/22/2024 16:53 [facility] Urine Bacteria Count, Manual Few(A) None Seen Bacteria/HP F 03/22/2024 16:53 [facility] Urobilinogen UA 1.0 0.2-1.0 mg/dL mg/dL 03/22/2024 16:53 [facility] Urine URINE SPECIMEN OBTAINED BY CLEAN CATCH PROCEDURE / Unknown Urine Collect / Unknown 03/22/2024 12:19 EDT 03/22/2024 12:19 [facility] - 03/22/2024 16:53 EDT Urine Sediment Analysis results are unreliable on urines that are unrefrigerated for >2 hrs or refrigerated >8 hrs. NOTE: Reflex to Urine Culture test is not indicated based on Urine Sediment Analysis results. Sandy Agee MD URINALYSIS ORDERABLE S Performing Organization Address City/[facility]/ZIP Co de Phone Number [facility] [address] [place] [address] * SYPHILIS RPR SCREEN W/REFLEX (03/08/2024 14:59 EDT) [facility] Rapid Plasma Reagin Screen (RPR) Nonreactive Nonreactive 2024 5:44 EDT [facility] Blood VENOUS BLOOD / Unknown Venipuncture / Unknown 03/08/2024 14:59 EDT 03/08/2024 14:59 EDT Sandy Agee MD IMMUNOLOGY AND SEROL OGY ORDERABLES Performing Organization Address [facility]/ZIP Co de Phone Number [facility] [address] [place] [address] * HEPATITIS C AB W REFLEX TO HCV RNA BY PCR (03/08/2024 14:59 EDT) [facility] Hep C Antibody Negative Negative 03/08/2024 18:24 EDT [facility] Blood VENOUS BLOOD / Unknown Venipuncture / Unknown 03/08/2024 14:59 EDT 03/08/2024 14:59 EDT Sandy Agee MD CHEMISTRY & BLOOD GA S ORDERABLES Performing Organization Address [facility]/ZIP Co de Phone Number [facility] [address] [place] [id number] * (ABNORMAL) COMPLETE BLOOD COUNT AND DIFFERENTIAL (03/08/2024 14:59 EDT) [facility] WBC 9.99 4.00 - 12.40 K/cmm 03/08/2024 17:20 EDT [facility] RBC 4.43 3.86 - 5.04 M/cmm 03/08/2024 17:20 [facility] Hemoglobin 13.5 11.6 - 15.2 g/dL 03/08/2024 17:20 [facility] HCT 38.6 34.9 - 44.4 % 03/08/2024 17:20 [facility] MCV 87 81 - 98 fL 03/08/2024 17:20 [facility] MCH 30.5 26.7 - 33.3 pg 03/08/2024 17:20 [facility] MCHC 35.0 32.1 - 35.9 g/dL 03/08/2024 17:20 [facility] RDW-CV 12.7 <14.7 % 03/08/2024 17:20 [facility] RDW-SD 40.4 <50.4 fl 03/08/2024 17:20 [facility] PLT 288 141 - 377 K/cmm 03/08/2024 17:20 [facility] MPV 8.7(L) 9.5 - 12.7 fL 03/08/2024 17:20 [facility] % Neutrophils 49.0 % 03/08/2024 17:20 [facility] % Lymphocytes 43.8 % 03/08/2024 17:20 [facility] % Monocytes 4.8 % 03/08/2024 17:20 [facility] % Eosinophils 1.8 % 03/08/2024 17:20 [facility] % Basophils 0.5 % 03/08/2024 17:20 [facility] % Immature Grans 0.1 <0.9 % 03/08/20 17:20 [facility] Absolute Neutrophils 4.89 2.20 - 8.85 K/cmm 03/08/2024 17:20 [facility] Absolute Lymphocytes 4.38(H) 1.09 - 3.30 K/cmm 03/08/2024 17:20 [facility] Absolute Monocytes 0.48 0.10 - 0.80 K/cmm 03/08/2024 17:20 [facility] Absolute Eosinophils 0.18 0.03 - 0.61 K/cmm 03/08/2024 17:20 [facility] ABS Basophils 0.05 0.01 - 0.11 K/cmm 03/08/2024 17:20 [facility] Absolute Immature Grans 0.01 0.00 - 0.06 K/cmm 03/08/2024 17:20 [facility] Type of Differential: Auto 03/08/2024 17:20 [facility] Blood VENOUS BLOOD / Unknown Venipuncture / Unknown 03/08/2024 14:59 EDT 03/08/2024 14:59 EDT Sandy Agee MD PACKAGES & DNA PROBE ORDERABLES Performing Organization Address [facility]/ZIP Co de Phone Number [facility] [address] [place] [address] * HIV 1/2 ANTIGEN AND ANTIBODY, 4TH GENERATION (03/08/2024 14:59 EDT) [facility] HIV 1 and 2 Antibody/p24 Antigen, 4th Generation Negative Negative 03/08/2024 18:16 EDT [facility] Comment:If acute HIV-1 infec tion is suspected in a high risk patient, submit plasma specimen for HIV-1 RNA quantitation test. Blood VENOUS BLOOD / Unknown Venipuncture / Unknown 03/08/2024 14:59 EDT 03/08/2024 14:59 EDT Sandy Agee MD IMMUNOLOGY AND SEROL OGY ORDERABLES Performing Organization Address City/[facility]/ZIP Co de Phone Number [facility] [address] [place] [address] * (ABNORMAL) COMPREHENSIVE METABOLIC PANEL (CMP) (03/08/2024 14:59 EDT) Sodium 135(L) 136 - 145 mmol/L 03/08/2024 17:36 [facility] Potassium 4.4 3.5 - 5.0 mmol/L 03/08/2024 17:36 [facility] Chloride 102 96 - 110 mmol/L 03/08/2024 17:36 [facility] CO2 Total 26 22 - 32 mmol/L 03/08/2024 17:36 [facility] Glucose 95 70 - 99 mg/dl 03/08/2024 17:36 [facility] BUN 12 10 - 26 mg/dL 03/08/2024 17:36 [facility] Creatinine 0.69 0.52 - 1.04 mg/dL 03/08/2024 17:36 [facility] eGFR 110 >60 mL/min/1.7 3m2 03/08/2024 17:36 [facility] Total Protein 7.2 6.3 - 8.2 g/dL 03/08/2024 17:36 [facility] Albumin 4.2 3.4 - 4.9 g/dL 03/08/2024 17:36 [facility] Alkaline Phosphatase 97 38 - 126 U/L 03/08/2024 17:36 [facility] AST 20 15 - 46 U/L 03/08/2024 17:36 [facility] ALT 11 <35 U/L 03/08/2024 17:36 [facility] Bilirubin, Total 0.5 <1.4 mg/dL 03/08/20 17:36 [facility] Calcium 9.3 8.5 - 10.5 mg/dL 03/08/2024 17:36 [facility] Albumin/Globulin Ratio 1.4 1.0 - 2.5 03/08/2024 17:36 [facility] Anion Gap 7 5 - 14 mmol/L 03/08/2024 17:36 EDT [facility] Blood VENOUS BLOOD / Unknown Venipuncture / Unknown 03/08/2024 14:59 EDT 03/08/2024 14:59 EDT Sandy Agee MD CHEMISTRY & BLOOD GA S ORDERABLES [facility] [address] [place] [address] from Last 3 Months Care Teams Outsole Caser Relationship Specialty Start Date End Date Unknown, Provider, PCP - General 06/24/15
--- OUTSIDE RECORDS SUMMARY | 2024-06-03 11:07 | XMS_ITS | Encounter Summary ---
Author Organization [facility] Address [address] [place] [address] Care Team Providers Care Flaker Tender Name Role Phone Unknown, Provider Primary Care Provider [phone] Encounter Details Date Type Department Care Team (Late st Contact Info) Description 06/02/2021 Lab Requisition [facility] Pathology & Laboratory Medicine - [facility] [address] [place] [address] Outr Resulting Lab, Provider Social History Tobacco [...] Procedure Name Priority Date/Time Associated Diagnosis Comments ZZCOVID-19 TEST [facility] LAB PCR Today 06/01/2021 17:00 EDT COVID-19 TESTING Routine 06/01/2021 17:0 0 EDT documented in this encounter Results * COVID-19 TEST [facility] LAB PCR (06/01/2021 17:00 EDT) Swab ENTIRE NASOPHARYNX / Unknown 06/01/2021 17:00 EDT 06/02/2021 16:06 EDT Provider Outr Resulting Lab MICROBIOLOGY - GENERAL ORDERABLES Performing Organization Address City/[facility] Co de Phone Number [facility] [address] [place] [address] * (ABNORMAL) COVID-19 TESTING (06/01/2021 17:00 EDT) COVID-19 rt-PCR Result Positive( AA) Negative 06/03/2021 11:28 EDT [facility] Comment: This test has not been FDA cleared or approved. This test has been authorized by FDA under an EUA for use by authorized laboratories. This test has been authorized only for detection of nucleic acid from 2019-nCoV, not for any other viruses or pathogens. This test is only authorized for the duration of the declaration that circumstances exist justifying the authorization of emergency use of in vitro diagnostic tests for detection and/or diagnosis of 2019-nCoV under section 564(b)(1) of Act, 21 U.S.C ?? 360bbb-3(b) (1), unless the authorization is terminated or revoked sooner. Testing was performed using the levi SARS-CoV-2 assay ([employer] on the Levi 6800 System Performing Lab Levi [address] [facility] Lab 06/03/2021 11:28 EDT [facility] Swab 06/01/2021 17:0 0 EDT 06/02/2021 16:06 EDT Provider Outr Resulting Lab MICROBIOLOGY - GENERAL ORDERABLES Performing Organization Address City/[facility] Co de Phone Number [facility] [address] [place] [address] documented in this encounter Visit Diagnoses Not on filedocumented in this encounter Additional Health Concerns Infection Onset Date Last Indicated Resolved Time COVID-19 06/01/2021 06/01/2021 06/21/2021 22:1 5 EST documented as of this encounter Care Teams Flaker Tender Relationship Specialty Start Date End Date Unknown, Provider, PCP - General 06/24/15 documented as of this encounter
--- OUTSIDE RECORDS SUMMARY | 2024-06-03 11:07 | XMS_ITS | Encounter Summary ---
Author Organization [facility] Address [address] [place] [address] Care Team Providers Care Wire Wrapper Machine Operator Name Role Phone Unknown, Provider Primary Care Provider Encounter Details Date Type Department Care Team (Late st Contact Info) Description 07/03/2019 Lab Requisition [facility] Pathology & Laboratory Medicine - [address] [address] Unknown, Provider, Encounter for other general examination [...] Procedure Name Priority Date/Time Associated Diagnosis Comments CELIAC DISEASE PANEL Today 07/02/2019 15:30 EST HOLD SST Today 07/02/2019 15:30 EST Encounter for other general examination LH Today 07/02/2019 15:30 EST [facility] Today 07/02/2019 15:30 EST documented in this encounter Results * HOLD SST (07/02/2019 15:30 EST) Hold Hold 07/03/2019 17:15 EST [facility] Blood VENOUS BLOOD / Unknown 07/02/2019 15:30 EST 07/03/2019 16:01 EST Provider Unknown LAB INFO SERVICE AND SUPPORT & PHONE RESULT Performing Organization Address [facility] de Phone Number [facility] [address] [place] [address] * LH (07/02/2019 15:30 EST) Luteinizing Hormone 9.1 See Note mIU/mL 07/04/2019 9:38 EST [facility] Comment: NOTE: Female Reference Ranges: Pre-Pubertal: ?<6.0 mIU/mL Menstruating: Follicular Phase(-12 to -4 days: ??1.9 - 12.5 mIU/mL Midcycle(-3 to +2 days): ?8.7 - 76.3 mIU/mL Luteal Phase(+4 to +12 days): ? 0.5 - 16.9 mIU/mL Post Menopausal: 15.9 - 54.0 mIU/mL Blood VENOUS BLOOD / Unknown 07/02/2019 15:30 EST 07/03/2019 15:55 EST Provider Unknown CHEMISTRY & BLOOD GA S ORDERABLES Performing Organization Address [facility] Co de Phone Number [facility] [address] [place] [address] * FSH (07/02/2019 15:30 EST) FSH 8.9 See Note mIU/mL 07/04/2019 9:37 EST [facility] Comment: Female FSH Reference Ranges (>= 13 Menstruating): PHYSIOLOGICAL STATUS ? REFERENCE RANGE ? Follicular (-12 to -4 days): ?? 2.5 - 10.2 mIU/mL Midcycle (-3 to +2 days): ?3.4 - 33.4 mIU/mL Luteal (+4 to +12 days): ? 1.5 - 9.1 mIU/mL Postmenopausal: ?23.0 - 116.3 mIU/mL Reference Ranges for female patients <13 years old have not been established. Blood VENOUS BLOOD / Unknown 07/02/2019 15:30 EST 07/03/2019 15:55 EST Provider Unknown CHEMISTRY & BLOOD GA S ORDERABLES Performing Organization Address City/State/[facility] Co de Phone Number [facility] [address] [place] [address] * CELIAC DISEASE PANEL (07/02/2019 15:30 EST) Tissue Transglutaminase Antibody IGA <1.2 <4.0 U/mL 07/04/2019 15:18 EST [facility] Comment: A negative result may be due to IgA deficiency and does not rule out celiac disease. ? Negative: ??<4.0 U/mL ? Weak Positive: ??4.0 - 10.0 U/mL ? Positive: ??>10.0 U/mL Results were obtained with the [employer] QUANTA Lite R h-tTG IgA CHAYITO assay on the [employer] DSX. IgA 211 85 - 499 mg/dL 07/04/2019 15:18 EST [facility] Celiac Disease Interpretation Negative Serology. Celiac disease unlikely. Approximately 10% of patients with celiac disease are seronegative. Patients who are already adhering to a gluten-free diet may also be seronegative. If celiac disease is highly clinically suspected, referral to gastroenterology for additional evaluation is recommended. 07/04/2019 15:18 EST [facility] Blood VENOUS BLOOD / Unknown 07/02/2019 15:30 EST 07/03/2019 15:55 EST Provider Unknown IMMUNOLOGY AND SEROL EDU ORDERABLES Performing Organization Address City/State/[facility] Co de Phone Number [facility] [address] [place] [address] documented in this encounter Visit Diagnoses Diagnosis Encounter for other general examination documented in this encounter Additional Health Concerns Infection Onset Date Last Indicated Resolved Time COVID-19 06/01/2021 06/01/2021 06/21/2021 22:1 5 EST documented as of this encounter Care Teams Wire Wrapper Machine Operator Relationship Specialty Start Date End Date Unknown, Provider, PCP - General 06/24/15 documented as of this encounter
--- OUTSIDE RECORDS SUMMARY | 2024-06-03 11:07 | XMS_ITS | Encounter Summary ---
Author Organization [facility] Address [address] [place] [address] Care Team Providers Care Blender Helper Name Role Phone Unknown, Provider Primary Care Provider [phone] Encounter Details Date Type Department Care Team (Late st Contact Info) Description 09/03/2020 Lab Requisition [facility] Pathology & Laboratory Medicine - [facility] [address] [place] [address] Outr Resulting Lab, Provider Social History Tobacco [...] Procedure Name Priority Date/Time Associated Diagnosis Comments HEPATITIS C AB W REFLEX TO HCV RNA BY PCR Routine 09/03/2020 11:22 EST HEPATITIS A TOTAL ANTIBODY W REFLEX Routine 09/03/2020 11:22 EST HEPATITIS B SURFACE ANTIGEN Routine 09/03/2020 11:22 EST documented in this encounter Results * HEPATITIS B SURFACE ANTIGEN (09/03/2020 11:22 EST) Hep B Surface Ag Negative Negative 09/04/2020 9:13 EST [facility] Blood VENOUS BLOOD / Unknown 09/03/2020 11:22 EST 09/03/2020 16:34 EST Provider Outr Resulting Lab CHEMISTRY & BLOOD GAS ORDERABLES Performing Organization Address City/[facility]/ZIP Co de Phone Number [facility] [address] [place] [address] * HEPATITIS C AB W REFLEX TO HCV RNA BY PCR (09/03/2020 11:22 EST) Hep C Antibody Negative Negative 09/04/2020 10:10 EST [facility] Blood VENOUS BLOOD / Unknown 09/03/2020 11:22 EST 09/03/2020 16:34 EST Provider Outr Resulting Lab CHEMISTRY & BLOOD GAS ORDERABLES Performing Organization Address [facility] [[email or web address]] Co de Phone Number [facility] [address] [place] [address] * HEPATITIS A TOTAL ANTIBODY W REFLEX (09/03/2020 11:22 EST) Hepatitis A Antibody, Total Negative Negative 09/04/2020 10:21 EST [facility] Blood VENOUS BLOOD / Unknown 09/03/2020 11:22 EST 09/03/2020 16:34 EST Narrative [facility] - 09/04/2020 10:21 EST The result of this assay can be falsely elevated (Positive) due to the consumption of Biotin. Provider Outr Resulting Lab CHEMISTRY & BLOOD GAS ORDERABLES Performing Organization Address [facility] [[email or web address]] Co de Phone Number [facility] [address] [place] [address] documented in this encounter Visit Diagnoses Not on filedocumented in this encounter Additional Health Concerns Infection Onset Date Last Indicated Resolved Time COVID-19 06/01/2021 06/01/2021 06/21/2021 22:1 5 EST documented as of this encounter Care Teams Blender Helper Relationship Specialty Start Date End Date Unknown, Provider, PCP - General 06/24/15 documented as of this encounter
--- OUTSIDE RECORDS SUMMARY | 2024-06-03 11:07 | XMS_ITS | Encounter Summary ---
Author Organization [facility] Address [address] [place] [address] Care Team Providers Care Tool And Production Planner Name Role Phone Unknown, Provider Primary Care Provider [phone] Reason for Visit * Reason Onset Date Comments Medication Management 05/07/2024 Encounter Details Date Type Department Care Team (Late st Contact Info) Description 05/07/2024 Telephone [facility] Pulmonology [address] [facility], [place] [address] Nita Johnson, dump truck driver off highway Management Social History Tobacco Use Types Packs/Day Years [...] Dispensed Refills Start Date End Da te LORazepam (ATIVAN) 2 mg tablet One tablet by mouth 30 minutes prior to procedure 1 Tablet 05/07/2024 documented in this encounter Miscellaneous Notes * Telephone Encounter - Adelaida Rose, LINA - 05/07/2024 1515 EDT Rx called into pharmacy. Patient notified. Advised she have someone drive her home after the procedure. Medication can make her feel tired or loopy and she should not drive. Patient verbalized understanding, she has a car driver. * Telephone Encounter - Sandy Agee MD - 05/07/2024 1434 EDT Ok to give 2mg lorazepam by mouth 30 minutes prior to procedure. 1 dose. No refills. * Telephone Encounter - Adelaida Rose RN - 05/07/2024 1413 EDT Discussed with patient. She is super claustrophobic and has been very anxious about being in the MRI machine for 45 mins. She has never had an MRI before. She takes buspirone and sertraline daily for her anxiety. She has taken something in the past prior to a procedure but forgets what it was. Pharmacy [facility]. Patient notified Dr. Agee will review request and we'll call her back. * Telephone Encounter - Tessa Duncan - 05/07/2024 1408 EDT Pt returning Adelaida's call * Telephone Encounter - Nita Johnson RN - 05/07/2024 1024 EDT Pt LM asking for anti-anxiety pill to take pre- MRI which is this evening at 7pm. Please call pt back. She said she doesn't have a PCP. documented in this encounter Plan of Treatment Not on file documented as of this encounter Visit Diagnoses Not on filedocumented in this encounter Care Teams Tool And Production Planner Relationship Specialty Start Date End Date Unknown, Provider, PCP - General 06/24/15 documented as of this encounter
--- OUTSIDE RECORDS SUMMARY | 2024-06-03 11:07 | XMS_ITS | Encounter Summary ---
Author Organization [facility] Address [address] [place] [address] Care Team Providers Care Regional Wildlife Agent Name Role Phone Unknown, Provider Primary Care Provider [phone] Encounter Details Date Type Department Care Team (Latest Contact Info) Description 02/09/2024 Specialty Pharmacy [facility] [address] [place] [address] Jeffrey Carty RPH Initial Clinical Follow-up (by [...] Progress Notes * Jeffrey Carty RPH - 02/09/2024 1306 EDT Specialty Pharmacy Consultation: [facility] Dermatology Clinic Medication Management: Follow-up Consult Brii Domínguez (1980) Diagnosis: Dermatitis Therapy Start Date: 01/2024 Contact Method: Telephone Brii K Wasco is a 43 y.o. who was contacted in regard to Dupixent 300 mg pens. A review of the medication therapy was performed. All medication related questions and concerns were addressed. The specialty pharmacy staff will follow up with the patient 7-10 days prior to next refill. Allergies and Drug intolerance: Allergies Allergen Reactions Flagyl (As Hcl) Other - See Comments Environmental allergies Problem List: Patient Active Problem List Diagnosis Dermatitis Medication List: Current Outpatient Medications Medication Sig Dispense Refill buprenorphine-naloxone (SUBOXONE) 2-0.5 mg tablet, sublingual Place 1 Tablet under the tongue daily. Patient unsure of dosage busPIRone (BUSPAR) 5 mg tablet Take 1 Tablet by mouth 2 times daily. Patient unsure dosage dupilumab (DUPIXENT PEN) 300 mg/2 mL pen injector pen injector Inject 4 mL into the skin Once for 1dose. Then inject 300mg SC every 14 days starting day 15. 8 mL 0 dupilumab (DUPIXENT PEN) 300 mg/2 mL pen injector pen injector Inject 2 mL into the skin every 14 days. 12 mL 1 pantoprazole (PROTONIX) 20 mg tablet Take 2 Tablets by mouth daily. Unsure of dosage sertraline (ZOLOFT) 25 mg tablet Take 1 Tablet by mouth daily. Unsure dosage TACRolimus (PROTOPIC) 0.1 % ointment Apply topically to rash on face and eyelids twice daily as needed. May sting on first few applications. 100 g 5 triamcinolone (KENALOG) 0.025 % cream Apply topically 2 times daily. Patient unsure of dosage (Patient not taking: Reported on 01/18/2024) No current facility-administered medications for this visit. Pertinent Lab Values & Vitals: No results found for: K, BUN, CREATININE No results found for: ALT, AST, WBC, HGB, HCT, MCV, PLATELET Wt Readings from Last 3 Encounters: No data found for Wt There is no immunization history on file for this patient. Assessment and Recommendations: Current Medication Dosing/Route/Frequency: Dupixent 300 mg pens - inject one pen subcutaneous every14 day Appropriate Therapy: Yes Effective: Too soon to assess Current Affected Areas: Yes - entire body Improving Affected Areas: none reported Worsening Affected Areas: Yes - was late to last dose, did see initial improvement but now as she has late it is getting worse again, injecting again this Tuesday Patient-Reported Side Effects: none reported Recent Infections: none reported Counseling: Utilizing appropriate injection technique: Yes Rotation of Injection Sites: Yes Room Temperature Medication at Time of Injection: Yes Patient Goals: Patient's specific desired goal: reduction in BSA and itch Measured by: patient reported outcomes and provider evaluation Time-frame to meet goal: 3-4 months Is the patient on track to achieve goals of therapy? Yes Intervention(s): reviewed dosing Patient Satisfied with Therapy: Yes Jeffrey Carty, PharmD Ambulatory Pharmacist Clinician 02/21/2024 14:19 documented in this encounter Plan of Treatment Not on file documented as of this encounter Visit Diagnoses Not on filedocumented in this encounter Care Teams Regional Wildlife Agent Relationship Specialty Start Date End Date Unknown, Provider, PCP - General 06/24/15 documented as of this encounter
--- OUTSIDE RECORDS SUMMARY | 2024-06-03 11:07 | XMS_ITS | Encounter Summary ---
Author Organization [facility] Address [address] [place] [address] Care Team Providers Care Solutions Engineer Name Role Phone Unavailable Primary Care Provider Unavailabl e Encounter Details Date Type Department Care Team (Late st Contact Info) Description 08/24/2011 Results Only [facility] - [facility] ([facility]) [address] [place] [address] Breanne Foreman, [facility] [address] [place] [id number] Social History Tobacco Use Types Packs/Day Years Used Date Smoking Tobacco: Never Assessed Sex and Gender Information Value Date Recorded Sex Assigned at Not on file Gender Identity Not on file Sexual Orientation Not on file documented as of this encounter Plan of Treatment Not on file documented as of this encounter Procedures Procedure Name Priority Date/Time Associated Diagnosis Comments PAP TEST- RESULT ONLY Routine 08/24/2011 0:00 EST documented in this encounter Results * PAP TEST- RESULT ONLY (08/24/2011 0:00 EST) Pathology Report: CYTOPATHOLOGY REPORT Reports generated via electronic interface contain original data; however they are lacking the format of the original report. Caution should be taken when reading/interpreti ng unformatted reports. Name: ? BRII DOMÍNGUEZ ? Accession #: ? [id number] : ? 1980 (Age: 31) ??F ?Collect Date: ? 08/24/2011 Location: ? [facility] ? Receive Date: ? 08/25/2011 Provider: ?BREANNE FOREMAN RADIO MAINTAINER Copy to: ?CARISSA ELAINE CANCELLATION CLERK ? Specimen/Source: ?Pap Test, Cervix/Endocervix, ThinPrep Imaging System with manual evaluation Last Menstrual Period: ? 08/05/11 ? SPECIMEN ADEQUACY ? Satisfactory for Evaluation - transformation zone component present GENERAL CATEGORIZATION ? Negative for Intraepithelial Lesion or Malignancy INTERPRETATION ? Shift in christine present suggestive of bacterial vaginosis. ? Document reviewed and electronically signed by: ? HARISH Hughes(ASCP) ? Report Date: ??08/26/2011 14:13 End of Report IRENE ROY 08/24/2011 08/25/2011 Breanne Foreman RADIO MAINTAINER PATHOLOGY ORDERABLES [facility] [address] [place] [address] documented in this encounter Visit Diagnoses Not on filedocumented in this encounter
--- OUTSIDE RECORDS SUMMARY | 2024-06-03 11:07 | XMS_ITS | Encounter Summary ---
[place] [address] Care Team Providers Care Boat Officer Name Role Phone Haroldo Burrell Primary Care Provider [phone] Reason for Visit * Reason Onset Date Comments Prior Authorization 03/11/2022 fexofenadine (JEFFERY) 180 mg Tablet Encounter Details Date Type Department Care Team (Late st Contact Info) Description 03/11/2022 [place] [address] Chaim Restrepo, JOAQUÍN Prior Authorization (fexofenadine (JEFFERY) 180 mg Tablet //) Social History Tobacco Use Types Packs/Day Years Used Date Smoking Tobacco: Every Day Cigarettes Smokeless Tobacco: Never Sex and Gender Information Value Date Recorded Sex Assigned at Not on file Gender Identity Not on file Sexual Orientation Not on file documented as of this encounter Miscellaneous Notes * Telephone Encounter - Saray France CCMA - 03/12/2022 11:15 AM EDT Medication [place] [address] DENIED: fexofenadine (JEFFERY) 180 mg Tablet Case/Reference #: [id number] Additional Information from Insurance: Must try and fail or have allergy or side effect to Loratadine and Cetirizine * Telephone Encounter - Chaim Restrepo CCMA - 03/11/2022 4:19 PM EDT Medication Prior Authorization Request received via: Pharmacy Patient: Brii Domínguez Patient : 1980 Insurance Company: [place] Medicaid Sent via: Bunch [place]: [id number] Physician: Monica Lindsey MD Medication Requested: fexofenadine (JEFFERY) 180 mg Tablet Frequency/Sig: Take 1 tablet by mouth daily. Disp: 90 Refills: 3 Currently taking: No Diagnosis for this medication: Environmental and seasonal allergies (J30.89) Prior medications trialed in this patient: Additional Notes: documented in this encounter Plan of Treatment Not on file documented as of this encounter Visit Diagnoses Not on filedocumented in this encounter Care Teams Boat Officer Relationship Specialty Start Date End Date Haroldo Burrell PA [address] [place] [address] PCP - General Internal Medicine 01/20/22 10/23/23 documented as of this encounter
--- OUTSIDE RECORDS SUMMARY | 2024-06-03 11:07 | XMS_ITS | Encounter Summary ---
Author Organization [facility] Address [address] [place] [address] Care Team Providers Care Chicle Grinder Feeder Name Role Phone Unknown, Provider Primary Care Provider [phone] Reason for Referral * Consult (Urgent) - Authorized Specialty Diagnoses / Procedures Referred By [facility] Referred To Contact Pharmacy Diagnoses Dermatitis Prurigo nodularis Andrew Sánchez MD [address] [facility], [address] [place] [address] [facility] [address] [place] [id number] Referral ID Status Reason Start Date Expiration Date Visits Requested Visits Authorized [id number] Authorized Specialty Services Required 01/18/2024 1 1 Question Answer PA Type: New Medication to be Prior Authorized: dupilumab for dermal hypersensitivity with prurigo nodularis; failed triamcinolone and tacrolimus Comments The purpose of this request is to inform precertification staff that the requested service needs to be reviewed for prior-authorization. Reason for Visit * Reason Comments Follow-up Hair- white dots on hair. Feet- black spots on feet that accumulate at the end of the day in socksSlow healing, painful sores on arms and legs, applying protopic. Did not receive triamcinolone from pharmacy Encounter Details Date Type Department Care Team (Late st Contact Info) Description 01/18/2024 13:00 EDT Office Visit [facility] Dermatology [address] [id number] Andrew Sánchez MD [address] [facility], [facility], [address] [place] [address] Dermatitis (Primary Dx); Prurigo nodularis Social History Tobacco Use Types Packs/Day Years [...] Progress Notes * Andrew Sánchez MD - 01/18/2024 1300 EDT Dermatology Outpatient Visit Note Chief Complaint Patient presents with Follow-up Hair- white dots on hair. Feet- black spots on feet that accumulate at the end of the day in socks Slow healing, painful sores on arms and legs, applying protopic. Did not receive triamcinolone frompharmacy Dermatologic History: No specialty comments available. Last Dermatology Clinic Visit: 11/29/23 SUBJECTIVE: Brii Domínguez is a 43 y.o. female who presents for follow-up for a rash on her body. -She reports that the triamcinolone and tacrolimus have not been helpful. She continues to have itchy sores on her arms and legs. -She also reports some black spots in glitter on her feet. She is worried that this might be comingout of her skin. -She also notes that her hair frequently moves on its own which is very worrisome for her. -Her rash is extremely stressful for her. She cleans people's homes for living and is worried that she has something that is contagious. -She is not able to afford an ostrich farmer but does not feel that she has bugs in her home. However, she does report a mold like substance on her close and furniture. She has not had this evaluated by an expert. OBJECTIVE: Focused cutaneous examination was performed. -Arms and legs with numerous crusted excoriations as well as erythematous hyperkeratotic papules -There were small pieces of dirt as well as glitter on the patient's feet ASSESSMENT & PLAN: Dermal hypersensitivity: Prurigo nodularis: -Biopsy on 11/29/2023 demonstrated dermal hypersensitivity and prurigo nodularis. Did not respond totopicals. Discussed dupilumab treatment, and patient is agreeable to this treatment. Prior authorization placed today. -Recommend that she contact the health department to see if she can get any assistance in evaluating her home for mold. -Again reiterated that I do not believe her condition is infectious in nature, and she does not appear to have a contagious condition. -In regards to the material on her feet that she is noticing, I explained that this appears to be harmless dirt and glitter that she is likely picked up from her environment. Explained that it is normal for the hair to move as the air is always moving. Patient was not accepting of these explanations. -Recommend maximizing her antianxiety treatments as much as possible as this condition is very distressing for her. FOLLOW UP: Return in about 3 months (around 04/19/2024) for prurigo (40 min). Andrew Sánchez MD 01/23/2024 12:09 documented in this encounter Plan of Treatment Scheduled Referrals Name Type Priority Associated Diagnoses Orde r Schedule AMB CONS/FOLLOW UP SPECIALTY PHARMACY Outpatient Referral Urgent Dermatitis Prurigo nodularis Expected: 01/20/2024 (Approximate), Expires: 01/17/2025 documented as of this encounter Visit Diagnoses Diagnosis Dermatitis- Primary Contact dermatitis and other eczema, due to unspecified cause Prurigo nodularis Lichenification and lichen simplex chronicus documented in this encounter Care Teams Chicle Grinder Feeder Relationship Specialty Start Date End Date Unknown, Provider, PCP - General 06/24/15 documented as of this encounter
--- OUTSIDE RECORDS SUMMARY | 2024-06-03 11:07 | XMS_ITS | Encounter Summary ---
Author Organization [facility] Address [address] [place] [address] Care Team Providers Care Lottery Office Manager Name Role Phone Unknown, Provider Primary Care Provider [phone] Encounter Details Date Type Department Care Team (Latest Contact Info) Description 01/18/2024 Specialty Pharmacy [facility] [address] [place] [address] Jeffrey Carty RPH Set up initial fill for Dermatology, Patient Education for Dermatology, Prospective Review for Dermatology Social History Tobacco Use Types [...] Notes * Jeffrey Carty RPH - 01/18/2024 1455 EDT Specialty Pharmacy Consultation: [facility] Dermatology Clinic Medication Management: New Therapy Consult Brii Tyesha Sang (1980) Diagnosis: Dermatitis Therapy Start Date: 01/23/24 Contact Method: Telephone Brii Domínguez is a 43 y.o. who was contacted in regard to Dupixent 300 mg pens. A review of the medication therapy was performed. All medication related questions and concerns were addressed. The specialty pharmacy staff will follow up with the patient 7-10 days prior to next refill. Recommendations and Counseling: Brii Domínguez was contacted for a review of Dupixent for the treatment of dermatitis. Patient waseducated on precautions with Dupixent including anaphylaxis/hypersensitivity. Educated patient on the potential side effects of Dupixent including injection site reaction, eye irritation including con junctivitis, and URTI. The patient was instructed to call the clinic if eye irritation occurs to discuss treatment. Live vaccines should be avoided with this medication and the patient is aware to contact the clinic if a live vaccine is recommended. Discussed with patient that it may take 3-4 months to experience the full benefit of Dupixent. A review of dosing, storage, and administration was completed. Patient was educated on the dosing schedule. Patient was made aware that Dupixent must be stored in the refrigerator and remains stable at room temperature for 14 days. Patient was advised on proper site rotation, site sterilization, and allowing the medication to reach room temperature prior to injection. Patient was encouraged to schedule an injection teaching appointment if they prefer to have first injection completed with medical oversight and was directed to view additional online video resources if needed. Patient will be provided with a sharps container and disposal of Dupixent was discussed. The patient was given [facility] Specialty Pharmacy contact information for any questions. Allergies and Drug intolerance: Allergies Allergen Reactions Flagyl (As Hcl) Other - See Comments Environmental allergies Problem List: Patient Active Problem List Diagnosis Dermatitis Medications: Current Outpatient Medications Medication Sig Dispense Refill [...] this visit. Pertinent Lab Values & Vitals: None available at this time, none required for this treatment. Assessment and Recommendations: Current Medication Dosing/Route/Frequency: Dupixent 300 mg pens - inject two pens subcutaneous onceon day 1, then one pen every 14 days thereafter Appropriate Therapy: Yes Current Affected Areas: entire body Recent Skin Exacerbations/Flaring: Yes - legs Recent Topical Corticosteroid Use: No Expected Outcome: reduction in BSA and itch Patient's goals: Patient's specific desired goal: reduction in BSA and pain Measured by: patient reported outcomes and provider evaluation Time-frame to meet goal: 3-4 months Pharmacist follow-up needed: Yes - 6-week follow-up Jeffrey Carty, PharmD Ambulatory Pharmacist Clinician 01/19/2024 14:33 documented in this encounter Plan of Treatment Not on file documented as of this encounter Visit Diagnoses Not on filedocumented in this encounter Care Teams Lottery Office Manager Relationship Specialty Start Date End Date Unknown, Provider, PCP - General 06/24/15 documented as of this encounter
--- OUTSIDE RECORDS SUMMARY | 2024-06-03 11:07 | XMS_ITS | Encounter Summary ---
Author Organization [facility] Address [address] [place] [address] Care Team Providers Care Internal Communications Intern Name Role Phone Unknown, Provider Primary Care Provider [phone] Reason for Referral * Consult (Routine/Next Available) - Authorization Not Required Specialty Diagnoses / Procedures Referred By Contac t Referred To Contact Diagnoses Migraine without status migrainosus, not intractable, unspecified migraine type Neuropathy Sandy Agee MD [address] [place] [address], [address] [place] [address] [facility] [address] [place] [id number] Referral ID Status Reason Start Date Expiration Date Visits Requested Visits Authorized [id number] Authorization Not Required Specialty Services Required 4 1 1 Question Answer Reason for Request: Change in migraine pattern, new neuropathy Context of referral: New Problem Reason for referral: Unsure Has patient had a previous OUTSIDE of [facility] neurology evaluation, neuroimaging (MRI or CT of brain or spine) or electrodiagnostic testing (EMG, NCS, EEG)? Unsure * Radiology Services (Routine/Next Available) - Authorization Not Required Specialty Diagnoses / Procedures Referred By Contac t Referred To Contact Radiology Diagnoses Migraine without status migrainosus, not intractable, unspecified migraine type Neuropathy Procedures MR HEAD W WO CONTRAST Sandy Agee MD [address] [facility], [address] [place] [address] [facility] Referral ID Status Reason Start Date Expiration Date Visits Requested Visits Authorized [id number] Authorization Not Required 03/26/2024 1 1 Reason for Visit * Reason Onset Date Comments Orders (Non Pre-visit) 03/26/2024 Encounter Details Date Type Department Care Team (Late st Contact Info) Description 03/26/2024 Orders Only [facility] Infectious Disease [address] [place] [address], [facility] [place] [address] Sandy Agee MD [address] [place] [address], [address] [address] Migraine without status migrainosus, not intractable, unspecified migraine type (Primary Dx); Neuropathy Social History Tobacco Use Types Packs/Day Years [...] Associated Diagnoses Order Schedule AMB CONS/FOLLOW UP NEUROLOGY Outpatient Referral Routine/Next Available Migraine without status migrainosus, not intractable, unspecified migraine type Neuropathy Expected: 04/26/2024 (Approximate), Expires: 03/26/2025 documented as of this encounter Results * MR HEAD W WO CONTRAST (05/07/2024 19:54 EDT) Anatomical Region Laterality Modality Head Magnetic Resonan ce 05/07/2024 19:2 3 EDT Impressions 05/07/2024 23:11 EDT No acute intracranial findings. THIS DOCUMENT HAS BEEN ELECTRONICALLY SIGNED BY ASHOK GRAHAM MD FOR ANY QUESTIONS OR CONCERNS REGARDING THIS REPORT PLEASE CALL [facility] AT [phone] [facility] 05/07/2024 23:11 EDT PROCEDURE INFORMATION: Exam: MR [...] CONCERNS REGARDING THIS REPORT PLEASE CALL [facility] [phone] Sandy Agee MD IMG MRI ORDERABLES documented in this encounter Visit Diagnoses Diagnosis Migraine without status migrainosus, not intractable, unspecified migraine type- Primary Neuropathy Mononeuritis of unspecified site Migraine without status migrainosus, not intractable, unspecified migraine type Neuropathy Mononeuritis of unspecified site documented in this encounter Care Teams Internal Communications Intern Relationship Specialty Start Date End Date Unknown, Provider, PCP - General 06/24/15 documented as of this encounter
--- OUTSIDE RECORDS SUMMARY | 2024-06-03 11:07 | XMS_ITS | Encounter Summary ---
Author Organization [facility] Address [address] [place] [address] Care Team Providers Care Cartographic Engineer Name Role Phone Unknown, Provider Primary Care Provider [phone] Reason for Referral * Laboratory Services (Routine/Next Available) - New Request Specialty Diagnoses / Procedures Referred By Contac t Referred To Contact Diagnoses Abdominal cramping Procedures OVA AND PARASITE Sandy gAee MD [address] [facility], [address] [place] [address] Referral ID Status Reason Start Date Expiration Date V isits Requested Visits Authorized [id number] New Request 03/22/2024 1 1 * Laboratory Services (Routine/Next Available) - New Request Specialty Diagnoses / Procedures Referred By Contac t Referred To Contact Diagnoses Abdominal cramping Procedures KATHRINE AND PARASITE Sandy Agee MD [address] [facility], [address] [place] [address] Referral ID Status Reason Start Date Expiration Date V isits Requested Visits Authorized [id number] New Request 03/22/2024 1 1 * Laboratory Services (Routine/Next Available) - New Request Specialty Diagnoses / Procedures Referred By Contac t Referred To Contact Diagnoses Abdominal cramping Procedures OVA AND PARASITE Sandy Agee MD [address] [facility], [address] [place] [address] Referral ID Status Reason Start Date Expiration Date V isits Requested Visits Authorized [id number] New Request 03/22/2024 1 1 Reason for Visit * Reason Comments Follow-up Things are horrible, everytime skin touches water its painful, stomach has also been cramping Encounter Details Date Type Department Care Team (Late st Contact Info) Description 03/22/2024 11:00 EDT Office Visit [facility] Infectious Disease [address] [facility], [facility] [place] [address] Sandy Agee MD [address] [facility], [address] [place] [address] Skin lesions (Primary Dx); Urinary incontinence, unspecified type; Hair loss; Neuropathy; Migraine without status migrainosus, not intractable, unspecified migraine type; Abdominal cramping Social History Tobacco Use Types Packs/Day Years [...] this encounter Patient Instructions * Patient Instructions* Sandy Agee MD - 03/22/2024 11:00 EDT 3 stool collections on different days - at [facility]. Collect the sample after cramping and with the dark mucus. Will test for ova and parasites. I will discuss with Neurology to see if a referral versus further testing makes sense going forward. documented in this encounter Progress Notes * Sandy Agee MD - 03/22/2024 1100 EDT Images from the original note were not included. INFECTIOUS DISEASE OUTPATIENT FOLLOW UP VISIT Patient name: Brii Domínguez Today's date: 03/22/24 HPI: Brii Domínguez is a 44 y.o. who is following up for possible parasitic infection. I saw her for an initial consult on 03/08/24 - see that note for full history. She is here today for a more thorough exam as well as discussion about next steps. Today, she says that she talked to the real estate officer, whom she says was very rude to her - said he was going to send someone to inspect the house but hasn't heard anything. Also spoke to a housing adovacte. She spoke to her landlord but there were issues about where the mold was. She is on chronic suboxone, as a side note. But she was on that long before her current skin issuesbegan. Financially can't leave her apartment, she doesn't have a place to go. She does have lots ofphotos of her skin and her dog's skin on her phone. Has had some low abdominal cramping - paralyzing. Gets sharp pains, were on the L side, but now on both sides. Every time that happens, she's wiping black mucus when she goes to the bathroom. She hashad some weight loss - feels sick all the time and not eating much. Says her partner has skin issues too - she tried to get him to come today but he didn't. Photos of her dog - lots of white flakes on her hair. Spots on her belly that didn't used to be there. Clusters of brown lesions, black spots on her nipples. Excessive hair loss. The dog is 11 years old. Sneezing and red eyes all the time as well. She's been struggling with her eyes too - just wentto the eye doctor who said her eyes are ok. Also has an Englsih Bulldog - he's staying at her boyfriend's house currently. We discussed her current complaints of specks coming out of her feet. The glitter specks are especially troubling. She says her hair is moving on its own - in water especially. She does note that hereosinophils used to be high because of her h/o eosinophilic esophagitis - now normal. Also having worse migraines - waking up with them. And still having the neuropathy that she mentioned at her last visit. She doesn't feel like any workup has been done. Physical Exam Vital Signs: BP 118/84 (BP Cuff Location: Right arm, BP Patient Position: Sitting, BP Cuff Sizes: Adult, regular) Pulse 86 Temp 36.5 ??C (97.7 ??F) (Temporal) SpO2 99% General: NAD Skin: see photos HEENT: AT/NC. Pulm: No cough, no increased work of breathing Abd: non-distended Ext: Unremarkable Neuro: Non-focal Psych: Appropriate Medications: Not currently on antibiotics Has been treated with Ivermectin, topical Permethrin Multiple treatments from Derm - topical tacrolimus, dupilumab Labs: Lab Results Component Value Date HGB 13.5 03/08/2024 MCH 30.5 03/08/2024 MCHC 35.0 03/08/2024 MCV 87 03/08/2024 PLT 288 03/08/2024 RBC 4.43 03/08/2024 Lab Results Component Value Date NA 135 (L) 03/08/2024 K 4.4 03/08/2024 CL 102 03/08/2024 CO2 26 03/08/2024 ANIONGAP 7 03/08/2024 BUN 12 03/08/2024 CREATININE 0.69 03/08/2024 CALCGFR 110 03/08/2024 Lab Results Component Value Date Albumin 4.2 03/08/2024 ALT 11 03/08/2024 AST 20 03/08/2024 Alkaline Phosphatase 97 03/08/2024 Total Protein 7.2 03/08/2024 Bilirubin, Total 0.5 03/08/2024 RPR: 03/08/24 - NR HIV screen: 03/08/24 - neg HCV Ab: 03/08/24 - neg Micro: None in our system Pathology: Skin biopsy: 11/29/23 - Final Diagnosis [...] are not identified. Radiology: None in our system Assessment and Plan: 44 y.o. female with h/o smoking, eosinophilic esophagitis, and anxiety who has had various skin andother symptoms since 07/2023. 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 She also has various other complaints - hair loss, urinary symptoms, hair color changes, cramping/abdominal pain with dark mucus in BMs, increasing migraines, neuropathy, weight loss, etc. We spent 60+ minutes during the visit today looking at various skin/hair samples under the microscope together. I could not appreciate anything other than clumps of skin cells and normal hair shafts with possibly some skin cells adherent to the surface. Nothing moving or parasite-looking. However, she does have some concerning symptoms which I would like to address as below. Cramping and dark mucus, once or twice a week - I think it's reasonable to get stool O+P x 3. Especially with the h/o eosinophilia and the recent weight loss. Change in chronic migraines, etc I will reach out to Neurology to see if it makes sense to do an Econsult versus a referall for her migraines, nerve hypersensitivity, neuropathy, brain fog. And I'll see if they want any imaging donebefore they see her. Urinary complaints - I'll check a UA today as well given her new incontinence and cramping. Other Orders Placed This Visit Procedures OVA AND PARASITE OVA AND PARASITE OVA AND PARASITE UA Chemical & Sediment + Reflex to Culture It has been a pleasure seeing Brii Domínguez in clinic today. Sandy Agee MD, [facility] [place] [facility] Infectious Disease Office: [phone] I spent a total of 75 minutes on the date of this encounter meeting with the patient and reviewing documentation/coordinating care as described in the above note. No procedures were performed at the time of the visit. documented in this encounter Plan of Treatment Scheduled Orders Name Type Priority Associated Diagnoses Orde r Schedule OVA AND PARASITE Microbiology Routine Abdominal cramping Expected: 03/23/2024 (Approximate), Expires: 03/22/2025 OVA AND PARASITE Microbiology Routine Abdominal cramping Expected: 03/23/2024 (Approximate), Expires: 03/22/2025 OVA AND PARASITE Microbiology Routine Abdominal cramping Expected: 03/23/2024 (Approximate), Expires: 03/22/2025 documented as of this encounter Procedures Procedure Name Priority Date/Time Associated Diagnosis Comments URINE CHEMICAL (DIP) & SEDIMENT (MICRO) WITH REFLEX TO CULTURE Routine 03/22/2024 12:19 EDT Urinary incontinence, unspecified type documented in this encounter Results * (ABNORMAL) UA CHEMICAL & SEDIMENT + REFLEX TO CULTURE (03/22/2024 12:19 EDT) Color UA Yellow Colorless, Yellow 03/22/2024 16:53 [facility] Clarity UA Clear Clear 03/22/2024 16:53 [facility] Glucose UA Negative Negative mg/dL 03/22/2024 16:53 [facility] Bilirubin UA Negative Negative 03/22/2024 16:53 [facility] Ketones UA Negative Negative 03/22/2024 16:53 [facility] Specific [place], Urine 1.015 1.001 - 1.030 03/22/2024 16:53 [facility] Blood UA 3+(A) Negative 03/22/2024 16:53 [facility] Nitrite UA Negative Negative 03/22/2024 16:53 [facility] Leukocyte Esterase UA Negative Negative 03/22/2024 16:53 [facility] Protein UA Negative Negative mg/dL 03/22/2024 16:53 [facility] pH, UA 6.0 <8.5 03/22/2024 16:53 [facility] Urine RBC Count, Manual 11 - 50(A) 0 - 2 Cells/HPF 03/22/2024 16:53 [facility] Urine WBC Count 0 - 3 0 - 3 Cells/HPF 03/22/2024 16:53 [facility] Urine Squamous Count, Manual Few(A) None Seen Cells/HPF 03/22/2024 16:53 [facility] Urine Hyaline Cast Count, Manual <=10 <=10 Casts/LPF 03/22/2024 16:53 [facility] Urine Bacteria Count, Manual Few(A) None Seen Bacteria/HP F 03/22/2024 16:53 [facility] Urobilinogen UA 1.0 0.2-1.0 mg/dL mg/dL 03/22/2024 16:53 [facility] Urine URINE SPECIMEN OBTAINED BY CLEAN CATCH PROCEDURE / Unknown Urine Collect / Unknown 03/22/2024 12:19 EDT 03/22/2024 12:19 [facility] - 03/22/2024 16:53 T Urine Sediment Analysis results are unreliable on urines that are unrefrigerated for >2 hrs or refrigerated >8 hrs. NOTE: Reflex to Urine Culture test is not indicated based on Urine Sediment Analysis results. Sandy Agee MD URINALYSIS ORDERABLE S [facility] [address] [place] [phone] documented in this encounter Visit Diagnoses Diagnosis Skin lesions- Primary Urinary incontinence, unspecified type Hair loss Alopecia, unspecified Neuropathy Mononeuritis of unspecified site Migraine without status migrainosus, not intractable, unspecified migraine type Abdominal cramping Abdominal pain, unspecified site documented in this encounter Care Teams Cartographic Engineer Relationship Specialty Start Date End Date Unknown, Provider, PCP - General 06/24/15 documented as of this encounter
--- OUTSIDE RECORDS SUMMARY | 2024-06-03 11:07 | XMS_ITS | Encounter Summary ---
[facility] [place] [address] Care Team Providers Care Cartridge Gauger Name Role Phone Unknown Primary Care Provider Unavailabl e Encounter Details Date Type Department Care Team (Latest Contact Info) Description 10/30/2023 Travel Social History Tobacco Use Types Packs/Day [...] on filedocumented in this encounter Care Teams Cartridge Gauger Relationship Specialty Start Date End Date Unknown None PCP - General 10/24/23 10/31/23 documented as of this encounter
--- OUTSIDE RECORDS SUMMARY | 2024-06-03 11:08 | XMS_ITS | Encounter Summary ---
[place] [address] Care Team Providers Care Crystalizer Operator Name Role Phone Jennifer Barrera MD Primary Care Provider [phone] Reason for Visit * Reason Onset Date Comments Reminder Appointment 04/28/2021 Encounter Details Date Type Department Care Team (Late st Contact Info) Description 04/28/2021 Telephone [place] [address] Shey Macedo CMA GASTROENTEROLOGY DEPT Reminder Appointment Social History Tobacco Use Types Packs/Day Years Used Date Smoking Tobacco: Never Assessed Sex and Gender Information Value Date Recorded Sex Assigned at Not on file Gender Identity Not on file Sexual Orientation Not on file documented as of this encounter Miscellaneous Notes * Telephone Encounter - Shey Macedo CMA - 04/28/2021 10:53 AM EDT Called patient to review medications and allergies for their upcoming gastroenterology Type of Appointment: Telehealth appointment. Reach Patient during MA Check: No, Left Message Notes for the provider: Notes for the nurse: documented in this encounter Plan of Treatment Not on file documented as of this encounter Visit Diagnoses Not on filedocumented in this encounter Care Teams Crystalizer Operator Relationship Specialty Start Date End Date Jennifer Barrera MD [facility] [address] [place], [place] [id number] PCP - General Family Medicine 03/25/21 01/19/22 documented as of this encounter
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
--- OUTSIDE RECORDS SUMMARY | 2024-06-03 11:08 | XMS_ITS | Encounter Summary ---
[place] [address] Care Team Providers Care Coding Specialist Home Health Name Role Phone Jennifer Barrera MD Primary Care Provider [phone] Encounter Details Date Type Department Care Team (Late st Contact Info) Description 04/27/2021 Tele[place] [id number] [facility] Social History Tobacco Use Types Packs/Day Years Used Date Smoking Tobacco: Never Assessed Sex and Gender Information Value Date Recorded Sex Assigned at Not on file Gender Identity Not on file Sexual Orientation Not on file documented as of this encounter Miscellaneous Notes * Telephone Encounter - [facility] - 04/27/2021 3:16 PM EDT The GI Telehealth Educate Team attempted to contact patient to check their readiness for their upcoming telehealth visit in GI. We spoke to the patient to confirm the details of their upcoming visit. [facility] Patient Experience Navigator Section of Gastroenterology and Hepatology documented in this encounter Plan of Treatment Not on file documented as of this encounter Visit Diagnoses Not on filedocumented in this encounter Care Teams Coding Specialist Home Health Relationship Specialty Start Date End Date Jennifer Barrera MD [address] [place] [address] PCP - General Family Medicine 03/25/21 01/19/22 documented as of this encounter
--- OUTSIDE RECORDS SUMMARY | 2024-06-03 11:08 | XMS_ITS | Encounter Summary ---
[place] [address] Care Team Providers Care Tile Inspector Name Role Phone Haroldo Burrell Primary Care Provider [phone] Reason for Referral * Consultation (Routine) - Closed Specialty Diagnoses / Procedures Referred By Contac t Referred To Contact Dermatology Diagnoses Rash Monica Lindsey MD [facility] [place] [address] [facility] Dermatology [address] [place] [address] Referral ID Status Reason Start Date Expiration Date V isits Requested Visits Authorized [id number] Closed Consult, Test & Treat 01/20/2022 01/20/2023 3 3 Reason for Visit * Consultation (Routine) - Closed Specialty Diagnoses / Procedures Referred By Contac t Referred To Contact Allergy Diagnoses NEW DX EOSINOPHILIC ESOPHAGITIS Sebastián Flores MD [address] [place] [address] [facility] Allergy [address] [place] [id number] Referral ID Status Reason Start Date Expiration Date V isits Requested Visits Authorized [id number] Closed Consult, Test & Treat [facility] PCP Updated and/or Approved 03/16/2021 07/16/2023 6 6 Encounter Details Date Type Department Care Team (Late st Contact Info) Description 01/20/2022 10:30 AM EDT Office Visit [facility] at [facility] [place] [address] Monica Lindsey MD [facility] [place] [address] Rash; Chronic allergic rhinitis; Eosinophilic esophagitis Social History Tobacco Use Types Packs/Day Years Used Date Smoking Tobacco: Every Day Smokeless Tobacco: Never Sex and Gender Information Value Date Recorded Sex Assigned at Not on file Gender Identity Not on file Sexual Orientation Not on file documented as of this encounter Last Filed Vital Signs Vital Sign Reading Time Taken Comments Blood Pressure 130/81 01/20/2022 10:58 AM EDT Pulse 107 01/20/2022 10:58 AM EDT Temperature - - Respiratory Rate - - Oxygen Saturation 98% 01/20/2022 10:58 AM EDT Inhaled Oxygen Concentration - - Weight 63.1 kg (139 lb 1.6 oz) 01/20/2022 10:58 AM EDT Height - - Body Mass Index - - documented in this encounter Patient Instructions * Patient Instructions* Monica Lindsey MD - 01/20/2022 11:34 AM EDT Stop antihistamines 7 days prior to skin testing documented in this encounter Progress Notes * Monica Lindsey MD - 01/20/2022 10:30 AM EDT Images from the original note were not included. [facility] Section of Allergy and Clinical Immunology Date of Service: 01/20/22 Primary Care Provider: Jennifer Barrera MD Patient Age: 41 y.o. 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 She has been taking pantaprazole 40 mg twice a day. She also has a history of rashes on her arms and hands for weeks. Due to itch, she uses hydroxyzineas needed, used a few days ago. She showed me a picture taken March 04 on palms bumps and redness. She reports dysphagia to solids and globus sensation for approximately. Food bolus will eventually go down. She reports hiccups and sneezing fits. Outpatient Medications Marked as Taking for the 01/20/22 encounter (Office Visit) with Monica Lindsey MD Medication Sig Dispense Refill ??? cetirizine (ZyrTEC) 10 mg Tablet Take 10 mg by mouth daily. ??? dextroamphetamine-amphetamine (ADDERALL XR) 10 mg Capsule, Sust. Release 24 hr Take 10 mg by mouth daily. ??? hydrOXYzine (Atarax) 25 mg Tablet Take 25 mg by mouth as needed. ??? sertraline (ZOLOFT) 100 mg Tablet TAKE ONE TABLET BY MOUTH EVERY DAY ??? Suboxone 8-[address] ONE FILM UNDER THE TONGUE EVERY MORNING FOR 14 DAYS ??? diphenhydrAMINE (Benadryl) 25 mg Capsule Take by mouth. ??? pantoprazole EC (Protonix) 40 mg Tablet, Delayed Release (E.C.) Take 1 tablet by mouth 2 times daily. 180 tablet 3 ??? naloxegoL (Movantik) 12.5 mg Tablet Take 12.5 mg by mouth daily. 90 tablet 1 Allergies Allergen Reactions ??? Metronidazole Rash Family hIstory: oldest daughter with environmental allergies Youngest daughter has asthma Social History Tobacco Use ??? Smoking status: Current Every Day Smoker ??? Smokeless tobacco: Never Used Status: Single. Review of Systems: 10 point review of systems reviewed and negative except as above. Environmental History: Pets in the home: dogs (2). Climate Control: forced hot air heat Objective: BP 130/81 Pulse (!) 107 Wt 63.1 kg (139 lb 1.6 oz) SpO2 98% PHQ-9 QUESTIONNAIRE SCORE ONLY (AMB) 04/28/2021 PHQ - 9 Score (Patient) 9 (Mild Depression) Wt Readings from Last 3 Encounters: 01/20/22 63.1 kg (139 lb 1.6 oz) Gen: awake, alert, no acute distress Head: normocephalic, atraumatic EYES: Conjunctiva not injected or icteric. No discharge. No eyelid edema. ENT: Tympanic membranes clear, no lesions, erythema, or drainage. Normal external ear canals. Nasalpassages show normal mucosa, edematous turbinates bilaterally, no lesions. OP mucosa well hydrated,clear without erythema. No lesions or exudates. 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 She is currently taking pantoprazole 40 mg twice daily. Risks and benefits of skin testing were discussed in detail with the patient. She requested skin testing to the allergens as planned. Consent was obtained today. She has been counseled to stop antihistamines 7 days prior to skin testing. For arm and hand dermatitis, I recommend consultation by dermatology. Referral sent today. All questions were answered, and patient expressed understanding of the plan. Thank you for the opportunity to participate in the care of your patient. Ongoing follow-up with the patient's primary care physician is recommended and encouraged. If I can provide any further assistance, please do not hesitate to contact me. Next visit (studies planned): skin prick testing Monica Torres MD Customer Marketing Intern, Allergy [place] [address] [email or web address] documented in this encounter Plan of Treatment Scheduled Referrals Name Type Priority Associated Diagnoses Order Schedule Referral to Dermatology Outpatient Referral Routine Rash Ordered: 01/20/2022 documented as of this encounter Visit Diagnoses Diagnosis Rash Rash and other nonspecific skin eruption Chronic allergic rhinitis Allergic rhinitis, cause unspecified Eosinophilic esophagitis documented in this encounter Care Teams Tile Inspector Relationship Specialty Start Date End Date Haroldo Burrell PA [address] [place] [address] PCP - General Internal Medicine 01/20/22 10/23/23 documented as of this encounter
--- OUTSIDE RECORDS SUMMARY | 2024-06-03 11:08 | XMS_ITS | Encounter Summary ---
[place] [address] Care Team Providers Care Academic Advisor Name Role Phone Jennifer Barrera MD Primary Care Provider [phone] Encounter Details Date Type Department Care Team (Late st Contact Info) Description 04/29/2021 Telephone [place] [id number] Shey Macedo CMA GASTROENTEROLOGY DEPT Social History Tobacco Use Types Packs/Day Years Used Date Smoking Tobacco: Never Assessed Sex and Gender Information Value Date Recorded Sex Assigned at Not on file Gender Identity Not on file Sexual Orientation Not on file documented as of this encounter Miscellaneous Notes * Telephone Encounter - Shey Macedo CMA - 04/29/2021 11:05 AM EDT Medication Prior Authorization 4L Gastroenterology / [place] [address] Subscriber Insurance: [place] [facility] fax Physician: Cierra Olson Return Pharmacy: Phone: Fax: Medication Requested: Pantoprazole Strength: 40 mg Frequency: BID Disp.: Refills: Currently taking: no Diagnosis for this medication: Eosinophilic esophagitis K20.0 ICD-10 code: Prior medications trialed in this patient: Pantoprazole qd esomeprazole Medication: Outcome/Adverse Reactions: treatment failiure Decision: approved Tracking number/Case number/Reference number: [id number] Effective date: Start: 04/29/2021 End: 04/29/2022 documented in this encounter Plan of Treatment Not on file documented as of this encounter Visit Diagnoses Not on filedocumented in this encounter Care Teams Academic Advisor Relationship Specialty Start Date End Date Jennifer Barrera MD [facility] [address] [facility] [address] [place] [address] PCP - General Family Medicine 03/25/21 01/19/22 documented as of this encounter
[2024-06-03 11:15] VITALS: BP 148/95; PULSE 98; RESP 12; TEMP 36.6; O2SAT 99
--- NOTE | 2024-06-03 11:35 | ED.GENADUL_ITS ---
Discharge Plan Disposition Patient Disposition: Home Condition: Stable Discharge Details Clinical Impression: Abscess of scalp, Anxiety, Depression, Eosinophilic esophagitis, Mild chronic gastritis, Prediabetes, Periorbital edema of both eyes Primary Care Provider: Haroldo Burrell ED Provider: Sloane Meehan Home Meds and New Rx's Prescriptions: New cephalexin 500 mg capsule 500 mg PO QID 7 Days Qty: 28 0RF sulfamethoxazole-trimethoprim [Bactrim DS] 800-160 mg tablet 1 tab PO Q12H 7 Days Qty: 14 0RF No Action sertraline 100 mg tablet 100 mg PO DAILY hydroxyzine HCl 25 mg tablet 25 mg PO TID PRN (Reason: itching) Qty: 20 0RF Rx Instructions: Take for itching beware of drowsiness. pantoprazole 40 mg tablet,delayed release (DR/EC) 40 mg PO DAILY Qty: 30 3RF buprenorphine-naloxone [Suboxone] 2-0.5 mg film 8 mg Sublingual DAILY modafinil 200 mg tablet 200 mg PO DAILY Patient Comments: TAKE ONE TABLET BY MOUTH EVERY MORNING diphenhydramine HCl [Benadryl] 25 mg Capsule 25 mg PO Q4H PRN acetaminophen 500 mg tablet 500 mg PO Q6H PRN (Reason: pain) Qty: 60 1RF ibuprofen 600 mg tablet 600 mg PO TID PRN (Reason: pain) Qty: 60 1RF mupirocin 2 % ointment 1 applic TOPICAL TID Patient Comments: APPLY A SMALL AMOUNT TO AFFECTED AREA(S) THREE TIMES A DAY FOR 5-7 DAYS Discharge Instructions Instructions: Claudia, Adult ED Additional Instructions: You were seen in the emergency department today for evaluation of an abscess on your scalp, and swelling of your face. In our department you have a full physical examination performed, and I suspect that the abscess will require oral antibiotics rather than the topical ones you were using. The swelling in your face is more consistent with fluid than infection around your eye, and should get better over the next few days with these antibiotics as well as cold compresses. You need follow-up with your primary care provider at your scheduled appointment to discuss next steps in management. Please take all the antibiotics until they are gone, even if you start to feel better. You can return to the emergency department if you develop fever or chills, change responsiveness, changes in vision, or any other symptoms that cause concern. Thank you for allowing us to be part of your care. HPI General Mode of arrival: ambulatory . Date/Time Provider Initiated Documentation: 06/03/24 11:06 . Limitations to Documentation: no limitations . Information obtained by: patient, family and old records reviewed . HPI Narrative: HPI: This is a 44-year-old female patient with a past medical history of eosinophilic esophagitis, gastritis, chronic fatigue, opioid use disorder in remission, and a recent history of numerous skin lesions of unknown etiology, presenting for evaluation of scalp abscess and facial swelling. The patient was diagnosed with an abscess on the crown of her head just superior to her hairline, started on mupirocin ointment by urgent care 2 days ago. This morning she woke up and she noted that her face and neck glands were swollen,. She states that she has not had any fevers, chills, but has noted some mild general malaise. She is not experiencing any changes in vision, difficulty swallowing, difficulty breathing. She has not been on antibiotics recently, and did not sustain trauma to her head or face. Exam: Gen: Awake and alert, in no apparent distress HEENT: Non-icteric sclera, pupils equal and reactive bilaterally and EOMs are full without entrapment or pain with extraocular range of motion. The patient has periorbital edema, left greater than right, with no overlying redness, induration, or warmth. She has a 1 cm abscess just superior to her hairline on the left forehead, with a punctate overlying opening, not actively draining. It is fluctuant with overlying redness and induration. Poor dentition appreciated without obvious apical abscess Neck: Supple, right sided lymphadenopathy noted, tender and mobile Lungs: No apparent respiratory distress, normal respiratory effort. CV: Appears well perfused Abdomen: Non-distended MSK: Moves 4 extremities without apparent limitation in ROM Skin: Visualized skin without rashes, cyanosis. Neuro: Normal Gait, no obvious focal deficits or facial asymmetry. Speaks in ful l, clear sentences. Psych: Appropriate for situation. MDM: This is a 44-year-old female patient presenting for evaluation of a skin lesion and facial swelling. My evaluation of her scalp is most consistent with abscess, and her periorbital edema may represent dependent edema in the setting of her infection. I considered preseptal cellulitis though this is less consistent with my history and physical, and she has no pain with EOMs or systemic symptoms to increase my concern for orbital cellulitis. I considered dental infection/abscess. The patient has no evidence on physical examination for retropharyngeal abscess, meningitis, or other severe bacterial infections. Given my reassuring examination I think it is reasonable to trial a course of oral antibiotics and provide the patient with her first dose of Keflex and Bactrim here in the emergency department. She has a primary care visit scheduled, and will follow-up at that visit for reassessment after antibiotic course. ED Course: At this time, the patient has had a full medical evaluation and is safe for discharge to home. They are hemodynamically stable, ambulatory, and tolerating PO. They are understanding of the follow-up plan and return precautions. They left our facility without incident. Sloane Meehan MD Related Data Home Medications ?Medication ?Instructions ?Recorded ?Confirmed sertraline 100 mg tablet 100 mg PO DAILY 11/07/18 06/03/24 acetaminophen 500 mg tablet 500 mg PO Q6H PRN pain #60 tabs 02/13/19 06/03/24 diphenhydramine HCl 25 mg capsule 25 mg PO Q4H PRN 02/13/19 06/03/24 (Benadryl) ibuprofen 600 mg tablet 600 mg PO TID PRN pain #60 tabs 02/13/19 06/03/24 buprenorphine 2 mg-naloxone 0.5 mg 8 mg sublingual DAILY 03/17/21 06/03/24 sublingual film (Suboxone) pantoprazole 40 mg tablet,delayed 40 mg PO DAILY #30 tabs 03/17/21 06/03/24 release hydroxyzine HCl 25 mg tablet 25 mg PO TID PRN itching #20 tabs 12/03/23 06/03/24 modafinil 200 mg tablet 200 mg PO DAILY 01/12/24 06/03/24 cephalexin 500 mg capsule 500 mg PO QID 7 days #28 caps 06/03/24 mupirocin 2 % topical ointment 1 applic topical TID 06/03/24 06/03/24 sulfamethoxazole 800 1 tab PO Q12H 7 days #14 tabs 06/03/24 mg-trimethoprim 160 mg tablet (Bactrim DS) Previous Rx's ?Medication ?Instructions ?Recorded acetaminophen 500 mg tablet 500 mg PO Q6H PRN pain #60 tabs 02/13/19 ibuprofen 600 mg tablet 600 mg PO TID PRN pain #60 tabs 02/13/19 pantoprazole 40 mg tablet,delayed 40 mg PO DAILY #30 tabs 03/17/21 release hydroxyzine HCl 25 mg tablet 25 mg PO TID PRN itching #20 tabs 12/03/23 cephalexin 500 mg capsule 500 mg PO QID 7 days #28 caps 06/03/24 sulfamethoxazole 800 1 tab PO Q12H 7 days #14 tabs 06/03/24 mg-trimethoprim 160 mg tablet (Bactrim DS) Allergies Allergy/AdvReac Type Severity Reaction Status Date / Time metronidazole (From Flagyl) Allergy Mild Unknown Unverified 06/03/24 11:18 Reaction General Stated Complaint: FacialProb HEMA: 4 Course Vital Signs Vital signs: Vital Signs Temperature 36.6 C 06/03/24 11:15 Pulse 98 H 06/03/24 11:15 Respiratory Rate 12 06/03/24 11:15 Blood Pressure 148/95 H 06/03/24 11:15 Pulse Oximetry 99 06/03/24 11:15 Temperature 36.6 C 06/03/24 11:15 Temperature Source Oral 06/03/24 11:15 Pulse 98 H 06/03/24 11:15 Respiratory Rate 12 06/03/24 11:15 Respiratory Effort Normal, Non-Labored 06/03/24 11:19 Blood Pressure 148/95 H 06/03/24 11:15 Blood Pressure Position Sitting 06/03/24 11:15 Pulse Oximetry 99 06/03/24 11:15 Oxygen Delivery Method Room Air 06/03/24 11:15 Oxygen Flow Rate 0 06/03/24 11:15 Pain Level 4 06/03/24 11:15 Medical Decision Making Quality:SDOH Health Related Social Needs: No Data to Display PFSH All Active Problems (Updated 06/03/24 @ 11:37 by Sloane Meehan MD) Periorbital edema of both eyes (Acute) Prediabetes (Acute) Low back pain (Acute) Itchy skin (Acute) Abscess of scalp (Acute) Congestion of nasal sinus (Acute) Migraine (Chronic) Chronic fatigue syndrome (Acute) Eosinophilic esophagitis (Acute ~02/2021) Esophageal reflux (Chronic ~02/2021) Mild chronic gastritis (Acute ~02/2021) Hot flashes (Acute) Nausea (Acute) Constipation (Acute) Tobacco dependence (Acute) Edema of hand (Acute) Disorder of gallbladder (Acute) Right carpal tunnel syndrome (Chronic) Left carpal tunnel syndrome (Chronic) Anxiety (Chronic) Depression (Chronic) History of opioid abuse (Chronic) Enrolled in [facility] Takes suboxone Medical History (Updated 06/03/24 @ 11:37 by Sloane Meehan MD) Anxiety and depression Recurrent moderate major depressive disorder with anxiety Sleep disorder Carpal tunnel syndrome on both sides Substance abuse Fatigue Surgical History (Updated 03/26/21 @ 11:42 by Arielle Cain) History of esophagogastroduodenoscopy (EGD) (~02/2021) Hx of carpal tunnel repair R side Family History (Updated 05/31/24 @ 15:15 by Sharona Landry) Brother Legg-Perthes disease Alcohol use disorder Depression Sister Cystic fibrosis Depression Mother Hypertension Heart disease Diabetes Cancer Obese Father Alcohol use disorder Diabetes Liver cancer Daughter Asthma Aunt Depression Uncle Depression Maternal Grandmother Heart disease Paternal Grandmother Heart disease Other FHx: mental illness Social History (Updated 05/31/24 @ 15:02 by Sharona Landry) Smoking/Tobacco Use Status: Current every day Tobacco Type: cigarettes Tobacco: How many years used: 30 Quit status: considering quitting Smoking risk assessment performed?: Yes Alcohol Intake: former Year quit: 1996 Drug use: Never Substance use type: does not use Adopted: No Caregiver/Support person: No Foster care: Yes Household members: none Housing: apartment Number of Children: 2 number of grandchildren: 3 Communication Needs: None Education Level: high school Do you need help understanding health information?: Rarely current occupation: Housekeeping Pets and animals: Yes (2) Pets and animals: dog(s) Do you think of yourself as: straight/heterosexual Current gender identity: female What is your relationship status?: never How often do you talk on the phone with friends or family?: three or more times per week Do you belong to any clubs or organized social groups?: no Panel score (0-1 are the most socially isolated patients): 1 Seatbelt use: sometimes Helmet use: Yes Drive intox or ride w/intox hazmat tanker driver: No Do you feel safe at home: Yes Do you feel safe in your relationship?: Yes
[2024-06-03] MEDS: Cephalexin 500 MG CAP, 4 CAPS/BTL PO (11:49)
[2024-06-03] MEDS: Sulfameth/Trimeth DS, 2 TABS/BTL 1 TAB PO (11:49)
[2024-06-03] MEDS: Sulfameth/Trimeth DS TAB 1 TAB PO (11:49)
[2024-06-03] MEDS: Cephalexin 500 MG CAP PO (11:49)
== END 2024-06-03 11:53 | disposition home or self-care (01) ==
PROVIDERS: Emergency Provider Emergency Medicine; PCP Physician Assistant
DX: L02.811 Cutaneous abscess of head [any part, except face] (principal); H05.223 Edema of bilateral orbit; F17.210 Nicotine dependence, cigarettes, uncomplicated
CPT/HCPCS: 99283

== ENCOUNTER 2024-09-19 00:24 | Outpatient (CLI) | payer MEDICAID, SELFPAY ==
--- NOTE | 2024-09-19 08:03 | DI.US_ITS ---
Exam(s) US THYROID EXAM: US THYROID CLINICAL HISTORY: tender rt of thyroid, r09.89. TECHNIQUE: Ultrasound thyroid performed using standard protocol. COMPARISON: No exams were available for comparison FINDINGS: ISTHMUS: 3 mm RIGHT LOBE: Size: 5.2 x 1.3 x 1.3 cm Echogenicity: Normal. Vascularity: Normal. Nodules: No solid nodules. 5 millimeter colloid cyst mid right lobe. LEFT LOBE: Size: 3.8 x 0.8 x 1.3 cm Echogenicity: Normal. Vascularity: Normal. Nodules: None. OTHER FINDINGS: Corresponding to the palpable abnormality on the right side of the neck, there are sm all, normal appearing lymph nodes. Other small lymph nodes are noted on the left side of the neck. No suspicious lymph IMPRESSION: 5 millimeter right-sided colloid cyst. Bilateral cervical lymph nodes, one of which appears to correspond to the palpable abnormality on the right side of the neck measuring 14 millimeters in greatest dimension. No suspicious appearing lymp h nodes. DATA REPOSITORY:
== END 2024-09-19 00:44 ==
LOC: DI 00:24
PROVIDERS: PCP Nurse Practitioner; Visit Provider Nurse Practitioner
DX: R59.0 Localized enlarged lymph nodes (principal)
CPT/HCPCS: 76536